=== PATIENT | male | born 1950 | race African-American/Black ===

== ENCOUNTER 2019-10-17 17:59 | Inpatient (IN) | payer OTHER ==
[~2019-10-17] VITALS: Ht 172.7 cm; Wt 56.3 kg
[2019-10-17] MEDS ORDERED: ZOFRAN4 M3 ORAL (18:08)
[2019-10-17] MEDS ORDERED: ACETAMINOPHEN325 M1 ORAL (18:08)
[2019-10-17] MEDS ORDERED: NORCO 10-325 T1 EACH ORAL (18:08)
[2019-10-17] MEDS ORDERED: AMLODIPINE BESY10 MG ORAL (18:08)
[2019-10-17] MEDS ORDERED: OMEPRAZOLE40 M1 ORAL (18:08)
[2019-10-17] MEDS ORDERED: ROBITUSSIN COU118 M1 ORAL (18:08)
[2019-10-17] MEDS ORDERED: B COMPLEX1 EACH ORAL (18:08)
[2019-10-17] MEDS ORDERED: ALBUTEROL2.5 MG/3 M INH (18:08)
[2019-10-17] MEDS ORDERED: ATORVASTATIN CA20 MG ORAL (18:08)
[2019-10-17] MEDS ORDERED: ASPIR 8181 MG ORAL (18:08)
[2019-10-17] MEDS ORDERED: CAPOTEN12.5 MG GT (18:08)
--- NOTE | 2019-10-17 18:09 | NUR ---
ED Nurse Note: Pt from [facility] brought in by [facility] ambulance for coughing and fever. Awake but non verbal, occasionally follows commands. No respiratory distress. 102.5 Rectal temp upon ED arrival. EMS reports tylenol 650mg was given at 1545 rectally in residential.
[2019-10-17 18:12] VITALS: BP 129/80
--- NOTE | 2019-10-17 18:33 | Emergency Room Report ---
History of Present Illness General Chief Complaint: Upper Respiratory Illness Source: Patient, Medical Record, EMS Present Illness HPI Patient sent to the emergency room from nursing facility With reports of cough and fever given the recent circumstances there was concern and consideration from covid-19 Patient himself is not an appropriate historian however there was no reports of vomiting or diarrhea Patient has been reported to be weaker than usual however But no obvious focal deficit were reported History of present illness is significantly limited Allergies: Coded Allergies: No Known Allergies (Unverified , 10/17/19) COVID-19 Screening Contact w/high risk pt: Yes Recent Travel to affected area: No Experienced COVID-19 symptoms?: Yes COVID-19 symptoms experienced: Fever (T>100.4F or >38C), Cough Patient History Limited by: medical condition Past Medical History: see triage record Reviewed Nursing Documentation: PMH: Agreed; PSxH: Agreed Nursing Documentation-PMH Past Medical History: No History, Except For Hx Hypertension: Yes Hx Gastrointestinal Problems: Yes - GERD Review of Systems All Other Systems: limited - Other than the ones mentioned in the history of present illness all others are reviewed however they do stay limited due to the patient's mental status Physical Exam Vital Signs Date Time Temp Pulse Resp B/P (MAP) Pulse Ox O2 Delivery O2 Flow Rate FiO2 10/17/19 17:59 103.5 98 22 172/90 (117) 95 Room Air Sp02 EP Interpretation: reviewed, normal General Appearance: no apparent distress Head: normocephalic, atraumatic Eyes: bilateral eye PERRL, bilateral eye EOMI ENT: EOM grossly intact Neck: supple Respiratory: no respiratory distress, no retraction, no accessory muscle use, crackles - Bilaterally Cardiovascular #1: no edema Gastrointestinal: non tender, soft Genitourinary: no CVA tenderness Musculoskeletal: normal inspection Neurologic: alert, responsive Skin: no rash Lymphatic: no adenopathy Medical Decision Making Diagnostic Impression: Primary Impression: Sepsis Additional Impressions: Suspected COVID-19 virus infection URI (upper respiratory infection) ER Course Patient is a fairly complex patient with multiple differential to consideration including but not limited to cardiac cardiopulmonary and vascular emergencies Patient also evaluated for covid-19 X-ray does not show any obvious acute process Blood work obtained patient further hydrated Given the febrile illness patient will be admitted for further care Labs Test 10/17/19 18:15 10/17/19 18:53 White Blood Count 11.6 K/UL (4.8-10.8) Red Blood Count 5.49 M/UL (4.70-6.10) Hemoglobin 12.7 G/DL (14.2-18.0) Hematocrit 41.7 % (42.0-52.0) Mean Corpuscular Volume 76 FL (80-99) Mean Corpuscular Hemoglobin 23.1 PG (27.0-31.0) Mean Corpuscular Hemoglobin Concent 30.4 G/DL (32.0-36.0) Red Cell Distribution Width 18.9 % (11.6-14.8) Platelet Count 303 K/UL (150-450) Mean Platelet Volume 6.0 FL (6.5-10.1) Neutrophils (%) (Auto) 87.1 % (45.0-75.0) Lymphocytes (%) (Auto) 5.8 % (20.0-45.0) Monocytes (%) (Auto) 6.5 % (1.0-10.0) Eosinophils (%) (Auto) 0.0 % (0.0-3.0) Basophils (%) (Auto) 0.6 % (0.0-2.0) Sodium Level 142 MMOL/L (136-145) Potassium Level 3.6 MMOL/L (3.5-5.1) Chloride Level 104 MMOL/L (98-107) Carbon Dioxide Level 26 MMOL/L (21-32) Anion Gap 12 mmol/L (5-15) Blood Urea Nitrogen 23 mg/dL (7-18) Creatinine 0.9 MG/DL (0.55-1.30) Estimat Glomerular Filtration Rate > 60 mL/min (>60) Glucose Level 117 MG/DL (74-106) Lactic Acid Level 1.10 mmol/L (0.4-2.0) Calcium Level 9.2 MG/DL (8.5-10.1) Total Bilirubin 0.3 MG/DL (0.2-1.0) Aspartate Amino Transf (AST/SGOT) 50 U/L (15-37) Alanine Aminotransferase (ALT/SGPT) 44 U/L (12-78) Alkaline Phosphatase 82 U/L (46-116) Total Creatine Kinase 571 U/L (26-308) Creatine Kinase MB < 0.5 NG/ML (0.0-3.6) Creatine Kinase MB Relative Index 0.0 Troponin I 0.000 ng/mL (0.000-0.056) Pro-B-Type Natriuretic Peptide 121 pg/mL (0-125) Total Protein 8.4 G/DL (6.4-8.2) Albumin 3.3 G/DL (3.4-5.0) Globulin 5.1 g/dL Albumin/Globulin Ratio 0.6 (1.0-2.7) Lipase 155 U/L (73-393) Urine Color Yellow Urine Appearance Clear Urine pH 5 (4.5-8.0) Urine Specific [place] 1.020 (1.005-1.035) Urine Protein 2+ (NEGATIVE) Urine Glucose (UA) Negative (NEGATIVE) Urine Ketones 3+ (NEGATIVE) Urine Blood 1+ (NEGATIVE) Urine Nitrite Negative (NEGATIVE) Urine Bilirubin Negative (NEGATIVE) Urine Urobilinogen 1 MG/DL (0.0-1.0) Urine Leukocyte Esterase Negative (NEGATIVE) Urine RBC 0-2 /HPF (0 - 0) Urine WBC 0-2 /HPF (0 - 0) Urine Squamous Epithelial Cells Occasional /LPF Urine Bacteria Few /HPF (NONE) Rhythm Strip Diag. Results EP Interpretation: yes Rate: 78 Rhythm: NSR, no PVC's, no ectopy Last Vital Signs Date Time Temp Pulse Resp B/P (MAP) Pulse Ox O2 Delivery O2 Flow Rate FiO2 10/17/19 17:59 103.5 98 22 172/90 (117) 95 Room Air Status: improved Disposition: ADMITTED INPATIENT Condition: Serious Referrals: Campbell Robrets MD (PCP) Lucien Gamez DO Oct 17, 2019 18:33
--- NOTE | 2019-10-17 18:40 | NUR ---
ED Nurse Note: Collected blood/urine/MRSA/VRE/CRE/Flu swab and Covid19 swab sent to lab.
[2019-10-17 18:51] LABS: BASOPHILS % (AUTO) 0.6 % (0.0-2.0); HEMATOCRIT 41.7 % (42.0-52.0); HEMOGLOBIN 12.7 G/DL (14.2-18.0); LYMPHOCYTES % (AUTO) 5.8 % (20.0-45.0); MEAN CORPUSCULAR VOLUME 76 FL (80-99); MONOCYTES % (AUTO) 6.5 % (1.0-10.0); NEUTROPHILS % (AUTO) 87.1 % (45.0-75.0); PLATELET COUNT 303 K/UL (150-450); RED BLOOD COUNT 5.49 M/UL (4.70-6.10); RED CELL DISTRIBUTION WIDTH 18.9 % (11.6-14.8); WHITE BLOOD COUNT 11.6 K/UL (4.8-10.8)
--- NOTE | 2019-10-17 19:05 | NUR ---
ED Nurse Note: Collected urine then sent.
[2019-10-17 19:09] LABS: POTASSIUM 3.6 MMOL/L (3.5-5.1); SODIUM 142 MMOL/L (136-145)
[2019-10-17 19:10] LABS: ANION GAP 12 mmol/L (5-15); BLOOD UREA NITROGEN 23 mg/dL (7-18); CALCIUM 9.2 MG/DL (8.5-10.1); CARBON DIOXIDE 26 MMOL/L (21-32); CHLORIDE 104 MMOL/L (98-107); CREATININE 0.9 MG/DL (0.55-1.30)
[2019-10-17 19:30] LABS: APPEARANCE,URINE CLEAR; BILIRUBIN, URINE NEGATIVE (NEGATIVE); GLUCOSE, URINE (UA) NEGATIVE (NEGATIVE); KETONES,URINE 3+ (NEGATIVE); LEUKOCYTE ESTERASE ,URINE NEGATIVE (NEGATIVE); NITRITE,URINE NEGATIVE (NEGATIVE); PH,URINE 5 (4.5-8.0); PROTEIN,URINE 2+ (NEGATIVE); UROBILINOGEN,URINE 1 MG/DL (0.0-1.0)
[2019-10-17 19:33] LABS: COLOR,URINE YELLOW
[2019-10-17 19:41] LABS: ALANINE AMINOTRANSFERASE 44 U/L (12-78); ALBUMIN 3.3 G/DL (3.4-5.0); ALBUMIN/GLOBULIN RATIO 0.6 (1.0-2.7); ALKALINE PHOSPHATASE 82 U/L (46-116); ASPARTATE AMINO TRANSFERASE 50 U/L (15-37); BILIRUBIN,TOTAL 0.3 MG/DL (0.2-1.0); CKMB < 0.5 NG/ML (0.0-3.6); CREATINE KINASE 571 U/L (26-308)
--- NOTE | 2019-10-17 20:14 | NUR ---
HAND-OFF: Report given to Eric Carter RN.
[2019-10-17 20:15] VITALS: BP 107/76
--- NOTE | 2019-10-17 20:15 | NUR ---
ED Nurse Note: RECEIVED PATIENT FROM FLY PEREZ. PATIENT IN BED WITH NO ACUTE SIGNS OF DISTRESS. PATIENT PRESENTS WITH COPIOUS MUCUS ON MASK AND GOWN. CHANGED GOWN AND REMOVED SOILED LINENS. REATTACHED TO MONITOR; VSS. IV INTACT AND PATENT. 2ND IV ESTABLISHED ON LEFT HAND 18G. REASSESSED TEMP 99F RECTAL. ADMINISTERED ANTIPYRERTICS AND IV ABX PRESCRIBED. PATIENT TOLERATED WELL.
[2019-10-17] MEDS ORDERED: Acetaminophen 650 MG SUPP RECTAL ONE ×3 (20:59→21:00)
[2019-10-17 22:00] VITALS: BP 124/70
[2019-10-17] MEDS ORDERED: Albuterol ud Inhalation IN-LINE PRN (22:00)
[2019-10-17] MEDS ORDERED: HYDROcodone/Acetamin 10/325 tab ORAL PRN (22:00)
--- NOTE | 2019-10-17 22:00 | NUR ---
ED Nurse Note: Patient transferred to striker bed; tolerated well; free from injury. reattached to monitor; vss. pt ao4; delayed speech; able to make needs known; follows command and presents with purposeful movement. cedillo noted;intact and patent; draining well to gravity. all safety measures met; bed locked at lowest position; bed alarm on; side rails raised x3 call light within reach. Discussed plan of care; patient aware of pending admission.
[2019-10-17] MEDS: Azithromycin 500 MG in NS 275 ML IV SCH (22:04)
[2019-10-17] MEDS: cefTRIAXone 1 GM in NS 55 ML IVPB SCH (22:05)
[2019-10-17] MEDS ORDERED: Albuterol 90mcg Inhaler 8gm INH PRN (22:45)
[2019-10-18] VITALS (9 sets, daily range): BP systolic 110–157; BP diastolic 60–88
--- NOTE | 2019-10-18 | NUR ---
ED Nurse Note: PATIENT SLEEPING IN BED WITH NO ACUTE DISTRESS. VITALS STABLE TO BASELINE. WILL CONITNUE TO MONITOR. ALL SAFETY MEASURES MET.
[2019-10-18] MEDS ORDERED: HYDROcodone/Acetamin 10/325 tab ORAL PRN (02:00)
--- NOTE | 2019-10-18 02:00 | NUR ---
ED Nurse Note: Patient presents with overproductive secretions. Demonstrated how to self suction with dina; patient able to return demonstration. Placed suction at arms length. patient resting in bed with no acute distress. will continue to monitor.
--- NOTE | 2019-10-18 04:00 | NUR ---
ED Nurse Note: Patient in bed with no acute distress. vitals stable to baseline. Pt noted to self suction secretions. able to make needs known. will continue to monitor.
--- NOTE | 2019-10-18 04:30 | History and Physical Report ---
DATE OF ADMISSION: 10/17/2019 HISTORY OF PRESENT ILLNESS: This is a 68-year-old male who came to the emergency room from [facility] where he has fever, cough, short of breath for last few days. The patient came with the rule out COVID-19. The patient also has been a smoker and he is feeling gikp-bx-lytldhid short of breath and advised getting a chest x-ray showing bilateral pneumonia with interstitial lung disease. PAST MEDICAL HISTORY: Significant for CHF, cardiomyopathy, hypertension, COPD, and smoker. ALLERGIES: NKA. FAMILY HISTORY: Noncontributory. SOCIAL HISTORY: Lives at senior living, mostly wheelchair bound. REVIEW OF SYSTEMS: He is feeling short of breath, cough, and no fever at senior living on and off for last 2 days and productive cough. The chest x-ray was showing pneumonia. PHYSICAL EXAMINATION: VITAL SIGNS: Blood pressure is 130/70, pulse 84, respirations 18, and temperature is 99.6. Currently, his skin is diaphoretic. HEENT: Eyes are open. NECK: Supple. CHEST: Bilateral scattered wheezing and crackles. CARDIOVASCULAR: Irregular rhythm. No gallop. No murmur. ABDOMEN: Soft. Positive bowel sounds, nontender. EXTREMITIES: No edema. GENITOURINARY: Deferred. LABORATORY DATA: White counts are slightly high. ASSESSMENT AND PLAN: 1. Acute COPD exacerbation. 2. Rule out COVID. 3. Pneumonia. 4. CHF. 5. Hypertension. 6. History of smoker. 7. We will put him on mechanical soft diet, IV fluid, IV antibiotics, Zithromax and consider Pulmonary consult and ID consult. Fritz Roberts M.D. DR: Nelli JOB#: [id number] CC:
--- NOTE | 2019-10-18 06:00 | NUR ---
ED Nurse Note: patient incontinent and presents with bm; soft formed stool. removed soiled linen; provided partial bed bath; changed gown. reattached to monitor; vitals remain stable to baseline. suction within reach.
--- NOTE | 2019-10-18 07:13 | NUR ---
HAND-OFF: Report given to JOSÉ ANTONIO PEREZ. PATIENT IN STABLE CONDITION. ENDORSED PENDING ADMISSION.
--- NOTE | 2019-10-18 08:51 | Diagnostic Imaging Report ---
Indication: Chest pain Technique: XRAY Chest 1v Comparison: None Findings: Lungs are mildly hyperinflated. There is no focal airspace consolidation. No pleural effusion, pneumothorax or radiographic evidence of suggest pulmonary edema. Heart size and mediastinal contours within normal limits. Atherosclerotic gastric calcifications are noted. There are degenerative changes in the spine and shoulders. No acute osseous abnormality. Impression: Slight hyperinflation may suggest COPD. Correlation with clinical history recommended. No focal airspace consolidation. Atherosclerotic vascular calcifications.
[2019-10-18] MEDS ORDERED: Captopril 25mg tab ONE (09:00)
[2019-10-18] MEDS: Captopril 12.5mg tab ORAL SCH ×2 (09:03→17:16)
[2019-10-18] MEDS: Aspirin EC 81mg tab ORAL SCH (09:03)
--- NOTE | 2019-10-18 09:17 | NUR ---
ED Nurse Note: Pt suctioned due to excess mucus. Pt given morning meds. Pt VSS and no acute distress.
[2019-10-18] MEDS ORDERED: Captopril 12.5mg tab GT SCH (10:00)
--- NOTE | 2019-10-18 10:30 | NUR ---
*-* INSURANCE *-* ALL AVAILABLE CLINICALS HAVE BEEN FAXED TO: PATIENT IN ER WAITING ON BED [facility] ref# [facility] ph# [phone] fax# [phone] & [facility] ph# [phone] fax# [phone]
--- NOTE | 2019-10-18 12:00 | NUR ---
ED Nurse Note: f/c output 500 cc.
--- NOTE | 2019-10-18 14:15 | NUR ---
ED Nurse Note: Report given to Andi PEREZtelecommunications cable jointer floor.
--- NOTE | 2019-10-18 14:50 | NUR ---
ED Nurse Note: Pt cleared by MD to be transferred to tele floor. Pt is on monitor and received by ANA Escamilla.
--- NOTE | 2019-10-18 18:27 | NUR ---
NURSE NOTES: Patient arrived on floor with nausea. Provided po Zofran. Patient had a fever of 103.6. Provided the po tylenol 325 mg. and temperature is at 102.6. Cooling measures provided, removed sheets and blanket, loosened hospital gown, turned on air conditioner and turned down room thermostat. Left message with Dr. Dioni Gordillo informing him of patients temperature. Left message with Niharika at Dr. Campbell Roberts's answering service. Will continue to monitor patient.
--- NOTE | 2019-10-18 19:04 | NUR ---
NURSE NOTES: Applied more cooling measures, one ice bag under each arm pit, protected with a pillow case, snaps at top of gown opened on both sides to expose more skin, blankets and sheets removed. Patient cooperating fully.
--- NOTE | 2019-10-18 19:22 | NUR ---
HAND-OFF: Report given to Mukund Siddiqi. Patient sitting up in bed, watching television, on room air, bed in lowest position, call light within reach, SCD's on bilateral lower extremities, no c/o pain, ice pack under bilateral armpits, sheets and blankets off. Just entered order for acetaminophen for fever.
--- NOTE | 2019-10-18 19:23 | NUR ---
NURSE NOTES: Got report from Andi RN. Pt in stable condition. Denies any pain. Denies any n/v or SOB. No s/s of distress or discomfort noted. Pt resting in bed comfortably. Bed in low and locked position, call light within reach, bedside table within reach. Continue to monitor.
[2019-10-18] MEDS: cefTRIAXone 1 GM in NS 55 ML IVPB SCH (21:38)
[2019-10-18] MEDS: Azithromycin 500 MG in NS 275 ML IV SCH (22:58)
[2019-10-19] VITALS: BP 141/70
--- NOTE | 2019-10-19 00:15 | Progress Note ---
DATE: 10/18/2019 HISTORY OF PRESENT ILLNESS: The patient was admitted last night for having a fever, sepsis, short of breath, cough, and sputum production. The patient is still not looking good, having a fever of 102 and cough and congestion, and poor p.o. intake. PHYSICAL EXAMINATION: VITAL SIGNS: Blood pressure is 120/70, pulse 84, respirations 18 to 24, temperature is 102. His skin is slightly diaphoretic. HEENT: Eyes are open. NECK: Supple. CHEST: Bilateral decreased breath sounds and scattered crackles. CARDIOVASCULAR: Regular rhythm. No gallop. No murmur. ABDOMEN: Soft. Positive bowel sounds. Nontender. EXTREMITIES: No edema. LABORATORY DATA: BUN and creatinine slightly high. ASSESSMENT AND PLAN: 1. Dehydration. 2. Rule out COVID. 3. Pneumonia. 4. Sepsis. 5. Hypertension. The patient is on tele bed. Continue current treatment. Continue IV antibiotics. Bronchodilator treatment. Pulmonary is on consult and ID is also on consult. Fritz Roberts M.D. DR: Nelli JOB#: [id number] CC:
[2019-10-19] MEDS: Captopril 12.5mg tab ORAL SCH ×3 (02:06→17:19)
[2019-10-19 04:00] VITALS: BP 133/72
--- NOTE | 2019-10-19 07:30 | NUR ---
HAND-OFF: Report given to Angela PEREZ.
[2019-10-19 08:00] VITALS: BP 160/85
--- NOTE | 2019-10-19 08:23 | NUR ---
CASE MANAGEMENT:REVIEW 10/17/19 @ 1754 68 YR OLD MALE BIBA FROM [facility] CC: COUGH AND FEVER SI: SEPSIS. SUSPECTED COVID 19 103.5 98 22 172/90 95% ON RA WBC+11.6 TCK+571 IS: 1L NS BOLUS COVID 19 SWAB CHEST XRAY INFLUENZA A&B BLOOD CX PATIENT REMAINED IN ER UNTIL 10/18/19 @ 1827 AT WHICH TIME HE WAS ADMITTED TO TELEMETRY 10/19/19 SI: SEPSIS. SUSPECTED COVID 19 99.5 108 20 141/70 95% ON RA IS: IV ROCEPHIN Q24 IV AZITHROMYCIN Q24 IVF@75/HR LIPITOR PO QHS CAPTOPRIL PO Q8HRS NORVASC PO QD ASA PO QD TYLENOL PO Q6HRS PRN : TELEMETRY STATUS DCP: FROM [facility] PLAN: ISOLATION F/U ON PENDING BLOOD CX AND COVID 19
[2019-10-19] MEDS: Aspirin EC 81mg tab ORAL SCH (09:53)
[2019-10-19 12:00] VITALS: BP 112/77
--- NOTE | 2019-10-19 12:41 | Infectious Diseases Prog Note ---
Assessment/Plan Assessment/Plan ID consult was dictated Subjective Allergies: Coded Allergies: No Known Allergies (Unverified , 10/17/19) Objective Vital Signs Last 24 Hour Vital Signs Date Time Temp Pulse Resp B/P (MAP) Pulse Ox O2 Delivery O2 Flow Rate FiO2 10/19/19 09:53 160/85 10/19/19 09:53 100 160/85 10/19/19 09:00 Room Air 10/19/19 08:00 97.5 100 22 160/85 (110) 95 10/19/19 07:55 79 10/19/19 07:00 100 18 95 Room Air 21 10/19/19 06:36 99.5 10/19/19 04:00 83 10/19/19 04:00 99.5 95 20 133/72 (92) 96 10/19/19 02:47 Room Air 10/19/19 02:06 141/70 10/19/19 00:00 108 10/19/19 00:00 99.5 98 20 141/70 (93) 95 10/18/19 21:00 Room Air 10/18/19 20:05 92 16 94 Room Air 21 10/18/19 20:00 101 10/18/19 20:00 101.0 88 20 145/70 (95) 95 10/18/19 17:47 102.6 10/18/19 17:16 157/69 10/18/19 16:46 Room Air 10/18/19 16:00 108 10/18/19 16:00 103.6 91 20 157/69 (98) 92 10/18/19 14:50 97.9 88 18 133/76 99 Room Air 10/18/19 14:40 99.1 83 17 129/69 98 Room Air Height (Feet): 5 Height (Inches): 8.00 Weight (Pounds): 135 Microbiology Date/Time Source Procedure Growth Status 10/17/19 18:30 Blood Blood Culture - Preliminary NO GROWTH AFTER 24 HOURS Resulted 10/17/19 18:15 Blood Blood Culture - Preliminary NO GROWTH AFTER 24 HOURS Resulted 10/17/19 18:15 Nasal Nares - Final Complete 10/17/19 18:15 Nasal Nares - Final Complete Current Medications Medications (Trade) Dose Ordered Sig/Leslie Route PRN Reason Start Time Stop Time Status Last Admin Dose Admin Acetaminophen (Tylenol) 325 mg Q6H PRN ORAL For Pain 10/17/19 22:00 11/16/19 21:59 10/18/19 17:17 Acetaminophen (Tylenol) 650 mg Q6H PRN ORAL Temp >100.5 10/18/19 19:30 11/17/19 19:29 10/19/19 06:06 Acetaminophen/ Hydrocodone Bitart ([place] 10/325) 1 tab Q4H PRN ORAL Pain Scale (6-10) 10/18/19 02:00 10/25/19 01:59 10/18/19 03:07 Albuterol Sulfate (Proventil MDI) 1 puff Q4H PRN INH Shortness of Breath 10/17/19 22:45 01/15/20 22:44 Amlodipine Besylate (Norvasc) 10 mg DAILY ORAL 10/18/19 09:00 11/17/19 08:59 10/19/19 09:53 Aspirin (Ecotrin) 81 mg DAILY ORAL 10/18/19 09:00 12/02/19 08:59 10/19/19 09:53 Atorvastatin Calcium (Lipitor) 20 mg BEDTIME ORAL 10/19/19 21:00 01/16/20 20:59 Azithromycin 500 mg/Sodium Chloride 275 ml @ 275 mls/hr Q24HRS IV 10/17/19 23:00 10/22/19 22:59 10/18/19 22:58 Captopril (Capoten) 12.5 mg Q8H ORAL 10/18/19 10:00 11/17/19 09:59 10/19/19 09:53 Ceftriaxone Sodium 1 gm/ Sodium Chloride 55 ml @ 110 mls/hr Q24HRS IVPB 10/17/19 22:00 10/24/19 21:59 10/18/19 21:38 Ondansetron HCl (Zofran) 4 mg Q6H PRN IVP Nausea & Vomiting 10/18/19 19:30 11/17/19 19:29 Sodium Chloride 1,000 ml @ 75 mls/hr [id number] IV 10/17/19 22:00 11/16/19 21:59 10/19/19 10:02 Octavio Portillo MD Oct 19, 2019 12:41
--- NOTE | 2019-10-19 15:00 | NUR ---
NURSE NOTES: Received pt at 0730 from [facility]. pt is awake and orient. pt has intact iv access is running well . no complain of pain. pt is on continues hear monitoring. pt has Azar cath in place is working well. all needs attended, bed is locked and is in the lowest position. call light within easy reach will continue to monitor.
[2019-10-19 16:00] VITALS: BP 105/69
--- NOTE | 2019-10-19 16:03 | NUR ---
*-* INSURANCE *-* UPDATED AVAILABLE CLINICALS HAVE BEEN FAXED TO: [facility] ref# pending ph# [phone] fax# [phone] & [facility] ph# [phone] fax# [phone] Addendum: 10/20/19 at 0841 by MOOKIE CONNELL CM [facility] ref# [id number] CM: Maryanne Mixon Ph# [phone] ext [phone] fax# [phone]
--- NOTE | 2019-10-19 19:59 | Consultation ---
DATE OF CONSULTATION: 10/19/2019 PULMONARY CONSULTATION CONSULTING PHYSICIAN: Claudio Aguilar M.D. REQUESTING PHYSICIAN: Fritz Roberts M.D. REASON FOR CONSULTATION: Pneumonia. HISTORY OF PRESENT ILLNESS: This is a 68-year-old male who is a [facility] resident. He was brought into the hospital with complaints of cough and chest congestion. There was concern about COVID-19. The patient is a very poor historian. He was found to be on room air without any laboratory testing abnormality except for mild leukocytosis. He also underwent a chest x-ray which showed slight hyperinflation with no acute findings. The patient admitted to the medical floor. PAST MEDICAL HISTORY: Notable for GERD, hypertension, [facility] resident. REVIEW OF SYSTEMS: Denies any headaches, hematemesis, melena, hematochezia, night sweats, or weight loss. PHYSICAL EXAMINATION: GENERAL: Reveals a 68-year-old male. HEENT: Unremarkable. LUNGS: Clear breath sounds bilaterally. HEART: Normal heart sounds. ABDOMEN: Soft. EXTREMITIES: There is no edema. NEUROLOGIC: Nonfocal. LABORATORY DATA: Laboratory testing as discussed above is normal except for mild leukocytosis. Chemistries are negative. Urinalysis shows few pus cells. X-ray chest negative. Blood cultures negative so far. IMPRESSION: 1. Rule out pneumonia. 2. Leukocytosis. 3. shelter resident. 4. Hypertension. DISCUSSION: Admitted to the hospital. Continue home medications. Empiric broad-spectrum antibiotics to be given consisting of Rocephin and azithromycin. We will provide oxygen and pulmonary hygiene. We will follow. Claudio Aguilar M.D. DR: Johnny JOB#: [id number] CC:
[2019-10-19 20:00] VITALS: BP 133/99
[2019-10-19] MEDS: Atorvastatin 20mg tab ORAL SCH (20:59)
--- NOTE | 2019-10-19 21:30 | Consultation ---
DATE OF CONSULTATION: 10/19/2019 INFECTIOUS DISEASE CONSULTATION This consult is for coverage of Dr. Foley. CONSULTING PHYSICIAN: Octavio Portillo MD. PRIMARY ATTENDING: Campbell Roberts MD. REASON FOR CONSULT: Sepsis, COPD exacerbation, rule out of COVID. HISTORY OF PRESENT ILLNESS: This is a 68-year-old male who is a long term resident admitted on 10/17/2019 because of fever, shortness of breath, coughing. Had a temperature of 103.5 in the ER. At the time of admission, he was tachypneic with a respiratory rate up to 27. Patient is not a source of history. PAST MEDICAL HISTORY: Hypertension, history of CVA, hyperlipidemia, gastroesophageal reflux disease. ALLERGIES: No known drug allergies. MEDICATIONS: Atorvastatin, Zofran, Tylenol, captopril, amlodipine, Beltrami, azithromycin, albuterol, ceftriaxone, Tylenol. SOCIAL HISTORY: Single. [facility] resident. Former smoker. No other history is obtainable by the patient. PHYSICAL EXAMINATION: VITAL SIGNS: Current temperature 97.5, pulse 100, blood pressure 160/85. GENERAL APPEARANCE: No acute distress. Seems to be thin. HEAD AND NECK: [place] conjunctivae. HEART: Tachycardic. LUNGS: Decreased sounds. ABDOMEN: Soft. EXTREMITIES: No edema. NEUROLOGIC: He is awake, does not communicate. LABORATORY AND DIAGNOSTIC DATA: WBC 11.6, hemoglobin 12.7, hematocrit 41.7, platelets 303. Sodium 142, potassium 3.6, chloride 104, bicarb 26, BUN 23, creatinine 0.9, glucose is 117. Blood culture so far no growth. Influenza A and B are negative. IMPRESSION: Sepsis with tachycardia, tachypnea, fever, COPD exacerbation, suspected COVID-19 disease, hypertension, hyperlipidemia, status post CVA, lymphocytopenia. RECOMMENDATION: Continue Zithromax and Rocephin. We will follow up COVID-19 tests. We will follow up the cultures. At the end of my exam, I thank Dr. Roberts, for involving me in the care of this patient. Octavio Portillo M.D. DR: ANTIONETTE JOB#: [id number] CC:
--- NOTE | 2019-10-19 23:00 | Progress Note ---
DATE: 10/19/2019 HISTORY OF PRESENT ILLNESS: This is a 68-year-old male who came with short of breath, cough with sputum production, fever, to rule out COVID. His results are pending. Physically, he is doing okay. His fever subsided. Shortness of breath is improving. PHYSICAL EXAMINATION: VITAL SIGNS: His T-max today is 101, blood pressure is 112/77, pulse 110, respirations 20, saturation 92% to 95%. HEENT: NAD. CHEST: Bilateral decreased breath sounds. Scattered crackles. CARDIOVASCULAR: Regular rhythm. ABDOMEN: Soft. EXTREMITIES: CCE. NEUROLOGICAL: The patient has generalized weakness. LABORATORY DATA: The patient has no labs today. His COVID test is pending. Blood cultures are negative. ASSESSMENT AND PLAN: 1. Fever, rule out sepsis. 2. Acute COPD. 3. Pneumonia. 4. Hypertension. 5. We will currently continue antibiotics. The patient is currently on aspirin, Norvasc, , Zithromax. Pulmonary and ID is on consult. Fritz Roberts M.D. DR: Nelli JOB#: [id number] CC:
[2019-10-19] MEDS: cefTRIAXone 1 GM in NS 55 ML IVPB SCH (23:03)
[2019-10-19] MEDS: Azithromycin 500 MG in NS 275 ML IV SCH (23:05)
[2019-10-20] VITALS: BP 115/61
[2019-10-20] MEDS: Captopril 12.5mg tab ORAL SCH ×3 (01:36→17:08)
[2019-10-20 04:00] VITALS: BP 107/69
--- NOTE | 2019-10-20 07:22 | NUR ---
HAND-OFF: Report given to ANA Miller. Patient shows no signs of distress. Endorsed plan of care. .
--- NOTE | 2019-10-20 07:30 | NUR ---
NURSE NOTES: Received pt from ANA CARABALLO. pt is awake and orient. pt has intact iv access is running well . no complain of pain. pt is on continues hear monitoring. pt has Azar cath in place is working well. all needs attended, bed is locked and is in the lowest position. call light within easy reach. will continue to monitor.
[2019-10-20 08:00] VITALS: BP 96/59
--- NOTE | 2019-10-20 08:30 | NUR ---
CASE MANAGEMENT:REVIEW 10/20/19 SI: SEPSIS. SUSPECTED COVID 19 100.8 125 20 107/69 95% ON RA IS: IV ROCEPHIN Q24 IV AZITHROMYCIN Q24 IVF@75/HR LIPITOR PO QHS CAPTOPRIL PO Q8HRS NORVASC PO QD ASA PO QD TYLENOL PO Q6HRS PRN : TELEMETRY STATUS DCP: FROM [facility] PLAN: ISOLATION F/U ON PENDING BLOOD CX AND COVID 19
[2019-10-20] MEDS: Aspirin EC 81mg tab ORAL SCH (09:21)
--- NOTE | 2019-10-20 10:25 | Infectious Diseases Prog Note ---
Assessment/Plan Assessment/Plan antibiotics : ceftriaxone, azithromycin A 1. pneumonia r/o COVID 19 pneumonia 2. fever 3. hypertension 4. GERD P 1. continue ceftriaxone, azithromycin 2. will follow up cultures 3. COVID 19 test pending 4. continue isolation Subjective ROS Limited/Unobtainable: Yes Allergies: Coded Allergies: No Known Allergies (Unverified , 10/17/19) Objective Vital Signs Last 24 Hour Vital Signs Date Time Temp Pulse Resp B/P (MAP) Pulse Ox O2 Delivery O2 Flow Rate FiO2 10/20/19 09:00 108 96/59 10/20/19 08:00 100.8 108 20 96/59 (71) 97 10/20/19 07:36 100.5 10/20/19 04:00 125 10/20/19 04:00 100.8 108 20 107/69 (82) 95 10/20/19 01:36 115/61 10/20/19 00:00 104 10/20/19 00:00 99.7 106 20 115/61 (79) 93 10/19/19 21:00 Room Air 10/19/19 20:00 101.7 105 22 133/99 (110) 89 10/19/19 17:59 99 10/19/19 17:19 105/69 10/19/19 16:00 101.8 106 20 105/69 (81) 98 10/19/19 14:14 101.0 10/19/19 12:00 102.1 110 20 112/77 (89) 92 10/19/19 11:56 108 Height (Feet): 5 Height (Inches): 8.00 Weight (Pounds): 135 Microbiology Date/Time Source Procedure Growth Status 10/17/19 18:30 Blood Blood Culture - Preliminary NO GROWTH AFTER 48 HOURS Resulted 10/17/19 18:15 Blood Blood Culture - Preliminary NO GROWTH AFTER 48 HOURS Resulted 10/17/19 18:15 Nasal Nares MRSA Culture - Final NO METHICILLIN RESISTANT STAPH AUREUS... Complete 10/17/19 18:15 Nasal Nares - Final Complete 10/17/19 18:15 Nasal Nares - Final Complete 10/18/19 12:53 Rectum VRE Culture - Final NO VANCOMYCIN RESISTANT ENTEROCOCCUS ... Complete 10/17/19 18:15 Rectum - Final NO CARBAPENEM-RESISTANT ENTEROBACTERI... Complete 10/17/19 18:15 Rectum VRE Culture - Final NO VANCOMYCIN RESISTANT ENTEROCOCCUS ... Complete Current Medications Medications (Trade) Dose Ordered Sig/Leslie Route PRN Reason Start Time Stop Time Status Last Admin Dose Admin Acetaminophen (Tylenol) 325 mg Q6H PRN ORAL For Pain 10/17/19 22:00 11/16/19 21:59 10/19/19 13:44 Acetaminophen (Tylenol) 650 mg Q6H PRN ORAL Temp >100.5 10/18/19 19:30 11/17/19 19:29 10/20/19 07:06 Acetaminophen/ Hydrocodone Bitart ([place] 10/325) 1 tab Q4H PRN ORAL Pain Scale (6-10) 10/18/19 02:00 10/25/19 01:59 10/18/19 03:07 Albuterol Sulfate (Proventil MDI) 1 puff Q4H PRN INH Shortness of Breath 10/17/19 22:45 01/15/20 22:44 Amlodipine Besylate (Norvasc) 10 mg DAILY ORAL 10/18/19 09:00 11/17/19 08:59 10/19/19 09:53 Aspirin (Ecotrin) 81 mg DAILY ORAL 10/18/19 09:00 12/02/19 08:59 10/20/19 09:21 Atorvastatin Calcium (Lipitor) 20 mg BEDTIME ORAL 10/19/19 21:00 01/16/20 20:59 10/19/19 20:59 Azithromycin 500 mg/Sodium Chloride 275 ml @ 275 mls/hr Q24HRS IV 10/17/19 23:00 10/22/19 22:59 10/19/19 23:05 Captopril (Capoten) 12.5 mg Q8H ORAL 10/18/19 10:00 11/17/19 09:59 10/20/19 01:36 Ceftriaxone Sodium 1 gm/ Sodium Chloride 55 ml @ 110 mls/hr Q24HRS IVPB 10/17/19 22:00 10/24/19 21:59 10/19/19 23:03 Ondansetron HCl (Zofran) 4 mg Q6H PRN IVP Nausea & Vomiting 10/18/19 19:30 11/17/19 19:29 Sodium Chloride 1,000 ml @ 75 mls/hr [id number] IV 10/17/19 22:00 11/16/19 21:59 10/20/19 02:59 Jone Foley MD October 20, 2019 10:25
--- NOTE | 2019-10-20 10:51 | NUR ---
NURSE NOTES: Dr GONZALES visited pt and is aware about pt' fever and tachycardia, no new order to RN. Dr dunlap F/U. Will continue to monitor. Addendum: 10/20/19 at 1311 by Angela Greer RN and given fact sheet to pt.
[2019-10-20] MEDS ORDERED: Hydroxychloroquine Fact Sheet MISC ONE (11:00)
--- NOTE | 2019-10-20 11:27 | Pulmonology Progress Note ---
Assessment/Plan Assessment/Plan IMPRESSION: 1. Rule out pneumonia. 2. Leukocytosis. 3. shelter resident. 4. Hypertension. DISCUSSION: Admitted to the hospital. Continue home medications. Empiric broad-spectrum antibiotics to be given consisting of Rocephin and azithromycin. Continue oxygen and pulmonary hygiene. I will follow. Claudio Aguilar M.D. Subjective ROS Limited/Unobtainable: Yes Interval Events: None new Constitutional: Reports: no symptoms HEENT: Repors: no symptoms Respiratory: Reports: no symptoms Cardiovascular: Reports: no symptoms Gastrointestinal/Abdominal: Reports: no symptoms Genitourinary: Reports: no symptoms Allergies: Coded Allergies: No Known Allergies (Unverified , 10/17/19) Objective Last 24 Hour Vital Signs Date Time Temp Pulse Resp B/P (MAP) Pulse Ox O2 Delivery O2 Flow Rate FiO2 10/20/19 10:00 96/59 10/20/19 09:00 108 96/59 10/20/19 09:00 Nasal Cannula 2.0 10/20/19 08:00 100.8 108 20 96/59 (71) 97 10/20/19 07:40 101 10/20/19 07:36 100.5 10/20/19 04:00 125 10/20/19 04:00 100.8 108 20 107/69 (82) 95 10/20/19 01:36 115/61 10/20/19 00:00 104 10/20/19 00:00 99.7 106 20 115/61 (79) 93 10/19/19 21:00 Room Air 10/19/19 20:00 101.7 105 22 133/99 (110) 89 10/19/19 17:59 99 10/19/19 17:19 105/69 10/19/19 16:00 101.8 106 20 105/69 (81) 98 10/19/19 14:14 101.0 10/19/19 12:00 102.1 110 20 112/77 (89) 92 10/19/19 11:56 108 Intake and Output 10/19/19 10/20/19 19:00 07:00 Intake Total 1244 ml Output Total 800 ml 600 ml Balance 444 ml -600 ml Intake Oral 344 ml IV Total 900 ml Output Urine Total 800 ml 600 ml # Voids 1 # Bowel Movements 1 General Appearance: no acute distress HEENT: normocephalic Respiratory/Chest: chest wall non-tender, lungs clear Cardiovascular: normal peripheral pulses, normal rate Abdomen: normal bowel sounds Microbiology Date/Time Source Procedure Growth Status 10/17/19 18:30 Blood Blood Culture - Preliminary NO GROWTH AFTER 48 HOURS Resulted 10/17/19 18:15 Blood Blood Culture - Preliminary NO GROWTH AFTER 48 HOURS Resulted 10/17/19 18:15 Nasal Nares MRSA Culture - Final NO METHICILLIN RESISTANT STAPH AUREUS... Complete 10/17/19 18:15 Nasal Nares - Final Complete 10/17/19 18:15 Nasal Nares - Final Complete 10/18/19 12:53 Rectum VRE Culture - Final NO VANCOMYCIN RESISTANT ENTEROCOCCUS ... Complete 10/17/19 18:15 Rectum - Final NO CARBAPENEM-RESISTANT ENTEROBACTERI... Complete 10/17/19 18:15 Rectum VRE Culture - Final NO VANCOMYCIN RESISTANT ENTEROCOCCUS ... Complete Current Medications Medications (Trade) Dose Ordered Sig/Leslie Route PRN Reason Start Time Stop Time Status Last Admin Dose Admin Acetaminophen (Tylenol) 325 mg Q6H PRN ORAL For Pain 10/17/19 22:00 11/16/19 21:59 10/19/19 13:44 Acetaminophen (Tylenol) 650 mg Q6H PRN ORAL Temp >100.5 10/18/19 19:30 11/17/19 19:29 10/20/19 07:06 Acetaminophen/ Hydrocodone Bitart ([place] 10/325) 1 tab Q4H PRN ORAL Pain Scale (6-10) 10/18/19 02:00 10/25/19 01:59 10/18/19 03:07 Albuterol Sulfate (Proventil MDI) 1 puff Q4H PRN INH Shortness of Breath 10/17/19 22:45 01/15/20 22:44 Amlodipine Besylate (Norvasc) 10 mg DAILY ORAL 10/18/19 09:00 11/17/19 08:59 10/19/19 09:53 Aspirin (Ecotrin) 81 mg DAILY ORAL 10/18/19 09:00 12/02/19 08:59 10/20/19 09:21 Atorvastatin Calcium (Lipitor) 20 mg BEDTIME ORAL 10/19/19 21:00 01/16/20 20:59 10/19/19 20:59 Azithromycin 500 mg/Sodium Chloride 275 ml @ 275 mls/hr Q24HRS IV 10/17/19 23:00 10/22/19 22:59 10/19/19 23:05 Captopril (Capoten) 12.5 mg Q8H ORAL 10/18/19 10:00 11/17/19 09:59 10/20/19 01:36 Ceftriaxone Sodium 1 gm/ Sodium Chloride 55 ml @ 110 mls/hr Q24HRS IVPB 10/17/19 22:00 10/24/19 21:59 10/19/19 23:03 Guaifenesin/ Dextromethorphan (Robitussin DM Syrup) 10 ml Q4H PRN ORAL For Cough 10/20/19 11:00 01/18/20 10:59 Hydroxychloroquine Sulfate (Plaquenil) 200 mg Q12HR ORAL 10/21/19 09:00 10/24/19 21:01 Hydroxychloroquine Sulfate (Plaquenil) 400 mg Q12HR ORAL 10/20/19 12:00 10/20/19 21:01 Ondansetron HCl (Zofran) 4 mg Q6H PRN IVP Nausea & Vomiting 10/18/19 19:30 11/17/19 19:29 Sodium Chloride 1,000 ml @ 75 mls/hr [id number] IV 10/17/19 22:00 11/16/19 21:59 10/20/19 02:59 Claudio Aguilar MD October 20, 2019 11:27
[2019-10-20 11:39] LABS: MEAN CORPUSCULAR VOLUME 72 FL (80-99); PLATELET COUNT 284 K/UL (150-450); RED BLOOD COUNT 5.14 M/UL (4.70-6.10); RED CELL DISTRIBUTION WIDTH 16.3 % (11.6-14.8); WHITE BLOOD COUNT 15.7 K/UL (4.8-10.8)
[2019-10-20 12:00] VITALS: BP 119/69
[2019-10-20 12:03] LABS: ANION GAP 8 mmol/L (5-15); BLOOD UREA NITROGEN 13 mg/dL (7-18); CALCIUM 8.7 MG/DL (8.5-10.1); CARBON DIOXIDE 28 MMOL/L (21-32); CHLORIDE 103 MMOL/L (98-107); CREATININE 0.9 MG/DL (0.55-1.30); POTASSIUM 2.8 MMOL/L (3.5-5.1); SODIUM 139 MMOL/L (136-145)
--- NOTE | 2019-10-20 13:11 | NUR ---
NURSE NOTES: Pt potassium is 2.8 Md Roberts made aware.. waiting on response
--- NOTE | 2019-10-20 13:20 | NUR ---
NURSE NOTES: Dr ALBERT is aware about K 2.8 and other lab results and V/S, ordered KCL PO 40meq now and 40meq at night, noted and carried out. will continue to monitor.
[2019-10-20] MEDS: Guaifenesin/DM 10ml syrup ORAL PRN ×2 (13:29→20:29)
--- NOTE | 2019-10-20 14:27 | NUR ---
*-* INSURANCE *-* UPDATED AVAILABLE CLINICALS HAVE BEEN FAXED TO: [facility] ref# pending ph# [phone] fax# [phone] & [facility] ref# [id number] CM: Maryanne Mixon ext [phone] fax# [phone]
[2019-10-20 16:00] VITALS: BP 137/68
--- NOTE | 2019-10-20 18:03 | NUR ---
NURSE NOTES: Gagandeep Roberts and Alaina were notified about CV-19 positive
--- NOTE | 2019-10-20 19:39 | NUR ---
HAND-OFF: Report given to ANA PALAFOX. Pt is awake and stable.
--- NOTE | 2019-10-20 19:47 | NUR ---
NURSE NOTES: RECEIVED REPORT FROM ANA ROSE. PATIENT AWAKE IN BED, AAOX3, VERBALLY RESPONSIVE AND ABLE TO MAKE NEEDS KNOWN. NO COMPLAINTS OF PAIN OR DISCOMFORT AT THIS TIME. SCDS OFF. BREATHING IS EVEN AND UNLABORED ON ROOM AIR, NO S/SX OF DISTRESS. SANTA CATHETER DRAINING WELL TO GRAVITY. IV SITE ON RIGHT HAND ASYMPTOMATIC, PATENT AND INTACT WITH 1/2 NS RUNNING AT 75 ML/HR. FALL AND ASPIRATION PRECAUTIONS IMPLEMENTED. ON CONTACT AND DROPLET ISOLATION FOR CV-19. BED LOCKED AND IN LOWEST POSITION WITH SIDERAILS UP X 3. CALL LIGHT WITHIN REACH. WILL CONTINUE TO MONITOR FOR ANY CHANGES.
[2019-10-20] MEDS: Atorvastatin 20mg tab ORAL SCH (20:31)
[2019-10-20 21:00] VITALS: BP 120/94
[2019-10-20] MEDS: cefTRIAXone 1 GM in NS 55 ML IVPB SCH (21:00)
--- NOTE | 2019-10-20 21:00 | NUR ---
NURSE NOTES: PATIENT NOTED WITHOUT NASAL CANNULA ON. EDUCATED PATIENT ON THE IMPORTANCE OF KEEPING NC ON FOR OXYGEN SUPPLEMENT, BUT PATIENT REFUSED AND TOOK IT OFF AGAIN. O2 SATURATION ON ROOM AIR 95%. WILL CONTINUE TO MONITOR.
[2019-10-20] MEDS: Azithromycin 500 MG in NS 275 ML IV SCH (23:27)
[2019-10-21] VITALS (7 sets, daily range): BP systolic 102–134; BP diastolic 55–82
--- NOTE | 2019-10-21 01:50 | NUR ---
HAND-OFF: Report given to ANA REYES. PATIENT TRANSFERRED WITHOUT SUPPLEMENTAL OXYGEN PER PATIENT'S REQUEST. PATIENT PLACED ON OXYGEN VIA NASAL CANNULA ONCE ON THE FLOOR. PLAN OF CARE ENDORSED.
--- NOTE | 2019-10-21 01:54 | NUR ---
NURSE NOTES: Receive a patient from juan david Nunez RN. Pt is A&o 3-4 , vitals are stable except temperature is 102.3. Pt O2 saturation is 97% in 2L oxygen NC , and no complain of pain. pt has 16F Azar catheter inserted In ER. pt has 20G iv on his R hand and 1/2 ns 75cc running . Bed in the lower position, locked, and alarm on. Call light within reach. We will keep monitoring him. Addendum: 10/21/19 at 0205 by ERIC BRIAN RN tele nurse
[2019-10-21] MEDS ORDERED: HYDROcodone/Acetamin 10/325 tab ORAL PRN (02:00)
[2019-10-21] MEDS: Captopril 12.5mg tab ORAL SCH ×3 (02:00→17:40)
[2019-10-21] MEDS ORDERED: Guaifenesin/DM 10ml syrup ORAL PRN (02:07)
[2019-10-21] MEDS ORDERED: Albuterol 90mcg Inhaler 8gm INH PRN (02:45)
--- NOTE | 2019-10-21 03:45 | NUR ---
NURSE NOTES: On admission pt temp was 102.3 and i gave him Tylenol 650 mg. The temp went down to 101.3, I applied ice pack . Will contact the doctor in the morning
--- NOTE | 2019-10-21 03:59 | Progress Note ---
DATE: 10/20/2019 HISTORY OF PRESENT ILLNESS: This 68-year-old male came to the hospital for rule out COVID and has acute COPD and possible pneumonia. The patient is currently doing okay and generalized weakness. The patient does have COVID positive. PHYSICAL EXAMINATION: VITAL SIGNS: Stable. CHEST: Bilateral few crackles. CARDIOVASCULAR: Regular rhythm. No gallop. No murmur. ABDOMEN: Soft. Positive bowel sounds and nontender. EXTREMITIES: CCE. NEUROLOGICAL: The patient is in generalized weakness. LABORATORY AND DIAGNOSTIC DATA: The patient's was low at 2.8. ASSESSMENT AND PLAN: 1. COVID pneumonia. 2. COPD. 3. Hypokalemia. Replace the potassium. Continue antibiotic. Continue bronchodilator treatments. Pulmonary is on consult. Fritz Roberts M.D. DR: Nelli JOB#: [id number] CC:
--- NOTE | 2019-10-21 07:20 | NUR ---
HAND-OFF: Report given to Capri fiore LVN. Endorsed to collect Ua and informed the pt he is fall risk
[2019-10-21 07:32] LABS: ANION GAP 8 mmol/L (5-15); BLOOD UREA NITROGEN 8 mg/dL (7-18); CALCIUM 8.7 MG/DL (8.5-10.1); CARBON DIOXIDE 27 MMOL/L (21-32); CHLORIDE 103 MMOL/L (98-107); POTASSIUM 2.9 MMOL/L (3.5-5.1); SODIUM 138 MMOL/L (136-145)
--- NOTE | 2019-10-21 07:40 | NUR ---
NURSE NOTES: RECEIVED REPORT FROM NAA MONTGOMERY. PATIENT AWAKE, ALERT AND ORIENTED X2. VERBALLY RESPONSIVE AND ABLE TO MAKE NEEDS KNOWN. NO COMPLAINTS OF PAIN OR DISCOMFORT AT THIS TIME. ON O2 2L VIA NC. INSTRUCTED NOT TO REMOVE. BREATHING IS EVEN AND UNLABORED ON ROOM AIR, NO S/SX OF DISTRESS. SANTA CATHETER DRAINING WELL TO GRAVITY. IV SITE ON RIGHT HAND ASYMPTOMATIC, PATENT AND INTACT WITH 1/2 NS RUNNING AT 75 ML/HR. FALL AND ASPIRATION PRECAUTIONS IMPLEMENTED. ON CONTACT AND DROPLET ISOLATION FOR CV-19. BED LOCKED AND IN LOWEST POSITION WITH SIDERAILS UP X 3. CALL LIGHT WITHIN REACH. WILL CONTINUE TO MONITOR.
--- NOTE | 2019-10-21 08:59 | Pulmonology Progress Note ---
Assessment/Plan Assessment/Plan IMPRESSION: 1. Rule out pneumonia. 2. Leukocytosis. 3. prison resident. 4. Hypertension. DISCUSSION: Admitted to the hospital. Continue home medications. Empiric broad-spectrum antibiotics to be given consisting of Rocephin and azithromycin. Continue oxygen and pulmonary hygiene. I will follow. Claudio Aguilar M.D. Subjective ROS Limited/Unobtainable: Yes Interval Events: None new Constitutional: Reports: no symptoms HEENT: Repors: no symptoms Respiratory: Reports: no symptoms Cardiovascular: Reports: no symptoms Gastrointestinal/Abdominal: Reports: no symptoms Genitourinary: Reports: no symptoms Allergies: Coded Allergies: No Known Allergies (Unverified , 10/17/19) Objective Last 24 Hour Vital Signs Date Time Temp Pulse Resp B/P (MAP) Pulse Ox O2 Delivery O2 Flow Rate FiO2 10/21/19 04:00 101.3 83 22 103/64 (77) 96 10/21/19 02:45 101.3 10/21/19 02:00 102.3 107 24 102/65 (77) 97 10/21/19 02:00 102/65 10/21/19 00:00 91 10/21/19 00:00 97.7 80 16 130/65 (86) 96 10/20/19 21:00 Nasal Cannula 2.0 10/20/19 21:00 98.5 89 18 120/94 (103) 96 10/20/19 20:00 117 10/20/19 17:08 137/68 10/20/19 16:39 117 10/20/19 16:00 99.3 96 20 137/68 (91) 94 10/20/19 14:00 100.5 10/20/19 12:00 88 10/20/19 12:00 101.3 110 20 119/69 (86) 97 10/20/19 10:00 96/59 10/20/19 09:00 108 96/59 10/20/19 09:00 Nasal Cannula 2.0 Intake and Output 10/20/19 10/21/19 18:59 06:59 Intake Total 1625 ml 1025 ml Output Total 750 ml 250 ml Balance 875 ml 775 ml Intake Oral 800 ml 650 ml IV Total 825 ml 375 ml Output Urine Total 750 ml 250 ml # Voids 2 # Bowel Movements 2 General Appearance: no acute distress HEENT: normocephalic Respiratory/Chest: chest wall non-tender, lungs clear Cardiovascular: normal peripheral pulses, normal rate Abdomen: normal bowel sounds Microbiology Date/Time Source Procedure Growth Status 10/18/19 12:53 Rectum VRE Culture - Final NO VANCOMYCIN RESISTANT ENTEROCOCCUS ... Complete Laboratory Tests 10/20/19 11:20: White Blood Count 15.7H, Red Blood Count 5.14, Hemoglobin 12.0L, Hematocrit 37.0L, Mean Corpuscular Volume 72L, Mean Corpuscular Hemoglobin 23.4L, Mean Corpuscular Hemoglobin Concent 32.5, Red Cell Distribution Width 16.3H, Platelet Count 284, Mean Platelet Volume 4.3L, Neutrophils (%) (Auto) , Lymphocytes (%) (Auto) , Monocytes (%) (Auto) , Eosinophils (%) (Auto) , Basophils (%) (Auto) , Differential Total Cells Counted 100, Neutrophils % ( Manual) 89H, Lymphocytes % (Manual) 7L, Monocytes % (Manual) 4, Eosinophils % ( Manual) 0, Basophils % (Manual) 0, Band Neutrophils 0, Platelet Estimate Adequate, Platelet Morphology Normal, Anisocytosis 1+, Sodium Level 139, Potassium Level 2.8L, Chloride Level 103, Carbon Dioxide Level 28, Anion Gap 8, Blood Urea Nitrogen 13, Creatinine 0.9, Estimat Glomerular Filtration Rate > 60 , Glucose Level 101, Calcium Level 8.7 10/21/19 05:00: Sodium Level 138, Potassium Level 2.9L, Chloride Level 103, Carbon Dioxide Level 27, Anion Gap 8, Blood Urea Nitrogen 8, Creatinine 1.0, Estimat Glomerular Filtration Rate > 60, Glucose Level 140H, Calcium Level 8.7 Current Medications Medications (Trade) Dose Ordered Sig/Leslie Route PRN Reason Start Time Stop Time Status Last Admin Dose Admin Acetaminophen (Tylenol) 325 mg Q6H PRN ORAL For Pain 10/21/19 02:03 11/16/19 02:02 Acetaminophen (Tylenol) 650 mg Q6H PRN ORAL Temp >100.5 10/21/19 02:05 11/17/19 02:04 10/21/19 02:15 Acetaminophen/ Hydrocodone Bitart ([place] 10/325) 1 tab Q4H PRN ORAL Pain Scale (6-10) 10/21/19 02:00 10/25/19 01:59 Albuterol Sulfate (Proventil MDI) 1 puff Q4H PRN INH Shortness of Breath 10/21/19 02:45 01/15/20 22:44 Amlodipine Besylate (Norvasc) 10 mg DAILY ORAL 10/21/19 09:00 11/17/19 08:59 Aspirin (Ecotrin) 81 mg DAILY ORAL 10/21/19 09:00 12/02/19 08:59 Atorvastatin Calcium (Lipitor) 20 mg BEDTIME ORAL 10/21/19 21:00 01/16/20 20:59 Azithromycin 500 mg/Sodium Chloride 275 ml @ 275 mls/hr Q24HRS IV 10/21/19 23:00 10/22/19 22:59 Captopril (Capoten) 12.5 mg Q8H ORAL 10/21/19 02:00 11/17/19 09:59 Ceftriaxone Sodium 1 gm/ Sodium Chloride 55 ml @ 110 mls/hr Q24HRS IVPB 10/21/19 22:00 10/24/19 21:59 Guaifenesin/ Dextromethorphan (Robitussin DM Syrup) 10 ml Q4H PRN ORAL For Cough 10/21/19 02:07 01/18/20 02:06 Hydroxychloroquine Sulfate (Plaquenil) 200 mg Q12HR ORAL 10/21/19 09:00 10/24/19 21:01 Ondansetron HCl (Zofran) 4 mg Q6H PRN IVP Nausea & Vomiting 10/21/19 02:03 11/17/19 02:02 Sodium Chloride 1,000 ml @ 75 mls/hr [id number] IV 10/21/19 02:00 11/16/19 21:59 10/21/19 02:13 Claudio Aguilar MD October 21, 2019 08:59
[2019-10-21] MEDS: Aspirin EC 81mg tab ORAL SCH (09:04)
--- NOTE | 2019-10-21 12:09 | NUR ---
NURSE NOTES: sent urine sample to lab.
[2019-10-21 12:26] LABS: APPEARANCE,URINE SLIGHTLY CLOUDY; BILIRUBIN, URINE NEGATIVE (NEGATIVE); COLOR,URINE PALE YELLOW; GLUCOSE, URINE (UA) NEGATIVE (NEGATIVE); KETONES,URINE NEGATIVE (NEGATIVE); LEUKOCYTE ESTERASE ,URINE 2+ (NEGATIVE); NITRITE,URINE NEGATIVE (NEGATIVE); PH,URINE 6.5 (4.5-8.0); PROTEIN,URINE 2+ (NEGATIVE); UROBILINOGEN,URINE NORMAL MG/DL (0.0-1.0)
--- NOTE | 2019-10-21 17:48 | NUR ---
NURSE NOTES: cooling measure rendered and medicated with acetaminophen. will cont to monitor.
--- NOTE | 2019-10-21 19:21 | NUR ---
HAND-OFF: Report given to Joann.
--- NOTE | 2019-10-21 19:22 | NUR ---
NURSE NOTES: Receive a patient on the bed in a stable condition. Pt is A&o 3-4 , vitals are stable , pt is 2L oxygen NC , and no complain of pain. pt has 16F Azar catheter inserted In ER. pt has 20G iv on his R hand and 1/2 ns 75cc running . Bed in the lower position, locked, and alarm on. Call light within reach. We will keep monitoring him.
[2019-10-21] MEDS: Atorvastatin 20mg tab ORAL SCH (21:12)
[2019-10-21] MEDS: cefTRIAXone 1 GM in NS 55 ML IVPB SCH (21:13)
[2019-10-21] MEDS ORDERED: Azithromycin 500 MG in NS 275 ML IV SCH (23:00)
--- NOTE | 2019-10-21 23:15 | Progress Note ---
DATE: 10/21/2019 SUBJECTIVE: This is a 68-year-old male currently in bed, comfortable and has low-grade fever and ID consult was obtained. OBJECTIVE: VITAL SIGNS: Blood pressure 110/66, pulse 86, respiration is 20, and temperature 99.9. HEENT: Eyes are open. NECK: Supple. CHEST: Bilaterally decreased breath sounds. CARDIOVASCULAR: Regular rhythm. No gallop. No murmur. ABDOMEN: Soft. EXTREMITIES: CCE. NEUROLOGICAL: No focal deficit. ASSESSMENT AND PLAN: 1. COVID pneumonia. 2. Recurrent fever. Possible UTI, waiting for urine result. 3. Hypokalemia, replace the potassium. 4. We will currently continue current treatment. We will currently continue Zithromax, , continue Norvasc, continue hydroxychloroquine, bronchodilator, and captopril. ID and Pulmonary is on case. Fritz Roberts M.D. DR: Nelli JOB#: [id number] CC:
[2019-10-22] VITALS: BP 113/78
[2019-10-22] MEDS: Captopril 12.5mg tab ORAL SCH ×3 (02:00→17:53)
--- NOTE | 2019-10-22 02:04 | NUR ---
Pt O2 was 92% with 4L oxygen and he was hyperventilating RR 36. Called RT and they changed the NC to non-rebreather 15L. Current O2 sat is 98% and HR 106. We will keep monitoring him.
[2019-10-22 04:00] VITALS: BP 116/67
--- NOTE | 2019-10-22 04:00 | NUR ---
NURSE NOTES: pt is back to NC 2l and his O2 sat is 93-94% . Fever went down to 98.6 .
--- NOTE | 2019-10-22 07:13 | NUR ---
NURSE NOTES: Called pharmacy to obtain Albuterol inhaler for the patient, pharmacy notified the pt was issued inhaler on the 10/17 but no inhaler was transferred from tele with the pt. RN went to tele for the inhaler but no inhaler found.
--- NOTE | 2019-10-22 07:55 | NUR ---
HAND-OFF: Report given to Gaby charge nurse. Endorsed that patient is fall risk.
[2019-10-22 08:00] VITALS: BP 112/70
[2019-10-22] MEDS: Aspirin EC 81mg tab ORAL SCH (09:44)
[2019-10-22 12:00] VITALS: BP 96/57
--- NOTE | 2019-10-22 13:00 | NUR ---
HAND-OFF: Report given to ANA Soto.
--- NOTE | 2019-10-22 14:00 | NUR ---
NURSE NOTES: notified ID dr Shirley Portillo in person regarding T 102.9F axillar, HR 116, no new order received.
--- NOTE | 2019-10-22 14:26 | Infectious Diseases Prog Note ---
Assessment/Plan Assessment/Plan A 1. COVID 19 pneumonia 2. fever 3. hypertension 4. GERD P 1. continue ceftriaxone, azithromycin 2. Continue Hydroxychloroquine 3.continue isolation Subjective ROS Limited/Unobtainable: Yes Constitutional: Reports: fever Allergies: Coded Allergies: No Known Allergies (Unverified , 10/17/19) Objective Vital Signs Last 24 Hour Vital Signs Date Time Temp Pulse Resp B/P (MAP) Pulse Ox O2 Delivery O2 Flow Rate FiO2 10/22/19 09:45 112/70 10/22/19 09:00 Nasal Cannula 2.0 10/22/19 09:00 109 112/70 10/22/19 08:00 98.2 109 32 112/70 (84) 100 10/22/19 04:00 98.4 101 32 116/67 (83) 100 10/22/19 02:00 113/78 10/22/19 00:00 99.1 116 36 113/78 (90) 90 10/21/19 21:00 Nasal Cannula 2.0 10/21/19 20:00 97.9 96 24 106/66 (79) 94 10/21/19 18:50 106 18 92 Nasal Cannula 4.0 36 10/21/19 18:30 98.2 10/21/19 18:13 98.4 10/21/19 17:40 108/55 10/21/19 16:00 100.9 101 20 108/55 (72) 95 Height (Feet): 5 Height (Inches): 8.00 Weight (Pounds): 135 General Appearance: no acute distress HEENT: mucous membranes moist Respiratory/Chest: other - oxygen by nasal cannula Cardiovascular: tachycardia Abdomen: soft, non tender Extremities: no edema Neurologic/Psychiatric: other - sleeping Current Medications Medications (Trade) Dose Ordered Sig/Leslie Route PRN Reason Start Time Stop Time Status Last Admin Dose Admin Acetaminophen (Tylenol) 325 mg Q6H PRN ORAL For Pain 10/21/19 02:03 11/16/19 02:02 10/21/19 17:43 Acetaminophen (Tylenol) 650 mg Q6H PRN ORAL Temp >100.5 10/21/19 02:05 11/17/19 02:04 10/21/19 02:15 Acetaminophen/ Hydrocodone Bitart ([place] 10/325) 1 tab Q4H PRN ORAL Pain Scale (6-10) 10/21/19 02:00 10/25/19 01:59 Albuterol Sulfate (Proventil MDI) 1 puff Q4H PRN INH Shortness of Breath 10/21/19 02:45 01/15/20 22:44 Amlodipine Besylate (Norvasc) 10 mg DAILY ORAL 10/21/19 09:00 11/17/19 08:59 Aspirin (Ecotrin) 81 mg DAILY ORAL 10/21/19 09:00 12/02/19 08:59 10/22/19 09:44 Atorvastatin Calcium (Lipitor) 20 mg BEDTIME ORAL 10/21/19 21:00 01/16/20 20:59 10/21/19 21:12 Azithromycin 500 mg/Sodium Chloride 275 ml @ 275 mls/hr Q24HRS IV 10/21/19 23:00 10/22/19 22:59 10/21/19 23:00 Captopril (Capoten) 12.5 mg Q8H ORAL 10/21/19 02:00 11/17/19 09:59 10/22/19 09:45 Ceftriaxone Sodium 1 gm/ Sodium Chloride 55 ml @ 110 mls/hr Q24HRS IVPB 10/21/19 22:00 10/24/19 21:59 10/21/19 21:13 Guaifenesin/ Dextromethorphan (Robitussin DM Syrup) 10 ml Q4H PRN ORAL For Cough 10/21/19 02:07 01/18/20 02:06 Hydroxychloroquine Sulfate (Plaquenil) 200 mg Q12HR ORAL 10/21/19 09:00 10/24/19 21:01 10/22/19 09:55 Ondansetron HCl (Zofran) 4 mg Q6H PRN IVP Nausea & Vomiting 10/21/19 02:03 11/17/19 02:02 Potassium Chloride (K-Dur) 40 meq TWICE A DAY ORAL 10/21/19 11:45 01/19/20 11:44 10/22/19 09:45 Sodium Chloride 1,000 ml @ 75 mls/hr [id number] IV 10/21/19 02:00 11/16/19 21:59 10/22/19 09:46 Octavio Portillo MD October 22, 2019 14:26
[2019-10-22 16:00] VITALS: BP 96/59
--- NOTE | 2019-10-22 17:19 | Pulmonology Progress Note ---
Assessment/Plan Assessment/Plan IMPRESSION: 1. Rule out pneumonia. 2. Leukocytosis. 3. [facility] resident. 4. Hypertension. 5. Hypoxemia; currently on 2-4L/Min O2 DISCUSSION: Continue home medications. Continue broad-spectrum antibiotics Continue oxygen and pulmonary hygiene. I will follow. Claudio Aguilar M.D. Subjective ROS Limited/Unobtainable: Yes Interval Events: None new Constitutional: Reports: fever HEENT: Repors: no symptoms Respiratory: Reports: no symptoms Cardiovascular: Reports: no symptoms Gastrointestinal/Abdominal: Reports: no symptoms Genitourinary: Reports: no symptoms Allergies: Coded Allergies: No Known Allergies (Unverified , 10/17/19) Objective Last 24 Hour Vital Signs Date Time Temp Pulse Resp B/P (MAP) Pulse Ox O2 Delivery O2 Flow Rate FiO2 10/22/19 12:00 102.9 116 28 96/57 (70) 97 10/22/19 09:45 112/70 10/22/19 09:00 Nasal Cannula 2.0 10/22/19 09:00 109 112/70 10/22/19 08:00 98.2 109 32 112/70 (84) 100 10/22/19 04:00 98.4 101 32 116/67 (83) 100 10/22/19 02:00 113/78 10/22/19 00:00 99.1 116 36 113/78 (90) 90 10/21/19 21:00 Nasal Cannula 2.0 10/21/19 20:00 97.9 96 24 106/66 (79) 94 10/21/19 18:50 106 18 92 Nasal Cannula 4.0 36 10/21/19 18:30 98.2 10/21/19 18:13 98.4 10/21/19 17:40 108/55 Intake and Output 10/21/19 10/22/19 19:00 07:00 Intake Total 1700 ml 1440 ml Output Total 2400 ml Balance 1700 ml -960 ml Intake Oral 800 ml IV Total 900 ml 1080 ml Other 360 ml Output Urine Total 2400 ml # Bowel Movements 1 General Appearance: no acute distress HEENT: mucous membranes moist Respiratory/Chest: chest wall non-tender, lungs clear Cardiovascular: normal peripheral pulses, normal rate Abdomen: soft, non tender Extremities: no edema Neurologic/Psychiatric: other - sleeping Current Medications Medications (Trade) Dose Ordered Sig/Leslie Route PRN Reason Start Time Stop Time Status Last Admin Dose Admin Acetaminophen (Tylenol) 325 mg Q6H PRN ORAL For Pain 10/21/19 02:03 11/16/19 02:02 10/21/19 17:43 Acetaminophen (Tylenol) 650 mg Q6H PRN ORAL Temp >100.5 10/21/19 02:05 11/17/19 02:04 10/21/19 02:15 Acetaminophen/ Hydrocodone Bitart ([place] 10/325) 1 tab Q4H PRN ORAL Pain Scale (6-10) 10/21/19 02:00 10/25/19 01:59 Albuterol Sulfate (Proventil MDI) 1 puff Q4H PRN INH Shortness of Breath 10/21/19 02:45 01/15/20 22:44 Amlodipine Besylate (Norvasc) 10 mg DAILY ORAL 10/21/19 09:00 11/17/19 08:59 Aspirin (Ecotrin) 81 mg DAILY ORAL 10/21/19 09:00 12/02/19 08:59 10/22/19 09:44 Atorvastatin Calcium (Lipitor) 20 mg BEDTIME ORAL 10/21/19 21:00 01/16/20 20:59 10/21/19 21:12 Azithromycin 500 mg/Sodium Chloride 275 ml @ 275 mls/hr Q24HRS IV 10/21/19 23:00 10/22/19 22:59 10/21/19 23:00 Captopril (Capoten) 12.5 mg Q8H ORAL 10/21/19 02:00 11/17/19 09:59 10/22/19 09:45 Ceftriaxone Sodium 1 gm/ Sodium Chloride 55 ml @ 110 mls/hr Q24HRS IVPB 10/21/19 22:00 10/24/19 21:59 10/21/19 21:13 Guaifenesin/ Dextromethorphan (Robitussin DM Syrup) 10 ml Q4H PRN ORAL For Cough 10/21/19 02:07 01/18/20 02:06 Hydroxychloroquine Sulfate (Plaquenil) 200 mg Q12HR ORAL 10/21/19 09:00 10/24/19 21:01 10/22/19 09:55 Ondansetron HCl (Zofran) 4 mg Q6H PRN IVP Nausea & Vomiting 10/21/19 02:03 11/17/19 02:02 Potassium Chloride (K-Dur) 40 meq TWICE A DAY ORAL 10/21/19 11:45 01/19/20 11:44 10/22/19 17:07 Sodium Chloride 1,000 ml @ 75 mls/hr [id number] IV 10/21/19 02:00 11/16/19 21:59 10/22/19 09:46 Claudio Aguilar MD October 22, 2019 17:19
--- NOTE | 2019-10-22 19:34 | NUR ---
HAND-OFF: Report given to ANA Potter.
[2019-10-22 20:00] VITALS: BP 106/55
--- NOTE | 2019-10-22 20:15 | NUR ---
NURSE NOTES: Received patient awake in bed, tachypneic with shallow breaths, 02 sat 99% on nasal cannula 4L. IV access patent, running IVF maintenance at 75ml/hr. Bed low and locked, needs attended to at this time.
[2019-10-22] MEDS: Atorvastatin 20mg tab ORAL SCH (21:13)
[2019-10-22] MEDS: cefTRIAXone 1 GM in NS 55 ML IVPB SCH (21:14)
[2019-10-23] VITALS: BP 106/60
--- NOTE | 2019-10-23 01:45 | Progress Note ---
DATE: 10/22/2019 SUBJECTIVE: This is an elderly male, came to the emergency room for COVID positive as well as fever and acute bronchitis and pneumonia. The patient is currently in the bed, in no distress. He is looking fine. His blood cultures and urine cultures are positive. PHYSICAL EXAMINATION: VITAL SIGNS: Stable. CHEST: Bilateral decreased breath sounds. CARDIOVASCULAR: Regular rhythm. No gallop. No murmur. ABDOMEN: Bowel soft. EXTREMITIES: CCE. ASSESSMENT: 1. COVID positive. 2. UTI. 3. Dehydration. 4. Acute bronchitis. 5. Dementia. 6. Failure to thrive. 7. Currently no nausea, vomiting due to Zofran. 8. Continue IV antibiotics. 9. Continue bronchodilator treatments. 10. Continue isolation. ID is on consult. Fritz Roberts M.D. DR: MARY LOU JOB#: [id number] CC:
[2019-10-23] MEDS: Captopril 12.5mg tab ORAL SCH ×3 (01:52→18:00)
[2019-10-23 04:00] VITALS: BP 110/66
--- NOTE | 2019-10-23 07:03 | NUR ---
HAND-OFF: Report given to ANA Cage.
--- NOTE | 2019-10-23 07:50 | NUR ---
NURSE NOTES: Received patient awake in bed, accepting breakfast. Patient is tachypneic with shallow breathing, on nasal cannula 4L/min. Nasal cannula was off patient so nurse put it in place but patient removed it again saying: "I can't eat with that on". Nurse told patient he needs the oxygen for his breathing, patient still was adamant he didn't want to wear nasal cannula at breakfast. RFA IV access patent, receives IVF. Bed at the lowest position possible, call light within easy reach, siderails up x3. Will continue to monitor patient and follow up with the plan of care.
[2019-10-23 08:00] VITALS: BP 108/62
[2019-10-23] MEDS: Aspirin EC 81mg tab ORAL SCH (09:25)
--- NOTE | 2019-10-23 11:23 | Infectious Diseases Prog Note ---
Assessment/Plan Assessment/Plan antibiotics : ceftriaxone, hydroxychloroquine A 1. COVID 19 pneumonia 2. fever 3. hypertension 4. GERD P 1. continue ceftriaxone 2. continue hydroxychloroquine 1 more day 3. will follow up cultures 3. continue isolation Subjective ROS Limited/Unobtainable: Yes Allergies: Coded Allergies: No Known Allergies (Unverified , 10/17/19) Objective Vital Signs Last 24 Hour Vital Signs Date Time Temp Pulse Resp B/P (MAP) Pulse Ox O2 Delivery O2 Flow Rate FiO2 10/23/19 09:03 108/62 10/23/19 09:00 72 108/62 10/23/19 08:00 97.7 72 26 108/62 (77) 96 10/23/19 04:00 98.2 99 25 110/66 (81) 94 10/23/19 01:52 106/60 10/23/19 00:00 97.9 93 25 106/60 (75) 94 10/22/19 23:13 Nasal Cannula 4.0 10/22/19 20:04 96 18 95 Nasal Cannula 4.0 36 10/22/19 20:00 97.8 95 30 106/55 (72) 94 10/22/19 18:01 100.2 10/22/19 17:53 96/59 10/22/19 16:00 102.7 109 30 96/59 (71) 94 10/22/19 12:00 102.9 116 28 96/57 (70) 97 Height (Feet): 5 Height (Inches): 8.00 Weight (Pounds): 135 Microbiology Date/Time Source Procedure Growth Status 10/21/19 12:00 Indwelling Cath Urine Culture - Preliminary NO GROWTH Resulted Current Medications Medications (Trade) Dose Ordered Sig/Leslie Route PRN Reason Start Time Stop Time Status Last Admin Dose Admin Acetaminophen (Tylenol) 325 mg Q6H PRN ORAL For Pain 10/21/19 02:03 11/16/19 02:02 10/21/19 17:43 Acetaminophen (Tylenol) 650 mg Q6H PRN ORAL Temp >100.5 10/21/19 02:05 11/17/19 02:04 10/22/19 17:31 Acetaminophen/ Hydrocodone Bitart ([place] 10/325) 1 tab Q4H PRN ORAL Pain Scale (6-10) 10/21/19 02:00 5/6/20 01:59 Albuterol Sulfate (Proventil MDI) 1 puff Q4H PRN INH Shortness of Breath 10/21/19 02:45 01/15/20 22:44 Amlodipine Besylate (Norvasc) 10 mg DAILY ORAL 10/21/19 09:00 11/17/19 08:59 Aspirin (Ecotrin) 81 mg DAILY ORAL 10/21/19 09:00 12/02/19 08:59 10/23/19 09:25 Atorvastatin Calcium (Lipitor) 20 mg BEDTIME ORAL 10/21/19 21:00 01/16/20 20:59 10/22/19 21:13 Captopril (Capoten) 12.5 mg Q8H ORAL 10/21/19 02:00 11/17/19 09:59 10/23/19 01:52 Ceftriaxone Sodium 1 gm/ Sodium Chloride 55 ml @ 110 mls/hr Q24HRS IVPB 10/21/19 22:00 10/24/19 21:59 10/22/19 21:14 Guaifenesin/ Dextromethorphan (Robitussin DM Syrup) 10 ml Q4H PRN ORAL For Cough 10/21/19 02:07 01/18/20 02:06 10/23/19 09:29 Hydroxychloroquine Sulfate (Plaquenil) 200 mg Q12HR ORAL 10/21/19 09:00 10/24/19 21:01 10/23/19 09:25 Ondansetron HCl (Zofran) 4 mg Q6H PRN IVP Nausea & Vomiting 10/21/19 02:03 11/17/19 02:02 Potassium Chloride (K-Dur) 40 meq TWICE A DAY ORAL 10/21/19 11:45 01/19/20 11:44 10/23/19 09:25 Sodium Chloride 1,000 ml @ 75 mls/hr [id number] IV 10/21/19 02:00 11/16/19 21:59 10/23/19 01:00 Jone Foley MD October 23, 2019 11:23
--- NOTE | 2019-10-23 11:23 | NUR ---
*-* INSURANCE *-* UPDATED AVAILABLE CLINICALS HAVE BEEN FAXED TO: BRUCE Oliva ref# pending ph# [phone] fax# [phone] & [facility] ref# [id number] CM: Maryanne Mixon ext [phone] fax# [phone]
[2019-10-23 12:00] VITALS: BP 116/82
--- NOTE | 2019-10-23 12:03 | Pulmonology Progress Note ---
Assessment/Plan Assessment/Plan IMPRESSION: 1. Rule out pneumonia. 2. Leukocytosis. 3. intermediate resident. 4. Hypertension. 5. Hypoxemia; currently on 2-4L/Min O2 DISCUSSION: Continue home medications. Continue broad-spectrum antibiotics Continue oxygen and pulmonary hygiene. I will follow. Claudio Aguilar M.D. Subjective ROS Limited/Unobtainable: Yes Interval Events: None new Constitutional: Reports: fever HEENT: Repors: no symptoms Respiratory: Reports: no symptoms Cardiovascular: Reports: no symptoms Gastrointestinal/Abdominal: Reports: no symptoms Genitourinary: Reports: no symptoms Allergies: Coded Allergies: No Known Allergies (Unverified , 10/17/19) Objective Last 24 Hour Vital Signs Date Time Temp Pulse Resp B/P (MAP) Pulse Ox O2 Delivery O2 Flow Rate FiO2 10/23/19 09:03 108/62 10/23/19 09:00 72 108/62 10/23/19 09:00 Nasal Cannula 4.0 10/23/19 08:00 97.7 72 26 108/62 (77) 96 10/23/19 04:00 98.2 99 25 110/66 (81) 94 10/23/19 01:52 106/60 10/23/19 00:00 97.9 93 25 106/60 (75) 94 10/22/19 23:13 Nasal Cannula 4.0 10/22/19 20:04 96 18 95 Nasal Cannula 4.0 36 10/22/19 20:00 97.8 95 30 106/55 (72) 94 10/22/19 18:01 100.2 10/22/19 17:53 96/59 10/22/19 16:00 102.7 109 30 96/59 (71) 94 Intake and Output 10/22/19 10/23/19 19:00 07:00 Intake Total 480 ml Output Total 500 ml 800 ml Balance -20 ml -800 ml Intake Oral 240 ml Other 240 ml Output Urine Total 500 ml 800 ml General Appearance: no acute distress HEENT: mucous membranes moist Respiratory/Chest: chest wall non-tender, lungs clear Cardiovascular: normal peripheral pulses, normal rate Abdomen: soft, non tender Extremities: no edema Neurologic/Psychiatric: other - sleeping Microbiology Date/Time Source Procedure Growth Status 10/21/19 12:00 Indwelling Cath Urine Culture - Preliminary NO GROWTH Resulted Current Medications Medications (Trade) Dose Ordered Sig/Leslie Route PRN Reason Start Time Stop Time Status Last Admin Dose Admin Acetaminophen (Tylenol) 325 mg Q6H PRN ORAL For Pain 10/21/19 02:03 11/16/19 02:02 10/21/19 17:43 Acetaminophen (Tylenol) 650 mg Q6H PRN ORAL Temp >100.5 10/21/19 02:05 11/17/19 02:04 10/22/19 17:31 Acetaminophen/ Hydrocodone Bitart ([place] 10/325) 1 tab Q4H PRN ORAL Pain Scale (6-10) 10/21/19 02:00 10/25/19 01:59 Albuterol Sulfate (Proventil MDI) 1 puff Q4H PRN INH Shortness of Breath 10/21/19 02:45 01/15/20 22:44 Amlodipine Besylate (Norvasc) 10 mg DAILY ORAL 10/21/19 09:00 11/17/19 08:59 Aspirin (Ecotrin) 81 mg DAILY ORAL 10/21/19 09:00 12/02/19 08:59 10/23/19 09:25 Atorvastatin Calcium (Lipitor) 20 mg BEDTIME ORAL 10/21/19 21:00 01/16/20 20:59 10/22/19 21:13 Captopril (Capoten) 12.5 mg Q8H ORAL 10/21/19 02:00 11/17/19 09:59 10/23/19 01:52 Ceftriaxone Sodium 1 gm/ Sodium Chloride 55 ml @ 110 mls/hr Q24HRS IVPB 10/21/19 22:00 10/24/19 21:59 10/22/19 21:14 Guaifenesin/ Dextromethorphan (Robitussin DM Syrup) 10 ml Q4H PRN ORAL For Cough 10/21/19 02:07 01/18/20 02:06 10/23/19 09:29 Hydroxychloroquine Sulfate (Plaquenil) 200 mg Q12HR ORAL 10/21/19 09:00 10/24/19 21:01 10/23/19 09:25 Ondansetron HCl (Zofran) 4 mg Q6H PRN IVP Nausea & Vomiting 10/21/19 02:03 11/17/19 02:02 Potassium Chloride (K-Dur) 40 meq TWICE A DAY ORAL 10/21/19 11:45 01/19/20 11:44 10/23/19 09:25 Sodium Chloride 1,000 ml @ 75 mls/hr [id number] IV 10/21/19 02:00 11/16/19 21:59 10/23/19 01:00 Claudio Aguilar MD October 23, 2019 12:03
--- NOTE | 2019-10-23 12:54 | NUR ---
RD ASSESSMENT & RECOMMENDATIONS SEE CARE ACTIVITY FOR COMPLETE ASSESSMENT DAILY ESTIMATED NEEDS: Needs based on cardiac, suspected underweight 61.4kg 25-35 kcals/kg 0821-7815 total kcals 1-1.2 g protein/kg 61-74 g total protein 25-30 mL/kg 8948-5773 total fluid mLs NUTRITION DIAGNOSIS: Swallowing difficulty r/t h/o CVA, as evidenced by pt on ms ground diet. CURRENT DIET:Regular ms ground PO DIET RECOMMENDATIONS: Low Na diet/ texture per [employer]CHNICIAN ADDITIONAL RECOMMENDATIONS: 1) Maintain weekly calibrated bed scale wts 2) With continued variable intake, rec Ensure Enlive BID (350 kcal/ each) 3) Replete lytes as needed-> K 2.9, monitor daily
[2019-10-23 16:00] VITALS: BP 112/80
--- NOTE | 2019-10-23 17:18 | NUR ---
CASE MANAGEMENT:REVIEW SI;COVID-19 PNEUMONIA UTI. FTT. AC BRONCHITIS. DEHYDRATION 102.9 116 30 94% 4L NC IS;ROCEPHIN IV Q24 HRS K-DUR PO BID PLAQUENIL PO BID PROVENTIL ING Q4 HRS ROBITUSSIN DM PO Q4 HRS PRN IVF NS @ 75 ML/HR MED SURG STATUS DCP;FROM [facility]
--- NOTE | 2019-10-23 18:15 | Progress Note ---
DATE: 10/23/2019 SUBJECTIVE: This is a 68-year-old male. Currently comfortable in the bed, no distress. PHYSICAL EXAMINATION: VITAL SIGNS: Blood pressure is 108/62, pulse 72, no fever. HEENT: NAD. CHEST: Bilaterally clear. CARDIOVASCULAR: Regular rhythm. ABDOMEN: Soft. EXTREMITIES: CCE. NEUROLOGICAL: No focal deficit. ASSESSMENT: 1. Encephalopathy. 2. COVID positive. 3. Pneumonia. PLAN: 1. Continue Zithromax . 2. Continue KCl. 3. Bronchodilator treatments. 4. Discussed with Dr. Foley for discharge plan. Fritz Roberts M.D. DR: KYA JOB#: [id number] CC:
--- NOTE | 2019-10-23 19:34 | NUR ---
HAND-OFF: Report given to ANA Potter.
[2019-10-23 20:00] VITALS: BP 123/79
[2019-10-23] MEDS: Atorvastatin 20mg tab ORAL SCH (20:32)
[2019-10-24] VITALS: BP 123/77
--- NOTE | 2019-10-24 00:20 | NUR ---
NURSE NOTES: Patient observed taking nasal cannula off stating "I DONT NEED IT!" when asked to put it back on. Patient continuously taking it off after numerous attempts at RN putting nasal cannula back on patient. 02 sat 92-95% on room air.
[2019-10-24] MEDS: Captopril 12.5mg tab ORAL SCH ×3 (01:45→18:14)
--- NOTE | 2019-10-24 03:33 | NUR ---
NURSE NOTES: Stool sample sent to lab at 0230 for OB stool.
[2019-10-24 04:00] VITALS: BP 127/75
[2019-10-24 05:08] LABS: HEMATOCRIT 34.3 % (42.0-52.0); HEMOGLOBIN 11.4 G/DL (14.2-18.0); MEAN CORPUSCULAR VOLUME 72 FL (80-99); PLATELET COUNT 303 K/UL (150-450); RED CELL DISTRIBUTION WIDTH 16.5 % (11.6-14.8); WHITE BLOOD COUNT 15.7 K/UL (4.8-10.8)
[2019-10-24 05:20] LABS: ANION GAP 11 mmol/L (5-15); BLOOD UREA NITROGEN 8 mg/dL (7-18); CALCIUM 8.8 MG/DL (8.5-10.1); CARBON DIOXIDE 25 MMOL/L (21-32); CHLORIDE 100 MMOL/L (98-107); CREATININE 0.8 MG/DL (0.55-1.30); POTASSIUM 4.5 MMOL/L (3.5-5.1); SODIUM 136 MMOL/L (136-145)
--- NOTE | 2019-10-24 07:15 | NUR ---
HAND-OFF: Report given to ANA Carter.
--- NOTE | 2019-10-24 07:54 | NUR ---
NURSE NOTES: pt is in the bed awake. respiration is even and non-labored with O2 via NC. HOB elevated. no facial grimacing for pain and discomfort noted. no acute distress noted at this time. place call light within reach, will continue to monitor pt.
[2019-10-24 08:00] VITALS: BP 105/51
--- NOTE | 2019-10-24 11:02 | Infectious Diseases Prog Note ---
Assessment/Plan Assessment/Plan antibiotics : ceftriaxone, hydroxychloroquine A 1. COVID 19 pneumonia s/p hydroxychloroquine 2. fever resolved 3. hypertension 4. GERD 5. prolonged QT P 1. d/c ceftriaxone, hydroxychloroquine 2. will follow up cultures 3. continue isolation Subjective ROS Limited/Unobtainable: Yes Allergies: Coded Allergies: No Known Allergies (Unverified , 10/17/19) Objective Vital Signs Last 24 Hour Vital Signs Date Time Temp Pulse Resp B/P (MAP) Pulse Ox O2 Delivery O2 Flow Rate FiO2 10/24/19 09:55 109 105/51 10/24/19 09:54 105/51 10/24/19 09:00 Nasal Cannula 4.0 10/24/19 08:00 98.2 109 20 105/51 (69) 93 10/24/19 04:06 96 22 79 Nasal Cannula 4.0 36 10/24/19 04:00 98.2 93 25 127/75 (92) 96 10/24/19 01:45 123/77 10/24/19 00:00 98.6 101 30 123/77 (92) 95 10/23/19 22:31 Nasal Cannula 4.0 10/23/19 20:00 98.4 114 30 123/79 (94) 97 10/23/19 18:00 112/80 10/23/19 16:00 97.9 76 30 112/80 (91) 97 10/23/19 12:00 97.8 73 24 116/82 (93) 100 Height (Feet): 5 Height (Inches): 8.00 Weight (Pounds): 135 Microbiology Date/Time Source Procedure Growth Status 10/21/19 12:00 Indwelling Cath Urine Culture - Preliminary NO GROWTH AFTER 24 HOURS Resulted Laboratory Tests Test 10/24/19 04:00 White Blood Count 15.7 K/UL (4.8-10.8) H Red Blood Count 4.80 M/UL (4.70-6.10) Hemoglobin 11.4 G/DL (14.2-18.0) L Hematocrit 34.3 % (42.0-52.0) L Mean Corpuscular Volume 72 FL (80-99) L Mean Corpuscular Hemoglobin 23.7 PG (27.0-31.0) L Mean Corpuscular Hemoglobin Concent 33.1 G/DL (32.0-36.0) Red Cell Distribution Width 16.5 % (11.6-14.8) H Platelet Count 303 K/UL (150-450) Mean Platelet Volume 4.3 FL (6.5-10.1) L Neutrophils (%) (Auto) % (45.0-75.0) Lymphocytes (%) (Auto) % (20.0-45.0) Monocytes (%) (Auto) % (1.0-10.0) Eosinophils (%) (Auto) % (0.0-3.0) Basophils (%) (Auto) % (0.0-2.0) Sodium Level 136 MMOL/L (136-145) Potassium Level 4.5 MMOL/L (3.5-5.1) Chloride Level 100 MMOL/L (98-107) Carbon Dioxide Level 25 MMOL/L (21-32) Anion Gap 11 mmol/L (5-15) Blood Urea Nitrogen 8 mg/dL (7-18) Creatinine 0.8 MG/DL (0.55-1.30) Estimat Glomerular Filtration Rate > 60 mL/min (>60) Glucose Level 75 MG/DL (74-106) Calcium Level 8.8 MG/DL (8.5-10.1) Current Medications Medications (Trade) Dose Ordered Sig/Leslie Route PRN Reason Start Time Stop Time Status Last Admin Dose Admin Acetaminophen (Tylenol) 325 mg Q6H PRN ORAL For Pain 10/21/19 02:03 11/16/19 02:02 10/21/19 17:43 Acetaminophen (Tylenol) 650 mg Q6H PRN ORAL Temp >100.5 10/21/19 02:05 11/17/19 02:04 10/22/19 17:31 Acetaminophen/ Hydrocodone Bitart ([place] 10/325) 1 tab Q4H PRN ORAL Pain Scale (6-10) 10/21/19 02:00 10/25/19 01:59 Albuterol Sulfate (Proventil MDI) 1 puff Q4H PRN INH Shortness of Breath 10/21/19 02:45 01/15/20 22:44 Amlodipine Besylate (Norvasc) 10 mg DAILY ORAL 10/21/19 09:00 11/17/19 08:59 10/24/19 09:55 Atorvastatin Calcium (Lipitor) 20 mg BEDTIME ORAL 10/21/19 21:00 01/16/20 20:59 10/23/19 20:32 Captopril (Capoten) 12.5 mg Q8H ORAL 10/21/19 02:00 11/17/19 09:59 10/24/19 09:54 Guaifenesin/ Dextromethorphan (Robitussin DM Syrup) 10 ml Q4H PRN ORAL For Cough 10/21/19 02:07 01/18/20 02:06 10/23/19 09:29 Ondansetron HCl (Zofran) 4 mg Q6H PRN IVP Nausea & Vomiting 10/21/19 02:03 11/17/19 02:02 Potassium Chloride (K-Dur) 40 meq TWICE A DAY ORAL 10/21/19 11:45 01/19/20 11:44 10/24/19 09:56 Sodium Chloride 1,000 ml @ 75 mls/hr [id number] IV 10/21/19 02:00 11/16/19 21:59 10/23/19 16:19 Jone Foley MD October 24, 2019 11:02
--- NOTE | 2019-10-24 11:34 | NUR ---
*-* INSURANCE *-* UPDATED AVAILABLE CLINICALS HAVE BEEN FAXED TO: BRUCE Oliva ref# pending ph# [phone] fax# [phone] & [facility] ref# [id number] CM: Maryanne Mixon ext [phone] fax# [phone]
[2019-10-24 12:00] VITALS: BP 106/67
--- NOTE | 2019-10-24 14:38 | NUR ---
CASE MANAGEMENT:REVIEW SI;COVID-19 PNEUMONIA UTI. FTT. AC BRONCHITIS. 98.6 109 22 105/51 92% 4L NC WBC 15.7 IS;K-DUR PO BID NORVASC PO QD IVF NS @ 75 ML/HR CAPOTEN PO Q8 HRS PROVENTIL INH Q4 HRS PRN ROBITUSSIN DM PO Q4 HRS PRN MED SURG STATUS DCP;PATIENT IS FROM [facility]
[2019-10-24 16:00] VITALS: BP 136/91
--- NOTE | 2019-10-24 17:00 | Pulmonology Progress Note ---
Assessment/Plan Assessment/Plan IMPRESSION: 1. COVID 19 pneumonia. 2. Leukocytosis. 3. alf resident. 4. Hypertension. 5. Hypoxemia; currently on 2-4L/Min O2 DISCUSSION: Continue home medications. Continue broad-spectrum antibiotics Continue oxygen and pulmonary hygiene. I will follow. Claudio Aguilar M.D. Subjective ROS Limited/Unobtainable: Yes Interval Events: None new Constitutional: Reports: fever HEENT: Repors: no symptoms Respiratory: Reports: no symptoms Cardiovascular: Reports: no symptoms Gastrointestinal/Abdominal: Reports: no symptoms Genitourinary: Reports: no symptoms Allergies: Coded Allergies: No Known Allergies (Unverified , 10/17/19) Objective Last 24 Hour Vital Signs Date Time Temp Pulse Resp B/P (MAP) Pulse Ox O2 Delivery O2 Flow Rate FiO2 10/24/19 12:00 98.4 105 20 106/67 (80) 92 10/24/19 09:55 109 105/51 10/24/19 09:54 105/51 10/24/19 09:00 Nasal Cannula 4.0 10/24/19 08:00 98.2 109 20 105/51 (69) 93 10/24/19 04:06 96 22 79 Nasal Cannula 4.0 36 10/24/19 04:00 98.2 93 25 127/75 (92) 96 10/24/19 01:45 123/77 10/24/19 00:00 98.6 101 30 123/77 (92) 95 10/23/19 22:31 Nasal Cannula 4.0 10/23/19 20:00 98.4 114 30 123/79 (94) 97 10/23/19 18:00 112/80 Intake and Output 10/23/19 10/24/19 19:00 07:00 Intake Total 750 ml Output Total 2550 ml Balance 750 ml -2550 ml IV Total 750 ml Output Urine Total 2550 ml # Voids 2 General Appearance: no acute distress HEENT: mucous membranes moist Respiratory/Chest: chest wall non-tender, lungs clear Cardiovascular: normal peripheral pulses, normal rate Abdomen: soft, non tender Extremities: no edema Neurologic/Psychiatric: other - sleeping Laboratory Tests 10/24/19 04:00: White Blood Count 15.7H, Red Blood Count 4.80, Hemoglobin 11.4L, Hematocrit 34.3L, Mean Corpuscular Volume 72L, Mean Corpuscular Hemoglobin 23.7L, Mean Corpuscular Hemoglobin Concent 33.1, Red Cell Distribution Width 16.5H, Platelet Count 303, Mean Platelet Volume 4.3L, Neutrophils (%) (Auto) , Lymphocytes (%) (Auto) , Monocytes (%) (Auto) , Eosinophils (%) (Auto) , Basophils (%) (Auto) , Sodium Level 136, Potassium Level 4.5, Chloride Level 100 , Carbon Dioxide Level 25, Anion Gap 11, Blood Urea Nitrogen 8, Creatinine 0.8, Estimat Glomerular Filtration Rate > 60, Glucose Level 75, Calcium Level 8.8 Current Medications Medications (Trade) Dose Ordered Sig/Leslie Route PRN Reason Start Time Stop Time Status Last Admin Dose Admin Acetaminophen (Tylenol) 325 mg Q6H PRN ORAL For Pain 10/21/19 02:03 11/16/19 02:02 10/21/19 17:43 Acetaminophen (Tylenol) 650 mg Q6H PRN ORAL Temp >100.5 10/21/19 02:05 11/17/19 02:04 10/22/19 17:31 Acetaminophen/ Hydrocodone Bitart ([place] 10/325) 1 tab Q4H PRN ORAL Pain Scale (6-10) 10/21/19 02:00 10/25/19 01:59 Albuterol Sulfate (Proventil MDI) 1 puff Q4H PRN INH Shortness of Breath 10/21/19 02:45 01/15/20 22:44 Amlodipine Besylate (Norvasc) 10 mg DAILY ORAL 10/21/19 09:00 11/17/19 08:59 10/24/19 09:55 Atorvastatin Calcium (Lipitor) 20 mg BEDTIME ORAL 10/21/19 21:00 01/16/20 20:59 10/23/19 20:32 Captopril (Capoten) 12.5 mg Q8H ORAL 10/21/19 02:00 11/17/19 09:59 10/24/19 09:54 Guaifenesin/ Dextromethorphan (Robitussin DM Syrup) 10 ml Q4H PRN ORAL For Cough 10/21/19 02:07 01/18/20 02:06 10/23/19 09:29 Ondansetron HCl (Zofran) 4 mg Q6H PRN IVP Nausea & Vomiting 10/21/19 02:03 11/17/19 02:02 Potassium Chloride (K-Dur) 40 meq TWICE A DAY ORAL 10/21/19 11:45 01/19/20 11:44 10/24/19 09:56 Sodium Chloride 1,000 ml @ 75 mls/hr [id number] IV 10/21/19 02:00 11/16/19 21:59 10/23/19 16:19 Claudio Aguilar MD October 24, 2019 17:00
--- NOTE | 2019-10-24 19:09 | NUR ---
HAND-OFF: Report given to Abbey.
[2019-10-24 20:00] VITALS: BP 90/58
[2019-10-24] MEDS: Atorvastatin 20mg tab ORAL SCH (20:12)
--- NOTE | 2019-10-24 22:29 | Progress Note ---
DATE: 10/24/2019 SUBJECTIVE: This is a 68-year-old white male came to the emergency room for fever and sepsis. The patient was found to have COVID. He was admitted on isolation medical floor. The patient currently also has acute bronchitis and COPD, treated with IV steroids and bronchodilator treatments. The patient developing stage IV decubitus. Wound care and surgery consult was obtained. The patient is physically doing better. He is still weak and tired. We will monitor for nutrition. Breathing blackman, he has been improving. PHYSICAL EXAMINATION: VITAL SIGNS: Blood pressure is 130/70, pulse 74, respirations 18. HEENT: NAD. CHEST: Bilateral few crackles. CARDIOVASCULAR: Regular rhythm. No gallop. No murmur. ABDOMEN: Soft. Positive bowel sounds and nontender. EXTREMITIES: CCE. NEUROLOGICAL: Generalized weakness. GENITOURINARY: Deferred. Sacral decubitus stage IV. ASSESSMENT AND PLAN: 1. Sacral decubitus stage IV. 2. COVID positive. 3. Acute bronchitis. 4. COPD. 5. Severe malnutrition. The patient currently will continue in medical floor, wound care, air mattress. Continue dietary consult. Pulmonary consult. Continue bronchodilator treatment. Decrease steroids and monitor his progress. Fritz Roberts M.D. DR: Nelli JOB#: [id number] CC:
[2019-10-25] VITALS: BP 89/55
[2019-10-25] MEDS: Captopril 12.5mg tab ORAL SCH ×3 (01:05→17:51)
[2019-10-25 04:00] VITALS: BP 119/78
--- NOTE | 2019-10-25 07:18 | NUR ---
HAND-OFF: Report given to ANA [place].
--- NOTE | 2019-10-25 07:41 | NUR ---
NURSE NOTES: AM rounds made, pt in the bed awake, alert and verbally responsive . no SOB noted at this time with O2 via NC. HOB elevated. No coughing and fever noted. skin is warm and dry to to touch. Call light is within reach.
[2019-10-25 08:00] VITALS: BP 102/65
--- NOTE | 2019-10-25 11:03 | Infectious Diseases Prog Note ---
Assessment/Plan Assessment/Plan antibiotics : none A 1. COVID 19 pneumonia s/p hydroxychloroquine 2. fever resolved 3. hypertension 4. GERD 5. prolonged QT P 1. continue off antibiotics 2. will follow up cultures 3. continue isolation Subjective ROS Limited/Unobtainable: Yes Allergies: Coded Allergies: No Known Allergies (Unverified , 10/17/19) Objective Vital Signs Last 24 Hour Vital Signs Date Time Temp Pulse Resp B/P (MAP) Pulse Ox O2 Delivery O2 Flow Rate FiO2 10/25/19 09:33 102/65 10/25/19 09:00 Nasal Cannula 4.0 10/25/19 09:00 94 102/65 10/25/19 08:00 98.7 94 17 102/65 (77) 98 10/25/19 04:00 99.0 104 25 119/78 (92) 92 10/25/19 01:05 89/55 10/25/19 00:00 98.9 116 25 89/55 (66) 92 10/24/19 21:54 Nasal Cannula 4.0 10/24/19 20:00 98.9 109 25 90/58 (69) 92 10/24/19 18:14 136/91 10/24/19 16:00 97.5 115 20 136/91 (106) 92 10/24/19 12:00 98.4 105 20 106/67 (80) 92 Height (Feet): 5 Height (Inches): 8.00 Weight (Pounds): 131 Current Medications Medications (Trade) Dose Ordered Sig/Leslie Route PRN Reason Start Time Stop Time Status Last Admin Dose Admin Acetaminophen (Tylenol) 325 mg Q6H PRN ORAL For Pain 10/21/19 02:03 11/16/19 02:02 10/21/19 17:43 Acetaminophen (Tylenol) 650 mg Q6H PRN ORAL Temp >100.5 10/21/19 02:05 11/17/19 02:04 10/22/19 17:31 Albuterol Sulfate (Proventil MDI) 1 puff Q4H PRN INH Shortness of Breath 10/21/19 02:45 01/15/20 22:44 Amlodipine Besylate (Norvasc) 10 mg DAILY ORAL 10/21/19 09:00 11/17/19 08:59 10/24/19 09:55 Atorvastatin Calcium (Lipitor) 20 mg BEDTIME ORAL 10/21/19 21:00 01/16/20 20:59 10/24/19 20:12 Captopril (Capoten) 12.5 mg Q8H ORAL 10/21/19 02:00 11/17/19 09:59 10/24/19 18:14 Guaifenesin/ Dextromethorphan (Robitussin DM Syrup) 10 ml Q4H PRN ORAL For Cough 10/21/19 02:07 01/18/20 02:06 10/23/19 09:29 Ondansetron HCl (Zofran) 4 mg Q6H PRN IVP Nausea & Vomiting 10/21/19 02:03 11/17/19 02:02 Potassium Chloride (K-Dur) 40 meq TWICE A DAY ORAL 10/21/19 11:45 01/19/20 11:44 10/25/19 09:35 Sodium Chloride 1,000 ml @ 75 mls/hr [id number] IV 10/21/19 02:00 11/16/19 21:59 10/23/19 16:19 Jone Foley MD October 25, 2019 11:03
--- NOTE | 2019-10-25 11:19 | Pulmonology Progress Note ---
Assessment/Plan Assessment/Plan IMPRESSION: 1. COVID 19 pneumonia. 2. Leukocytosis. 3. long-term resident. 4. Hypertension. 5. Hypoxemia; currently on 2-4L/Min O2 DISCUSSION: Continue home medications. Continue broad-spectrum antibiotics Continue oxygen and pulmonary hygiene. I will follow. Claudio Aguilar M.D. Subjective ROS Limited/Unobtainable: Yes Interval Events: None new Constitutional: Reports: fever HEENT: Repors: no symptoms Respiratory: Reports: no symptoms Cardiovascular: Reports: no symptoms Gastrointestinal/Abdominal: Reports: no symptoms Genitourinary: Reports: no symptoms Allergies: Coded Allergies: No Known Allergies (Unverified , 10/17/19) Objective Last 24 Hour Vital Signs Date Time Temp Pulse Resp B/P (MAP) Pulse Ox O2 Delivery O2 Flow Rate FiO2 10/25/19 09:33 102/65 10/25/19 09:00 Nasal Cannula 4.0 10/25/19 09:00 94 102/65 10/25/19 08:00 98.7 94 17 102/65 (77) 98 10/25/19 04:00 99.0 104 25 119/78 (92) 92 10/25/19 01:05 89/55 10/25/19 00:00 98.9 116 25 89/55 (66) 92 10/24/19 21:54 Nasal Cannula 4.0 10/24/19 20:00 98.9 109 25 90/58 (69) 92 10/24/19 18:14 136/91 10/24/19 16:00 97.5 115 20 136/91 (106) 92 10/24/19 12:00 98.4 105 20 106/67 (80) 92 Intake and Output 10/24/19 10/25/19 19:00 07:00 Intake Total 518 ml 360 ml Output Total 375 ml 500 ml Balance 143 ml -140 ml Intake Oral 318 ml 360 ml Other 200 ml Output Urine Total 375 ml 500 ml # Voids 1 General Appearance: no acute distress HEENT: mucous membranes moist Respiratory/Chest: chest wall non-tender, lungs clear Cardiovascular: normal peripheral pulses, normal rate Abdomen: soft, non tender Extremities: no edema Neurologic/Psychiatric: other - sleeping Current Medications Medications (Trade) Dose Ordered Sig/Leslie Route PRN Reason Start Time Stop Time Status Last Admin Dose Admin Acetaminophen (Tylenol) 325 mg Q6H PRN ORAL For Pain 10/21/19 02:03 11/16/19 02:02 10/21/19 17:43 Acetaminophen (Tylenol) 650 mg Q6H PRN ORAL Temp >100.5 10/21/19 02:05 11/17/19 02:04 10/22/19 17:31 Albuterol Sulfate (Proventil MDI) 1 puff Q4H PRN INH Shortness of Breath 10/21/19 02:45 01/15/20 22:44 Amlodipine Besylate (Norvasc) 10 mg DAILY ORAL 10/21/19 09:00 11/17/19 08:59 10/24/19 09:55 Atorvastatin Calcium (Lipitor) 20 mg BEDTIME ORAL 10/21/19 21:00 01/16/20 20:59 10/24/19 20:12 Captopril (Capoten) 12.5 mg Q8H ORAL 10/21/19 02:00 11/17/19 09:59 10/24/19 18:14 Guaifenesin/ Dextromethorphan (Robitussin DM Syrup) 10 ml Q4H PRN ORAL For Cough 10/21/19 02:07 01/18/20 02:06 10/23/19 09:29 Ondansetron HCl (Zofran) 4 mg Q6H PRN IVP Nausea & Vomiting 10/21/19 02:03 11/17/19 02:02 Potassium Chloride (K-Dur) 40 meq TWICE A DAY ORAL 10/21/19 11:45 01/19/20 11:44 10/25/19 09:35 Sodium Chloride 1,000 ml @ 75 mls/hr [id number] IV 10/21/19 02:00 11/16/19 21:59 10/23/19 16:19 Claudio Aguilar MD October 25, 2019 11:19
[2019-10-25 12:00] VITALS: BP 100/62
--- NOTE | 2019-10-25 13:50 | NUR ---
*-* INSURANCE *-* UPDATED AVAILABLE CLINICALS HAVE BEEN FAXED TO: [facility] ref# pending ph# [phone] fax# [phone] & [facility] ref# [id number] CM: Maryanne Mixon ext [phone] fax# [phone]
[2019-10-25 16:00] VITALS: BP 102/87
--- NOTE | 2019-10-25 16:03 | NUR ---
CASE MANAGEMENT:REVIEW SI;COVID-19 PNEUMONIA UTI. FTT. AC BRONCHITIS. 99.0 116 25 89/55 92% 4L NC IS;K-DUR PO BID NORVASC PO QD PROVENTIL ING Q4 HRS PRN ROBITUSSIN DM PO Q4 HRS PRN IVF NS @ 75 ML/HR CAPTOPRIL PO Q8 HRS MED SURG STATUS DCP;FROM [facility]
--- NOTE | 2019-10-25 19:26 | NUR ---
HAND-OFF: Report given to Cathy.
[2019-10-25 20:00] VITALS: BP 105/66
--- NOTE | 2019-10-25 20:00 | NUR ---
NURSE NOTES: Received patient awake, confused, follows simple command, no SOB noted.
[2019-10-25] MEDS: Atorvastatin 20mg tab ORAL SCH (21:05)
--- NOTE | 2019-10-25 23:44 | Progress Note ---
DATE: 10/25/2019 SUBJECTIVE: This is a 69-year-old male who came with COVID positive, fever, sepsis, dehydration, poor appetite. He has recently developed sacral decubitus stage IV and Dr. general surgery also consulted. This patient also has poor p.o. intake. PHYSICAL EXAMINATION: VITAL SIGNS: Blood pressure is 102/65, pulse 94, temperature is 98.7. HEENT: Eyes are open. NECK: Supple. CHEST: Bilateral decreased breath sounds. CARDIOVASCULAR: Regular rhythm. ABDOMEN: Soft. EXTREMITIES: CCE. NEUROLOGICAL: Generalized weakness. LABORATORY DATA: White count from yesterday 15,000. His cultures are so far no growth. Coronavirus is positive. ASSESSMENT: 1. Sacral decubitus stage IV. Wound care, consider also surgery consult. 2. COVID positive. 3. Pneumonia. 4. COPD. PLAN: Continue the air mattress, dietary consult, and supportive treatment. Fritz Roberts M.D. DR: Prashanth JOB#: [id number] CC:
[2019-10-26] MEDS: Captopril 12.5mg tab ORAL SCH ×3 (01:49→17:42)
[2019-10-26 04:02] VITALS: BP 102/68
--- NOTE | 2019-10-26 07:03 | NUR ---
HAND-OFF: Report given to Raul Austin RN.
--- NOTE | 2019-10-26 07:26 | NUR ---
NURSE NOTES: AM report received, RN made rounds, pt is awake and alert in bed, no SOB noted with O2 via NC. HOB elevated. no acute distress noted at this time. place call light within reach.
[2019-10-26 08:00] VITALS: BP 103/68
--- NOTE | 2019-10-26 11:25 | Pulmonology Progress Note ---
Subjective ROS Limited/Unobtainable: Yes Interval Events: None new Constitutional: Reports: fever HEENT: Repors: no symptoms Respiratory: Reports: no symptoms Cardiovascular: Reports: no symptoms Gastrointestinal/Abdominal: Reports: no symptoms Genitourinary: Reports: no symptoms Allergies: Coded Allergies: No Known Allergies (Unverified , 10/17/19) Objective Last 24 Hour Vital Signs Date Time Temp Pulse Resp B/P (MAP) Pulse Ox O2 Delivery O2 Flow Rate FiO2 10/26/19 09:45 103/68 10/26/19 09:00 103 103/68 10/26/19 09:00 Nasal Cannula 4.0 10/26/19 08:00 97.9 103 20 103/68 (80) 90 10/26/19 04:02 97.8 88 102/68 (79) 10/26/19 01:49 105/66 10/25/19 20:12 Nasal Cannula 4.0 10/25/19 20:00 98.6 92 22 105/66 (79) 93 10/25/19 17:51 102/87 10/25/19 16:00 98.4 84 17 102/87 (92) 99 10/25/19 12:00 98.4 90 19 100/62 (75) 97 Intake and Output 10/25/19 10/26/19 19:00 07:00 Intake Total 1475 ml 1115 ml Output Total 1100 ml 500 ml Balance 375 ml 615 ml Intake Oral 300 ml 340 ml IV Total 975 ml 775 ml Other 200 ml Output Urine Total 1100 ml 500 ml # Bowel Movements 1 General Appearance: no acute distress HEENT: mucous membranes moist Respiratory/Chest: chest wall non-tender, lungs clear Cardiovascular: normal peripheral pulses, normal rate Abdomen: soft, non tender Extremities: no edema Neurologic/Psychiatric: other - sleeping Current Medications Medications (Trade) Dose Ordered Sig/Leslie Route PRN Reason Start Time Stop Time Status Last Admin Dose Admin Acetaminophen (Tylenol) 325 mg Q6H PRN ORAL For Pain 10/21/19 02:03 11/16/19 02:02 10/21/19 17:43 Acetaminophen (Tylenol) 650 mg Q6H PRN ORAL Temp >100.5 10/21/19 02:05 11/17/19 02:04 10/22/19 17:31 Albuterol Sulfate (Proventil MDI) 1 puff Q4H PRN INH Shortness of Breath 10/21/19 02:45 01/15/20 22:44 Amlodipine Besylate (Norvasc) 10 mg DAILY ORAL 10/21/19 09:00 11/17/19 08:59 10/24/19 09:55 Atorvastatin Calcium (Lipitor) 20 mg BEDTIME ORAL 10/21/19 21:00 01/16/20 20:59 10/25/19 21:05 Captopril (Capoten) 12.5 mg Q8H ORAL 10/21/19 02:00 11/17/19 09:59 10/24/19 18:14 Guaifenesin/ Dextromethorphan (Robitussin DM Syrup) 10 ml Q4H PRN ORAL For Cough 10/21/19 02:07 01/18/20 02:06 10/23/19 09:29 Ondansetron HCl (Zofran) 4 mg Q6H PRN IVP Nausea & Vomiting 10/21/19 02:03 11/17/19 02:02 Potassium Chloride (K-Dur) 40 meq TWICE A DAY ORAL 10/21/19 11:45 01/19/20 11:44 10/26/19 09:00 Sodium Chloride 1,000 ml @ 75 mls/hr [id number] IV 10/21/19 02:00 11/16/19 21:59 10/26/19 01:20 Assessment/Plan Assessment/Plan IMPRESSION: 1. COVID 19 pneumonia. 2. Leukocytosis. 3. retirement resident. 4. Hypertension. 5. Hypoxemia; currently on 2-4L/Min O2 DISCUSSION: Continue home medications. Continue broad-spectrum antibiotics Continue oxygen and pulmonary hygiene. I will follow. Claudio Aguilar M.D. Claudio Aguilar MD October 26, 2019 11:25
[2019-10-26 12:00] VITALS: BP 102/61
--- NOTE | 2019-10-26 12:50 | Infectious Diseases Prog Note ---
Assessment/Plan Assessment/Plan A 1. COVID 19 pneumonia 2. fever resolved 3. hypertension 4. GERD P 1. Observe off antibiotic 2. Repeat COVID test 3. Continue isolation Subjective ROS Limited/Unobtainable: Yes Constitutional: Denies: fever Allergies: Coded Allergies: No Known Allergies (Unverified , 10/17/19) Objective Vital Signs Last 24 Hour Vital Signs Date Time Temp Pulse Resp B/P (MAP) Pulse Ox O2 Delivery O2 Flow Rate FiO2 10/26/19 09:45 103/68 10/26/19 09:00 103 103/68 10/26/19 09:00 Nasal Cannula 4.0 10/26/19 08:00 97.9 103 20 103/68 (80) 90 10/26/19 04:02 97.8 88 102/68 (79) 10/26/19 01:49 105/66 10/25/19 20:12 Nasal Cannula 4.0 10/25/19 20:00 98.6 92 22 105/66 (79) 93 10/25/19 17:51 102/87 10/25/19 16:00 98.4 84 17 102/87 (92) 99 Height (Feet): 5 Height (Inches): 8.00 Weight (Pounds): 131 General Appearance: no acute distress HEENT: mucous membranes moist Cardiovascular: normal rate, tachycardia Abdomen: soft, non tender Extremities: no edema Neurologic/Psychiatric: alert, responsive Current Medications Medications (Trade) Dose Ordered Sig/Leslie Route PRN Reason Start Time Stop Time Status Last Admin Dose Admin Acetaminophen (Tylenol) 325 mg Q6H PRN ORAL For Pain 10/21/19 02:03 11/16/19 02:02 10/21/19 17:43 Acetaminophen (Tylenol) 650 mg Q6H PRN ORAL Temp >100.5 10/21/19 02:05 11/17/19 02:04 10/22/19 17:31 Albuterol Sulfate (Proventil MDI) 1 puff Q4H PRN INH Shortness of Breath 10/21/19 02:45 01/15/20 22:44 Amlodipine Besylate (Norvasc) 10 mg DAILY ORAL 10/21/19 09:00 11/17/19 08:59 10/24/19 09:55 Atorvastatin Calcium (Lipitor) 20 mg BEDTIME ORAL 10/21/19 21:00 01/16/20 20:59 10/25/19 21:05 Captopril (Capoten) 12.5 mg Q8H ORAL 10/21/19 02:00 11/17/19 09:59 10/24/19 18:14 Guaifenesin/ Dextromethorphan (Robitussin DM Syrup) 10 ml Q4H PRN ORAL For Cough 10/21/19 02:07 01/18/20 02:06 10/23/19 09:29 Ondansetron HCl (Zofran) 4 mg Q6H PRN IVP Nausea & Vomiting 10/21/19 02:03 11/17/19 02:02 Potassium Chloride (K-Dur) 40 meq TWICE A DAY ORAL 10/21/19 11:45 01/19/20 11:44 10/26/19 09:00 Sodium Chloride 1,000 ml @ 75 mls/hr [id number] IV 10/21/19 02:00 11/16/19 21:59 10/26/19 01:20 Octavio Portillo MD October 26, 2019 12:50
[2019-10-26 16:00] VITALS: BP 107/70
--- NOTE | 2019-10-26 16:02 | NUR ---
*-* INSURANCE *-* UPDATED AVAILABLE CLINICALS HAVE BEEN FAXED TO: [facility] Ol[facility] ref# pending ph# [phone] fax# [phone] & [facility] ref# [id number] CM: Maryanne Mixon ext [phone] fax# [phone]
--- NOTE | 2019-10-26 17:14 | NUR ---
CASE MANAGEMENT:REVIEW SI;COVID-19 PNEUMONIA STAGE IV DECUB. COPD. 98.6 111 20 103/68 90% 4L NC IS;K-DUR PO BID NORVASC PO QD PROVENTIL ING Q4 HRS PRN IVF NS @ 75 ML/HR MED SURG STATUS DCP;FROM [facility]
--- NOTE | 2019-10-26 19:04 | NUR ---
HAND-OFF: Report given to Cathy.
--- NOTE | 2019-10-26 19:22 | NUR ---
NURSE NOTES: Received patient awake, confused, no SOB, watching television. Bed lowered, alarm on, call light within reach.
[2019-10-26] MEDS: Atorvastatin 20mg tab ORAL SCH (20:23)
[2019-10-26 20:37] VITALS: BP 113/81
[2019-10-27] VITALS (8 sets, daily range): BP systolic 98–135; BP diastolic 49–71
[2019-10-27] MEDS: Captopril 12.5mg tab ORAL SCH ×3 (02:00→18:11)
--- NOTE | 2019-10-27 06:42 | NUR ---
NURSE NOTES: At 0440 AM, patient had episode of tachypnea, tachycardia and O2 sat of 62%. Rapid response called, patient placed on non-rebreather mask which increased O2 sat to 90%. Heart rate is still on the 120's. ABG done. Dr Roberts informed. Patient transferred to SDU at 0540 AM.
--- NOTE | 2019-10-27 06:43 | NUR ---
NURSE NOTES: Received patient from Sabra Crow RN. Patient is aaox2, verbal, lethargic, sob, vss, on director chemistry, with no acute distress. Patient is on a non rebreather at 15L saturating at 100%. Patient had no wounds and is in bed watching TV. IV site is right forearm 24g. Bed at its lowest position, call light in reach, bed locked, and x3 bed rails are up. Will continue to monitor.
--- NOTE | 2019-10-27 07:15 | NUR ---
HAND-OFF: Report given to Emma Lee RN.
--- NOTE | 2019-10-27 07:20 | NUR ---
NURSE NOTES: Report received from Howard Mcarthur RN.Pt asleep noted no resp distress on 100% NRB mask,no signs of pain or discomfort,S-Tach on the monitor,Azar cath draining yellow urine,skin warm and dry IV site to RFA intact ,SR up x2 ,call bel at bedside,HOB elevated,bed lock in lowest position,will continue with plans of care
--- NOTE | 2019-10-27 08:25 | NUR ---
CASE MANAGEMENT: REVIEW 10/27/2019 SI:SEPSIS. T 98.2 HR 109 RR 25 B/P 99/71 SATS 100% ON 15L/NRB LABS: WBC 15.7 ABGs PH 7.214 PCO2 32.7 HCO3 12.9 O2 SAT 90.1 BE -13.7 IS:NS @ 75 ML/HR KDUR PO BID LIPITOR PO QHS NORVASC PO QD CAPOTEN PO Q8H SDU PLAN OF CARE: RUBI RE-TEST 10/25
--- NOTE | 2019-10-27 09:00 | NUR ---
NURSE NOTES: Pt non compliant ,takes out NRB mask on and off,but put it back when prompted to put i on.
[2019-10-27] MEDS ORDERED: Albuterol 90mcg Inhaler 8gm INH PRN (09:15)
[2019-10-27] MEDS ORDERED: Guaifenesin/DM 10ml syrup ORAL PRN (09:15)
--- NOTE | 2019-10-27 09:22 | NUR ---
RD ASSESSMENT & RECOMMENDATIONS SEE CARE ACTIVITY FOR COMPLETE ASSESSMENT DAILY ESTIMATED NEEDS: Needs based on cardiac, suspected underweight 61.4kg 25-35 kcals/kg 0135-3273 total kcals 1-1.2 g protein/kg 61-74 g total protein 25-30 mL/kg 8154-5692 total fluid mLs NUTRITION DIAGNOSIS: Swallowing difficulty r/t h/o CVA, as evidenced by pt on ms ground diet. CURRENT DIET: Regular ms ground PO DIET RECOMMENDATIONS--->>> Low Na diet/ texture per [employer] ADDITIONAL RECOMMENDATIONS: 1) Maintain weekly calibrated bed scale wts 2) W/ continued variable intake, rec Ensure Enlive BID (350 kcal/ each) 3) Replete lytes as needed-> monitor daily 4) Now on NRB, monitor PO intake, need for possible non oral feeds 5) S/p floor txr-> rec to RECALIBRATE bed scale for accurate CBW
--- NOTE | 2019-10-27 10:42 | Infectious Diseases Prog Note ---
Assessment/Plan Assessment/Plan antibiotics : none A 1. COVID 19 pneumonia s/p hydroxychloroquine on 15 liters O2, saturation 100 percent 2. fever resolved 3. hypertension 4. GERD 5. prolonged QT P 1. continue off antibiotics 2. will follow up cultures 3. continue isolation Subjective ROS Limited/Unobtainable: Yes Allergies: Coded Allergies: No Known Allergies (Unverified , 10/17/19) Objective Vital Signs Last 24 Hour Vital Signs Date Time Temp Pulse Resp B/P (MAP) Pulse Ox O2 Delivery O2 Flow Rate FiO2 10/27/19 09:34 109 99/71 10/27/19 08:00 98.2 109 25 99/71 (80) 100 10/27/19 07:46 106 10/27/19 05:32 Non-Rebreather 15.0 10/27/19 05:00 98.1 83 32 135/49 (77) 100 10/27/19 04:40 118 56 62 10/27/19 04:00 97.0 113 48 110/68 (82) 68 10/27/19 02:00 106/65 10/27/19 00:05 98.8 96 28 106/65 (79) 92 10/26/19 20:37 100.5 84 26 113/81 (92) 95 10/26/19 20:07 Nasal Cannula 4.0 10/26/19 17:42 107/70 10/26/19 16:00 98.4 93 20 107/70 (82) 94 10/26/19 12:00 97.9 111 20 102/61 (75) 93 Height (Feet): 5 Height (Inches): 8.00 Weight (Pounds): 131 Laboratory Tests Test 10/27/19 04:47 Arterial Blood pH 7.214 (7.350-7.450) Arterial Blood Partial Pressure CO2 32.7 mmHg (35.0-45.0) L Arterial Blood Partial Pressure O2 75.0 mmHg (75.0-100.0) Arterial Blood HCO3 12.9 mmol/L (22.0-26.0) *L Arterial Blood Oxygen Saturation 90.1 % (95-100) L Arterial Blood Base Excess -13.7 (-2-2) *L Eulalio Test Positive Current Medications Medications (Trade) Dose Ordered Sig/Leslie Route PRN Reason Start Time Stop Time Status Last Admin Dose Admin Acetaminophen (Tylenol) 325 mg Q6H PRN ORAL For Pain 10/27/19 09:15 11/16/19 09:14 Acetaminophen (Tylenol) 650 mg Q6H PRN ORAL Temp >100.5 10/27/19 09:15 11/17/19 09:14 Albuterol Sulfate (Proventil MDI) 1 puff Q4H PRN INH Shortness of Breath 10/27/19 09:15 01/15/20 09:14 Amlodipine Besylate (Norvasc) 10 mg DAILY ORAL 10/27/19 09:00 11/17/19 08:59 10/27/19 09:34 Atorvastatin Calcium (Lipitor) 20 mg BEDTIME ORAL 10/27/19 21:00 01/16/20 20:59 Captopril (Capoten) 12.5 mg Q8H ORAL 10/27/19 10:00 11/17/19 09:59 Guaifenesin/ Dextromethorphan (Robitussin DM Syrup) 10 ml Q4H PRN ORAL For Cough 10/27/19 09:15 01/18/20 09:14 Ondansetron HCl (Zofran) 4 mg Q6H PRN IVP Nausea & Vomiting 10/27/19 09:15 11/17/19 09:14 Potassium Chloride (K-Dur) 40 meq TWICE A DAY ORAL 10/27/19 09:00 01/19/20 11:44 Sodium Chloride 1,000 ml @ 75 mls/hr [id number] IV 10/27/19 09:00 11/16/19 21:59 10/27/19 09:39 Jone Foley MD October 27, 2019 10:42
--- NOTE | 2019-10-27 11:08 | NUR ---
INSURANCE PROGRESS NOTE AND PLAN OF CARE FAXED TO [facility] ref# pending ph# [phone] fax# [phone] & [facility] ref# [id number] CM: Maryanne Mixon Ph# [phone] ext [phone] fax# [phone]
--- NOTE | 2019-10-27 11:14 | Pulmonology Progress Note ---
Subjective ROS Limited/Unobtainable: Yes Interval Events: None new Constitutional: Denies: fever HEENT: Repors: no symptoms Respiratory: Reports: no symptoms Cardiovascular: Reports: no symptoms Gastrointestinal/Abdominal: Reports: no symptoms Genitourinary: Reports: no symptoms Allergies: Coded Allergies: No Known Allergies (Unverified , 10/17/19) Objective Last 24 Hour Vital Signs Date Time Temp Pulse Resp B/P (MAP) Pulse Ox O2 Delivery O2 Flow Rate FiO2 10/27/19 09:34 109 99/71 10/27/19 09:00 Nasal Cannula 4.0 10/27/19 08:00 10.0 100 10/27/19 08:00 Non-Rebreather 10.0 10/27/19 08:00 98.2 109 25 99/71 (80) 100 10/27/19 07:46 106 10/27/19 05:32 Non-Rebreather 15.0 10/27/19 05:00 98.1 83 32 135/49 (77) 100 10/27/19 04:40 118 56 62 10/27/19 04:00 97.0 113 48 110/68 (82) 68 10/27/19 02:00 106/65 10/27/19 00:05 98.8 96 28 106/65 (79) 92 10/26/19 20:37 100.5 84 26 113/81 (92) 95 10/26/19 20:07 Nasal Cannula 4.0 10/26/19 17:42 107/70 10/26/19 16:00 98.4 93 20 107/70 (82) 94 10/26/19 12:00 97.9 111 20 102/61 (75) 93 Intake and Output 10/26/19 10/27/19 19:00 07:00 Intake Total 1275 ml 225 ml Output Total 900 ml 400 ml Balance 375 ml -175 ml Intake Oral 600 ml IV Total 675 ml 225 ml Output Urine Total 900 ml 400 ml # Voids 2 1 General Appearance: no acute distress HEENT: mucous membranes moist Respiratory/Chest: chest wall non-tender, lungs clear Cardiovascular: normal peripheral pulses, normal rate Abdomen: soft, non tender Extremities: no edema Neurologic/Psychiatric: alert, responsive Laboratory Tests 10/27/19 04:47: Arterial Blood pH 7.214*L, Arterial Blood Partial Pressure CO2 32.7L, Arterial Blood Partial Pressure O2 75.0, Arterial Blood HCO3 12.9*L, Arterial Blood Oxygen Saturation 90.1L, Arterial Blood Base Excess -13.7*L, Eulalio Test Positive Current Medications Medications (Trade) Dose Ordered Sig/Leslie Route PRN Reason Start Time Stop Time Status Last Admin Dose Admin Acetaminophen (Tylenol) 325 mg Q6H PRN ORAL For Pain 10/27/19 09:15 11/16/19 09:14 Acetaminophen (Tylenol) 650 mg Q6H PRN ORAL Temp >100.5 10/27/19 09:15 11/17/19 09:14 Albuterol Sulfate (Proventil MDI) 1 puff Q4H PRN INH Shortness of Breath 10/27/19 09:15 01/15/20 09:14 Amlodipine Besylate (Norvasc) 10 mg DAILY ORAL 10/27/19 09:00 11/17/19 08:59 10/27/19 09:34 Atorvastatin Calcium (Lipitor) 20 mg BEDTIME ORAL 10/27/19 21:00 01/16/20 20:59 Captopril (Capoten) 12.5 mg Q8H ORAL 10/27/19 10:00 11/17/19 09:59 Guaifenesin/ Dextromethorphan (Robitussin DM Syrup) 10 ml Q4H PRN ORAL For Cough 10/27/19 09:15 01/18/20 09:14 Ondansetron HCl (Zofran) 4 mg Q6H PRN IVP Nausea & Vomiting 10/27/19 09:15 11/17/19 09:14 Potassium Chloride (K-Dur) 40 meq TWICE A DAY ORAL 10/27/19 09:00 01/19/20 11:44 Sodium Chloride 1,000 ml @ 75 mls/hr [id number] IV 10/27/19 09:00 11/16/19 21:59 10/27/19 09:39 Assessment/Plan Assessment/Plan IMPRESSION: 1. COVID 19 pneumonia. 2. Leukocytosis. 3. care home resident. 4. Hypertension. 5. Hypoxemia; now on 15L/NRBM DISCUSSION: Continue home medications. Continue broad-spectrum antibiotics Continue oxygen and pulmonary hygiene. I will follow. Lior Shultz Omar Syed MD October 27, 2019 11:14
--- NOTE | 2019-10-27 12:00 | NUR ---
NURSE NOTES: Pt awake,alert at this time able to eat per self with minimal assistance.
--- NOTE | 2019-10-27 18:00 | NUR ---
NURSE NOTES: pt stable,NRB mask change to 6L NC o2 sat 97%,no resp distress presented.
--- NOTE | 2019-10-27 19:21 | NUR ---
HAND-OFF: Report given to Shanika Lee RN.
--- NOTE | 2019-10-27 19:25 | NUR ---
NURSE NOTES: Report received from ANA Carter. Observed pt lying in the bed, awake, mildly agitated. ST on environmental monitoring specialist, HR of 118 noted. On 6L NC. R FA 24G, asymptomatic, 1/2 NS at 75cc/hr. Bed in the lowest position. Side rails up x3. Will continue to monitor.
[2019-10-27] MEDS: Atorvastatin 20mg tab ORAL SCH (20:51)
[2019-10-28] VITALS: BP 125/71
--- NOTE | 2019-10-28 01:20 | NUR ---
NURSE NOTES: Pt lying in the bed, mildly agitated but able to follow simple command. No acute distress noted at this time. Bed bath given. Oral care given. Will continue to monitor.
--- NOTE | 2019-10-28 02:14 | Progress Note ---
DATE: 10/27/2019 SUBJECTIVE: This is a 69-year-old male who has acute hypoxia step-down unit. Patient is currently awake, alert, more awake. Still has mild metabolic acidosis, but is improving. OBJECTIVE: VITAL SIGNS: Blood pressure is 130/70, pulse 74, no fever. HEENT: Eyes are open. NECK: Supple. CHEST: Bilateral few crackles. CARDIOVASCULAR: Regular rhythm. No gallop. No murmur. ABDOMEN: Soft. Positive bowel sounds. Nontender. EXTREMITIES: CCE. NEUROLOGICAL: Patient has generalized weakness. GENITOURINARY: Deferred. LABORATORY AND DIAGNOSTIC DATA: Patient has no labs today. ASSESSMENT: 1. Metabolic acidosis. 2. Hypoxia. 3. COVID positive. 4. Dementia. PLAN: 1. We will currently continue on high-flow oxygen. 2. Continue bronchodilator treatment. 3. We will discuss with the charge nurse. Fritz Roberts M.D. DR: KYA JOB#: [id number] CC:
[2019-10-28] MEDS: Captopril 12.5mg tab ORAL SCH ×3 (02:36→18:24)
[2019-10-28 04:00] VITALS: BP 123/69
[2019-10-28 06:36] LABS: ANION GAP 10 mmol/L (5-15); BLOOD UREA NITROGEN 14 mg/dL (7-18); CALCIUM 8.8 MG/DL (8.5-10.1); CARBON DIOXIDE 25 MMOL/L (21-32); CHLORIDE 101 MMOL/L (98-107); CREATININE 0.7 MG/DL (0.55-1.30); POTASSIUM 4.4 MMOL/L (3.5-5.1); SODIUM 136 MMOL/L (136-145)
--- NOTE | 2019-10-28 07:21 | NUR ---
HAND-OFF: Report given to ANA Mathew. No acute distress noted at this time.
--- NOTE | 2019-10-28 07:37 | NUR ---
NURSE NOTES: Received report from Shanika PEREZ.
[2019-10-28 08:00] VITALS: BP 108/65
--- NOTE | 2019-10-28 09:45 | NUR ---
NURSE NOTES: Pt. in bed, awake. Confused and forgetful. No sign of distress. On O2 at 6LPM via NC. Denies pain at present. IV at right FA #24g. in placed patent/intact running 1/2 NS at 75cc/hr. Bed in low position, locked. Bed alarm on. Call light within reach. Will cont. to monitor.
--- NOTE | 2019-10-28 11:09 | Infectious Diseases Prog Note ---
Assessment/Plan Assessment/Plan antibiotics : none A 1. COVID 19 pneumonia improving s/p hydroxychloroquine on 6 liters O2, saturation 96 percent 2. fever resolved 3. hypertension 4. GERD 5. prolonged QT P 1. continue off antibiotics 2. will follow up cultures 3. continue isolation Subjective ROS Limited/Unobtainable: Yes Allergies: Coded Allergies: No Known Allergies (Unverified , 10/17/19) Objective Vital Signs Last 24 Hour Vital Signs Date Time Temp Pulse Resp B/P (MAP) Pulse Ox O2 Delivery O2 Flow Rate FiO2 10/28/19 09:46 108/65 10/28/19 09:45 99 108/65 10/28/19 08:00 98.1 99 16 108/65 (79) 98 10/28/19 08:00 90 10/28/19 08:00 Nasal Cannula 6.0 10/28/19 08:00 6.0 10/28/19 04:00 Nasal Cannula 6.0 10/28/19 04:00 6.0 10/28/19 04:00 116 10/28/19 04:00 99.0 98 30 123/69 (87) 95 10/28/19 02:36 121/70 10/28/19 00:00 Nasal Cannula 6.0 10/28/19 00:00 80 10/28/19 00:00 97.8 98 30 125/71 (89) 99 10/28/19 00:00 6.0 10/27/19 21:00 Nasal Cannula 4.0 10/27/19 20:00 6.0 10/27/19 20:00 Nasal Cannula 6.0 10/27/19 20:00 108 10/27/19 20:00 98.2 100 24 106/63 (77) 100 10/27/19 18:11 100/60 10/27/19 16:00 98.2 100 20 100/60 (73) 100 10/27/19 16:00 Non-Rebreather 10.0 10/27/19 16:00 105 10/27/19 16:00 10.0 100 10/27/19 12:10 101 10/27/19 12:00 10.0 100 10/27/19 12:00 Non-Rebreather 10.0 10/27/19 11:37 97.8 104 25 98/66 (77) 98 10/27/19 11:37 98/66 Height (Feet): 5 Height (Inches): 8.00 Weight (Pounds): 131 Microbiology Date/Time Source Procedure Growth Status 10/26/19 15:30 Nasopharynx Coronavirus COVID-19 PCR ([facility]ARESH) - Final Complete Laboratory Tests Test 10/28/19 05:30 Sodium Level 136 MMOL/L (136-145) Potassium Level 4.4 MMOL/L (3.5-5.1) Chloride Level 101 MMOL/L (98-107) Carbon Dioxide Level 25 MMOL/L (21-32) Anion Gap 10 mmol/L (5-15) Blood Urea Nitrogen 14 mg/dL (7-18) Creatinine 0.7 MG/DL (0.55-1.30) Estimat Glomerular Filtration Rate > 60 mL/min (>60) Glucose Level 122 MG/DL (74-106) H Calcium Level 8.8 MG/DL (8.5-10.1) Current Medications Medications (Trade) Dose Ordered Sig/Leslie Route PRN Reason Start Time Stop Time Status Last Admin Dose Admin Acetaminophen (Tylenol) 325 mg Q6H PRN ORAL For Pain 10/27/19 09:15 11/16/19 09:14 Acetaminophen (Tylenol) 650 mg Q6H PRN ORAL Temp >100.5 10/27/19 09:15 11/17/19 09:14 Albuterol Sulfate (Proventil MDI) 1 puff Q4H PRN INH Shortness of Breath 10/27/19 09:15 01/15/20 09:14 Amlodipine Besylate (Norvasc) 10 mg DAILY ORAL 10/27/19 09:00 11/17/19 08:59 10/28/19 09:45 Atorvastatin Calcium (Lipitor) 20 mg BEDTIME ORAL 10/27/19 21:00 01/16/20 20:59 10/27/19 20:51 Captopril (Capoten) 12.5 mg Q8H ORAL 10/27/19 10:00 11/17/19 09:59 10/28/19 09:46 Guaifenesin/ Dextromethorphan (Robitussin DM Syrup) 10 ml Q4H PRN ORAL For Cough 10/27/19 09:15 01/18/20 09:14 Ondansetron HCl (Zofran) 4 mg Q6H PRN IVP Nausea & Vomiting 10/27/19 09:15 11/17/19 09:14 Potassium Chloride (K-Dur) 40 meq TWICE A DAY ORAL 10/27/19 09:00 01/19/20 11:44 10/28/19 09:45 Sodium Chloride 1,000 ml @ 75 mls/hr [id number] IV 10/27/19 09:00 11/16/19 21:59 10/27/19 20:51 Jone Foley MD October 28, 2019 11:09
[2019-10-28 12:00] VITALS: BP 96/51
--- NOTE | 2019-10-28 12:04 | Pulmonology Progress Note ---
Subjective ROS Limited/Unobtainable: Yes Interval Events: None new Constitutional: Denies: fever HEENT: Repors: no symptoms Respiratory: Reports: no symptoms Cardiovascular: Reports: no symptoms Gastrointestinal/Abdominal: Reports: no symptoms Genitourinary: Reports: no symptoms Allergies: Coded Allergies: No Known Allergies (Unverified , 10/17/19) Objective Last 24 Hour Vital Signs Date Time Temp Pulse Resp B/P (MAP) Pulse Ox O2 Delivery O2 Flow Rate FiO2 10/28/19 09:46 108/65 10/28/19 09:45 99 108/65 10/28/19 08:00 98.1 99 16 108/65 (79) 98 10/28/19 08:00 90 10/28/19 08:00 Nasal Cannula 6.0 10/28/19 08:00 6.0 10/28/19 04:00 Nasal Cannula 6.0 10/28/19 04:00 6.0 10/28/19 04:00 116 10/28/19 04:00 99.0 98 30 123/69 (87) 95 10/28/19 02:36 121/70 10/28/19 00:00 Nasal Cannula 6.0 10/28/19 00:00 80 10/28/19 00:00 97.8 98 30 125/71 (89) 99 10/28/19 00:00 6.0 10/27/19 21:00 Nasal Cannula 4.0 10/27/19 20:00 6.0 10/27/19 20:00 Nasal Cannula 6.0 10/27/19 20:00 108 10/27/19 20:00 98.2 100 24 106/63 (77) 100 10/27/19 18:11 100/60 10/27/19 16:00 98.2 100 20 100/60 (73) 100 10/27/19 16:00 Non-Rebreather 10.0 10/27/19 16:00 105 10/27/19 16:00 10.0 100 10/27/19 12:10 101 Intake and Output 10/27/19 10/28/19 19:00 07:00 Intake Total 1965 ml 925 ml Output Total 925 ml 1000 ml Balance 1040 ml -75 ml Intake Oral 1440 ml 100 ml IV Total 525 ml 825 ml Output Urine Total 925 ml 1000 ml General Appearance: no acute distress HEENT: mucous membranes moist Respiratory/Chest: chest wall non-tender, lungs clear Cardiovascular: normal peripheral pulses, normal rate Abdomen: soft, non tender Extremities: no edema Neurologic/Psychiatric: alert, responsive Microbiology Date/Time Source Procedure Growth Status 10/26/19 15:30 Nasopharynx Coronavirus COVID-19 PCR ([facility]ESH) - Final Complete Laboratory Tests 10/28/19 05:30: Sodium Level 136, Potassium Level 4.4, Chloride Level 101, Carbon Dioxide Level 25, Anion Gap 10, Blood Urea Nitrogen 14, Creatinine 0.7, Estimat Glomerular Filtration Rate > 60, Glucose Level 122H, Calcium Level 8.8 Current Medications Medications (Trade) Dose Ordered Sig/Leslie Route PRN Reason Start Time Stop Time Status Last Admin Dose Admin Acetaminophen (Tylenol) 325 mg Q6H PRN ORAL For Pain 10/27/19 09:15 11/16/19 09:14 Acetaminophen (Tylenol) 650 mg Q6H PRN ORAL Temp >100.5 10/27/19 09:15 11/17/19 09:14 Albuterol Sulfate (Proventil MDI) 1 puff Q4H PRN INH Shortness of Breath 10/27/19 09:15 01/15/20 09:14 Amlodipine Besylate (Norvasc) 10 mg DAILY ORAL 10/27/19 09:00 11/17/19 08:59 10/28/19 09:45 Atorvastatin Calcium (Lipitor) 20 mg BEDTIME ORAL 10/27/19 21:00 01/16/20 20:59 10/27/19 20:51 Captopril (Capoten) 12.5 mg Q8H ORAL 10/27/19 10:00 11/17/19 09:59 10/28/19 09:46 Guaifenesin/ Dextromethorphan (Robitussin DM Syrup) 10 ml Q4H PRN ORAL For Cough 10/27/19 09:15 01/18/20 09:14 Ondansetron HCl (Zofran) 4 mg Q6H PRN IVP Nausea & Vomiting 10/27/19 09:15 11/17/19 09:14 Potassium Chloride (K-Dur) 40 meq TWICE A DAY ORAL 10/27/19 09:00 01/19/20 11:44 5/9/20 09:45 Sodium Chloride 1,000 ml @ 75 mls/hr [id number] IV 10/27/19 09:00 11/16/19 21:59 10/27/19 20:51 Assessment/Plan Assessment/Plan IMPRESSION: 1. COVID 19 pneumonia. 2. Leukocytosis. 3. long term resident. 4. Hypertension. 5. Hypoxemia; now on 6L/min O2 DISCUSSION: Continue home medications. Continue broad-spectrum antibiotics Continue oxygen and pulmonary hygiene. I will follow. Lior Shultz Omar Syed MD October 28, 2019 12:04
[2019-10-28 16:00] VITALS: BP 120/77
--- NOTE | 2019-10-28 19:41 | NUR ---
HAND-OFF: Report given to Candido PEREZ. Pt. remain stable.
[2019-10-28 20:00] VITALS: BP 107/59
--- NOTE | 2019-10-28 20:00 | NUR ---
NURSE NOTES: Received report from ANA Mathew. Pt is resting on the bed and awake confused. On o2 6L via nasal cannula and SaO2 100% noted. Pt removed nasal cannula by himself. Remind Pt do not remove nasal cannula and explained benefit and risks. On Tele monitor with ST and HR: 108's. IV site leaking. Inserted new IV on Lt. Forearm. on running with 1/2NS@ 75cc/hr. changed position. Placed fall precaution. Will continue to monitor any change of condition.
[2019-10-28] MEDS: Atorvastatin 20mg tab ORAL SCH (21:27)
[2019-10-29] VITALS: BP 134/61
--- NOTE | 2019-10-29 01:30 | Progress Note ---
DATE: 10/28/2019 SUBJECTIVE: This is an elderly man, currently more awake, alert, slightly time to time, tolerating pureed diet. OBJECTIVE: VITAL SIGNS: Stable. CHEST: Bilateral few crackles. CARDIOVASCULAR: Regular rhythm. No gallop. No murmur. ABDOMEN: Soft. Positive bowel sounds. Nontender. EXTREMITIES: CCE. ASSESSMENT: 1. COVID . 2. Weakness. 3. Generalized weakness. 4. Dementia. 5. Failure to thrive. PLAN: 1. We will continue antibiotic. 2. Continue bronchodilator treatments. 3. Continue isolation. 4. Pulmonary and ID on consult. Fritz Roberts M.D. DR: JORDON JOB#: [id number] CC:
[2019-10-29] MEDS: Captopril 12.5mg tab ORAL SCH ×3 (02:32→17:12)
[2019-10-29 04:00] VITALS: BP 122/66
--- NOTE | 2019-10-29 07:24 | NUR ---
HAND-OFF: Report given to ANA Grant. Pt is resting on the bed and no sign of acute distress noted.
[2019-10-29 07:30] VITALS: BP 133/75
--- NOTE | 2019-10-29 07:30 | NUR ---
NURSE NOTES: Received report from ANA Rey. The patient is resting on the bed without acute distress or shortness of breath. The patient's bed in the lowest position, call light in reach, and fall and aspiration precaution reinforced. The patient is on 6L NC, and oxygen saturation within normal range. The patient has L FA 2G IV that is intact and patent and running IVF per order. The patient has Azar that is intact and draining by gravity. Will follow up the lab. Will continue plan of care.
--- NOTE | 2019-10-29 09:33 | Pulmonology Progress Note ---
Subjective ROS Limited/Unobtainable: Yes Interval Events: None new Constitutional: Denies: fever HEENT: Repors: no symptoms Respiratory: Reports: no symptoms Cardiovascular: Reports: no symptoms Gastrointestinal/Abdominal: Reports: no symptoms Genitourinary: Reports: no symptoms Allergies: Coded Allergies: No Known Allergies (Unverified , 10/17/19) Objective Last 24 Hour Vital Signs Date Time Temp Pulse Resp B/P (MAP) Pulse Ox O2 Delivery O2 Flow Rate FiO2 10/29/19 07:30 98.1 79 18 133/75 (94) 99 10/29/19 04:00 98.4 96 18 122/66 (84) 99 10/29/19 04:00 94 10/29/19 04:00 Nasal Cannula 6.0 10/29/19 04:00 6.0 10/29/19 02:32 130/60 10/29/19 00:00 109 10/29/19 00:00 6.0 10/29/19 00:00 97.7 107 18 134/61 (85) 100 10/29/19 00:00 Nasal Cannula 6.0 10/28/19 20:00 Nasal Cannula 6.0 10/28/19 20:00 97.7 108 18 107/59 (75) 100 10/28/19 20:00 6.0 10/28/19 19:26 120 10/28/19 18:24 120/77 10/28/19 16:11 96 10/28/19 16:00 99.1 101 18 120/77 (91) 98 10/28/19 16:00 Nasal Cannula 6.0 10/28/19 16:00 6.0 10/28/19 12:00 Nasal Cannula 6.0 10/28/19 12:00 98.4 99 18 96/51 (66) 99 10/28/19 12:00 101 10/28/19 12:00 6.0 10/28/19 09:46 108/65 10/28/19 09:45 99 108/65 Intake and Output 10/28/19 10/29/19 19:00 07:00 Intake Total 525 ml 1135 ml Output Total 1000 ml 900 ml Balance -475 ml 235 ml Intake Oral 450 ml 240 ml IV Total 75 ml 895 ml Output Urine Total 1000 ml 900 ml # Bowel Movements 2 2 General Appearance: no acute distress HEENT: mucous membranes moist Respiratory/Chest: chest wall non-tender, lungs clear Cardiovascular: normal peripheral pulses, normal rate Abdomen: soft, non tender Extremities: no edema Neurologic/Psychiatric: alert, responsive Microbiology Date/Time Source Procedure Growth Status 10/26/19 15:30 Nasopharynx Coronavirus COVID-19 PCR ([facility]) - Final Complete Current Medications Medications (Trade) Dose Ordered Sig/Leslie Route PRN Reason Start Time Stop Time Status Last Admin Dose Admin Acetaminophen (Tylenol) 325 mg Q6H PRN ORAL For Pain 10/27/19 09:15 11/16/19 09:14 Acetaminophen (Tylenol) 650 mg Q6H PRN ORAL Temp >100.5 10/27/19 09:15 11/17/19 09:14 Albuterol Sulfate (Proventil MDI) 1 puff Q4H PRN INH Shortness of Breath 10/27/19 09:15 01/15/20 09:14 Amlodipine Besylate (Norvasc) 10 mg DAILY ORAL 10/27/19 09:00 11/17/19 08:59 10/28/19 09:45 Atorvastatin Calcium (Lipitor) 20 mg BEDTIME ORAL 10/27/19 21:00 01/16/20 20:59 10/28/19 21:27 Captopril (Capoten) 12.5 mg Q8H ORAL 10/27/19 10:00 11/17/19 09:59 10/29/19 02:32 Guaifenesin/ Dextromethorphan (Robitussin DM Syrup) 10 ml Q4H PRN ORAL For Cough 10/27/19 09:15 01/18/20 09:14 Ondansetron HCl (Zofran) 4 mg Q6H PRN IVP Nausea & Vomiting 10/27/19 09:15 11/17/19 09:14 Potassium Chloride (K-Dur) 40 meq TWICE A DAY ORAL 10/27/19 09:00 01/19/20 11:44 10/28/19 18:24 Sodium Chloride 1,000 ml @ 75 mls/hr [id number] IV 10/27/19 09:00 11/16/19 21:59 10/29/19 00:36 Assessment/Plan Assessment/Plan IMPRESSION: 1. COVID 19 pneumonia. 2. Leukocytosis. 3. [facility] resident. 4. Hypertension. 5. Hypoxemia; now on 6L/min O2 DISCUSSION: Continue home medications. Continue broad-spectrum antibiotics Continue oxygen and pulmonary hygiene. I will follow. Transfer to tele Lior Shultz Omar Syed MD October 29, 2019 09:33
[2019-10-29 10:03] LABS: BASOPHILS % (AUTO) 2.5 % (0.0-2.0); EOSINOPHILS % (AUTO) 0.3 % (0.0-3.0); HEMATOCRIT 30.9 % (42.0-52.0); HEMOGLOBIN 10.2 G/DL (14.2-18.0); LYMPHOCYTES % (AUTO) 13.2 % (20.0-45.0); MEAN CORPUSCULAR VOLUME 72 FL (80-99); MONOCYTES % (AUTO) 6.5 % (1.0-10.0); NEUTROPHILS % (AUTO) 77.5 % (45.0-75.0); PLATELET COUNT 726 K/UL (150-450); RED BLOOD COUNT 4.33 M/UL (4.70-6.10); RED CELL DISTRIBUTION WIDTH 16.5 % (11.6-14.8); WHITE BLOOD COUNT 13.4 K/UL (4.8-10.8)
--- NOTE | 2019-10-29 10:30 | NUR ---
NURSE NOTES: Dr. Aguilar at the bedside assessed the patient. Dr. Aguilar ordered to try weaning off oxygen from 6L to 2-3L. Weaned off the patient's oxygen to 3L and oxygen saturation within normal range. Will continue plan of care.
[2019-10-29 10:38] LABS: ALANINE AMINOTRANSFERASE 209 U/L (12-78); ALBUMIN 2.2 G/DL (3.4-5.0); ALBUMIN/GLOBULIN RATIO 0.4 (1.0-2.7); ALKALINE PHOSPHATASE 94 U/L (46-116); ANION GAP 9 mmol/L (5-15); ASPARTATE AMINO TRANSFERASE 127 U/L (15-37); BILIRUBIN,TOTAL 0.4 MG/DL (0.2-1.0); BLOOD UREA NITROGEN 12 mg/dL (7-18); CALCIUM 8.9 MG/DL (8.5-10.1); CARBON DIOXIDE 24 MMOL/L (21-32); CHLORIDE 99 MMOL/L (98-107); CREATININE 0.7 MG/DL (0.55-1.30); POTASSIUM 4.3 MMOL/L (3.5-5.1); SODIUM 132 MMOL/L (136-145)
--- NOTE | 2019-10-29 11:00 | NUR ---
NURSE NOTES: Notified Dr. Roberts regarding abnormal lab including WBC, Hgb, Na, AST, and ALT. Per Dr. Roberts, discontinue IVF. Will carry out the order as soon as possible. Will continue plan of care.
[2019-10-29 11:40] VITALS: BP 139/76
--- NOTE | 2019-10-29 12:00 | NUR ---
NURSE NOTES: The patient is stable without acute distress or shortness of breath. Gave lunch and assisted in feeding. No fever noted. Tolerating 3L NC well. Will continue plan of care.
--- NOTE | 2019-10-29 12:46 | Infectious Diseases Prog Note ---
Assessment/Plan Assessment/Plan A 1. COVID19 pneumonia Positive: 10/16 Negative: 10/25 2. fever resolved 3. hypertension 4. GERD P 1. Observe off antibiotic 2. Will f/u COVID test 3. Continue isolation Subjective ROS Limited/Unobtainable: Yes Constitutional: Denies: fever Allergies: Coded Allergies: No Known Allergies (Unverified , 10/17/19) Objective Vital Signs Last 24 Hour Vital Signs Date Time Temp Pulse Resp B/P (MAP) Pulse Ox O2 Delivery O2 Flow Rate FiO2 10/29/19 11:40 97.7 95 18 139/76 (97) 99 10/29/19 09:45 133/75 10/29/19 09:45 79 133/75 10/29/19 08:00 92 10/29/19 07:30 98.1 79 18 133/75 (94) 99 10/29/19 04:00 98.4 96 18 122/66 (84) 99 10/29/19 04:00 94 10/29/19 04:00 Nasal Cannula 6.0 10/29/19 04:00 6.0 10/29/19 02:32 130/60 10/29/19 00:00 109 10/29/19 00:00 6.0 10/29/19 00:00 97.7 107 18 134/61 (85) 100 10/29/19 00:00 Nasal Cannula 6.0 10/28/19 20:00 Nasal Cannula 6.0 10/28/19 20:00 97.7 108 18 107/59 (75) 100 10/28/19 20:00 6.0 10/28/19 19:26 120 10/28/19 18:24 120/77 10/28/19 16:11 96 10/28/19 16:00 99.1 101 18 120/77 (91) 98 10/28/19 16:00 Nasal Cannula 6.0 10/28/19 16:00 6.0 Height (Feet): 5 Height (Inches): 8.00 Weight (Pounds): 131 General Appearance: no acute distress HEENT: mucous membranes moist Respiratory/Chest: other - oxygen by nasal cannula Cardiovascular: normal rate Abdomen: soft, non tender Extremities: no edema Neurologic/Psychiatric: alert, responsive Musculoskeletal: atrophy Microbiology Date/Time Source Procedure Growth Status 10/26/19 15:30 Nasopharynx Coronavirus COVID-19 PCR ([facility]ESH) - Final Complete Laboratory Tests Test 10/29/19 09:45 White Blood Count 13.4 K/UL (4.8-10.8) H Red Blood Count 4.33 M/UL (4.70-6.10) L Hemoglobin 10.2 G/DL (14.2-18.0) L Hematocrit 30.9 % (42.0-52.0) L Mean Corpuscular Volume 72 FL (80-99) L Mean Corpuscular Hemoglobin 23.5 PG (27.0-31.0) L Mean Corpuscular Hemoglobin Concent 32.9 G/DL (32.0-36.0) Red Cell Distribution Width 16.5 % (11.6-14.8) H Platelet Count 726 K/UL (150-450) H Mean Platelet Volume 4.1 FL (6.5-10.1) L Neutrophils (%) (Auto) 77.5 % (45.0-75.0) H Lymphocytes (%) (Auto) 13.2 % (20.0-45.0) L Monocytes (%) (Auto) 6.5 % (1.0-10.0) Eosinophils (%) (Auto) 0.3 % (0.0-3.0) Basophils (%) (Auto) 2.5 % (0.0-2.0) H Sodium Level 132 MMOL/L (136-145) L Potassium Level 4.3 MMOL/L (3.5-5.1) Chloride Level 99 MMOL/L (98-107) Carbon Dioxide Level 24 MMOL/L (21-32) Anion Gap 9 mmol/L (5-15) Blood Urea Nitrogen 12 mg/dL (7-18) Creatinine 0.7 MG/DL (0.55-1.30) Estimat Glomerular Filtration Rate > 60 mL/min (>60) Glucose Level 112 MG/DL (74-106) H Calcium Level 8.9 MG/DL (8.5-10.1) Total Bilirubin 0.4 MG/DL (0.2-1.0) Aspartate Amino Transf (AST/SGOT) 127 U/L (15-37) H Alanine Aminotransferase (ALT/SGPT) 209 U/L (12-78) H Alkaline Phosphatase 94 U/L (46-116) Total Protein 7.3 G/DL (6.4-8.2) Albumin 2.2 G/DL (3.4-5.0) L Globulin 5.1 g/dL Albumin/Globulin Ratio 0.4 (1.0-2.7) L Current Medications Medications (Trade) Dose Ordered Sig/Leslie Route PRN Reason Start Time Stop Time Status Last Admin Dose Admin Acetaminophen (Tylenol) 325 mg Q6H PRN ORAL For Pain 10/27/19 09:15 11/16/19 09:14 Acetaminophen (Tylenol) 650 mg Q6H PRN ORAL Temp >100.5 10/27/19 09:15 11/17/19 09:14 Albuterol Sulfate (Proventil MDI) 1 puff Q4H PRN INH Shortness of Breath 10/27/19 09:15 01/15/20 09:14 Amlodipine Besylate (Norvasc) 10 mg DAILY ORAL 10/27/19 09:00 11/17/19 08:59 10/29/19 09:45 Atorvastatin Calcium (Lipitor) 20 mg BEDTIME ORAL 10/27/19 21:00 01/16/20 20:59 10/28/19 21:27 Captopril (Capoten) 12.5 mg Q8H ORAL 10/27/19 10:00 11/17/19 09:59 10/29/19 09:45 Guaifenesin/ Dextromethorphan (Robitussin DM Syrup) 10 ml Q4H PRN ORAL For Cough 10/27/19 09:15 01/18/20 09:14 Ondansetron HCl (Zofran) 4 mg Q6H PRN IVP Nausea & Vomiting 10/27/19 09:15 11/17/19 09:14 Potassium Chloride (K-Dur) 40 meq TWICE A DAY ORAL 10/27/19 09:00 01/19/20 11:44 10/29/19 09:44 Octavio Portillo MD October 29, 2019 12:46
--- NOTE | 2019-10-29 14:00 | NUR ---
NURSE NOTES: Notified Dr. Roberts regarding 7 beats of V-tach. No new order at this time. Will continue plan of care.
[2019-10-29 16:00] VITALS: BP 140/77
[2019-10-29] MEDS ORDERED: 1/2 NS 1000ml IV ONE (16:00)
--- NOTE | 2019-10-29 16:00 | NUR ---
NURSE NOTES: The patient is stable without acute distress or shortness of breath. Bed bath given. Will continue plan of care.
--- NOTE | 2019-10-29 19:15 | NUR ---
NURSE NOTES: Received report from ANA Myrick and Rick Lewis RN. Patient awaken bed, afebrile and has no respiratory distress. On NC at 3lpm saturating 96-97% flowing well. On 5 leads vehicle monitor technician SR. With Left forearm 20g IV line intact, flushed with NS and asymptomatic. With Azar catheter to urine bag draining well. Head of bed elevated. bed rails are up. Bed is locked and alarm is on. Continue current treatment plan. Addendum: 10/29/19 at 1950 by DIXON Magallanes RN Received report from ANA Grant.
--- NOTE | 2019-10-29 19:30 | NUR ---
HAND-OFF: Report given to ANA METCALF. The patient is stable at this time. Endorsed plan of care.
[2019-10-29 20:00] VITALS: BP_SYST 127; BP_SYST 136; BP_DIAS 57; BP_DIAS 73
[2019-10-29] MEDS: Atorvastatin 20mg tab ORAL SCH (20:15)
[2019-10-30] VITALS: BP 140/71
--- NOTE | 2019-10-30 01:04 | NUR ---
NURSE NOTES: Patient asleep in bed. On NC at 3lpm and saturating at 100%. No SOB. Continue to monitor the patient.
[2019-10-30] MEDS: Captopril 12.5mg tab ORAL SCH ×3 (01:39→17:36)
[2019-10-30 03:54] VITALS: BP 138/79
--- NOTE | 2019-10-30 04:00 | NUR ---
NURSE NOTES: Patient was awake and alert, able to follow commands. Tolerating 3lpm of O2 via NC saturating at 100%. Needs were attended. Changed gown, sheets and linen. Pt cooperated without any complaints. Patient went back to sleep after personal hygiene.
--- NOTE | 2019-10-30 07:30 | NUR ---
HAND-OFF: Report given to ANA Carter. Pt stable in bed and has no respiratory distress noted.
--- NOTE | 2019-10-30 07:35 | NUR ---
NURSE NOTES: Report received from DXION Magallanes RN.Pt awake,alert disoriented noted no resp distress on 3LNC no signs of pain or discomfort,SR on the monitor ,condom cath in placed draining yellow urine,,skin wqrm and dry,IV site to LFA intact ,SR up x2 call goetz within reach at bedside,bed lock in lowest position will continue with plans of care.
[2019-10-30 08:00] VITALS: BP 103/63
--- NOTE | 2019-10-30 09:54 | NUR ---
RD ASSESSMENT & RECOMMENDATIONS SEE CARE ACTIVITY FOR COMPLETE ASSESSMENT DAILY ESTIMATED NEEDS: Needs based on cardiac, suspected underweight 61.4kg 25-35 kcals/kg 2773-8332 total kcals 1-1.2 g protein/kg 61-74 g total protein 25-30 mL/kg 6534-3928 total fluid mLs NUTRITION DIAGNOSIS: Swallowing difficulty r/t h/o CVA, as evidenced by pt on ms ground diet. CURRENT DIET:Regular ms ground PO DIET RECOMMENDATIONS: Low Na diet/ texture per TAFE LECTURER ADDITIONAL RECOMMENDATIONS: 1) Maintain weekly calibrated bed scale wts 2) Continue Ensure BID w/ variable intake (350 kcal each) 3) Replete lytes as needed-> monitor daily 4) Monitor PO intake-> now on NC, po intake 50-75% 5) S/p floor txr-> rec to RECALIBRATE bed scale for accurate CBW
--- NOTE | 2019-10-30 11:18 | Infectious Diseases Prog Note ---
Assessment/Plan Assessment/Plan antibiotics : none A 1. COVID 19 pneumonia improving s/p hydroxychloroquine test 5.7.20 negative on 3 liters O2, saturation 99 percent 2. fever resolved 3. hypertension 4. GERD 5. prolonged QT P 1. continue off antibiotics 2. will follow up cultures 3. continue isolation Subjective ROS Limited/Unobtainable: Yes Allergies: Coded Allergies: No Known Allergies (Unverified , 10/17/19) Objective Vital Signs Last 24 Hour Vital Signs Date Time Temp Pulse Resp B/P (MAP) Pulse Ox O2 Delivery O2 Flow Rate FiO2 10/30/19 09:08 103/63 10/30/19 09:07 105 103/63 10/30/19 08:05 104 10/30/19 08:00 104 10/30/19 08:00 97.5 105 18 103/63 (76) 100 10/30/19 08:00 Nasal Cannula 3.0 10/30/19 04:00 Nasal Cannula 3.0 10/30/19 04:00 3.0 10/30/19 03:54 99.9 99 18 138/79 (98) 99 10/30/19 03:28 88 10/30/19 01:39 131/70 10/30/19 00:00 Nasal Cannula 3.0 10/30/19 00:00 98.4 96 18 140/71 (94) 99 10/30/19 00:00 82 10/29/19 20:00 98.4 106 18 136/73 (94) 99 10/29/19 20:00 Nasal Cannula 3.0 10/29/19 20:00 3.0 10/29/19 19:29 106 10/29/19 17:12 140/77 10/29/19 16:49 92 10/29/19 16:00 3.0 10/29/19 16:00 Nasal Cannula 3.0 10/29/19 16:00 97.9 104 18 140/77 (98) 99 10/29/19 12:00 Nasal Cannula 3.0 10/29/19 12:00 85 10/29/19 12:00 3.0 10/29/19 11:40 97.7 95 18 139/76 (97) 99 Height (Feet): 5 Height (Inches): 8.00 Weight (Pounds): 131 Current Medications Medications (Trade) Dose Ordered Sig/Leslie Route PRN Reason Start Time Stop Time Status Last Admin Dose Admin Acetaminophen (Tylenol) 325 mg Q6H PRN ORAL For Pain 10/27/19 09:15 11/16/19 09:14 Acetaminophen (Tylenol) 650 mg Q6H PRN ORAL Temp >100.5 10/27/19 09:15 11/17/19 09:14 Albuterol Sulfate (Proventil MDI) 1 puff Q4H PRN INH Shortness of Breath 10/27/19 09:15 01/15/20 09:14 Amlodipine Besylate (Norvasc) 10 mg DAILY ORAL 10/27/19 09:00 11/17/19 08:59 10/30/19 09:07 Atorvastatin Calcium (Lipitor) 20 mg BEDTIME ORAL 10/27/19 21:00 01/16/20 20:59 10/29/19 20:15 Captopril (Capoten) 12.5 mg Q8H ORAL 10/27/19 10:00 11/17/19 09:59 10/30/19 09:08 Guaifenesin/ Dextromethorphan (Robitussin DM Syrup) 10 ml Q4H PRN ORAL For Cough 10/27/19 09:15 01/18/20 09:14 Ondansetron HCl (Zofran) 4 mg Q6H PRN IVP Nausea & Vomiting 10/27/19 09:15 11/17/19 09:14 Potassium Chloride (K-Dur) 40 meq TWICE A DAY ORAL 10/27/19 09:00 01/19/20 11:44 10/30/19 09:06 Jone Foley MD October 30, 2019 11:18
[2019-10-30 12:00] VITALS: BP 142/69
--- NOTE | 2019-10-30 12:00 | NUR ---
NURSE NOTES: Pt resting quietly in bed no resp distress presented,stable,turned and repositioned.
--- NOTE | 2019-10-30 14:08 | NUR ---
CASE MANAGEMENT: REVIEW SI: COVID-19 . PNA T 99.9 HR 105 RR 18 BP 142/69 SAT 98% NC/3L REPEATED COVID TEST PENDING IS: K-DUR 40MEQ PO TWICE A DAY NORVASC 10MG PO DAILY ROBITUSSIN DM Q4HR NEEDED TYLENOL 325MG PO NEEDED CONTINUE ISOLATION PRECAUTIONS MED/SURG STATUS DCP: PATIENT IS FROM [facility]
--- NOTE | 2019-10-30 15:11 | Pulmonology Progress Note ---
Subjective ROS Limited/Unobtainable: Yes Interval Events: None new Constitutional: Denies: fever HEENT: Repors: no symptoms Respiratory: Reports: no symptoms Cardiovascular: Reports: no symptoms Gastrointestinal/Abdominal: Reports: no symptoms Genitourinary: Reports: no symptoms Allergies: Coded Allergies: No Known Allergies (Unverified , 10/17/19) Objective Last 24 Hour Vital Signs Date Time Temp Pulse Resp B/P (MAP) Pulse Ox O2 Delivery O2 Flow Rate FiO2 10/30/19 12:04 Nasal Cannula 3.0 10/30/19 12:00 97.3 98 18 142/69 (93) 98 10/30/19 09:08 103/63 10/30/19 09:07 105 103/63 10/30/19 08:05 104 10/30/19 08:00 104 10/30/19 08:00 97.5 105 18 103/63 (76) 100 10/30/19 08:00 Nasal Cannula 3.0 10/30/19 04:00 Nasal Cannula 3.0 10/30/19 04:00 3.0 10/30/19 03:54 99.9 99 18 138/79 (98) 99 10/30/19 03:28 88 10/30/19 01:39 131/70 10/30/19 00:00 Nasal Cannula 3.0 10/30/19 00:00 98.4 96 18 140/71 (94) 99 10/30/19 00:00 82 10/29/19 20:00 98.4 106 18 136/73 (94) 99 10/29/19 20:00 Nasal Cannula 3.0 10/29/19 20:00 3.0 10/29/19 19:29 106 10/29/19 17:12 140/77 10/29/19 16:49 92 10/29/19 16:00 3.0 10/29/19 16:00 Nasal Cannula 3.0 10/29/19 16:00 97.9 104 18 140/77 (98) 99 Intake and Output 10/29/19 10/30/19 19:00 07:00 Intake Total 400 ml 100 ml Output Total 900 ml 1000 ml Balance -500 ml -900 ml Intake Oral 400 ml 100 ml Output Urine Total 900 ml 1000 ml General Appearance: no acute distress HEENT: mucous membranes moist Respiratory/Chest: chest wall non-tender, lungs clear Cardiovascular: normal peripheral pulses, normal rate Abdomen: soft, non tender Extremities: no edema Neurologic/Psychiatric: alert, responsive Musculoskeletal: atrophy Current Medications Medications (Trade) Dose Ordered Sig/Leslie Route PRN Reason Start Time Stop Time Status Last Admin Dose Admin Acetaminophen (Tylenol) 325 mg Q6H PRN ORAL For Pain 10/27/19 09:15 11/16/19 09:14 Acetaminophen (Tylenol) 650 mg Q6H PRN ORAL Temp >100.5 10/27/19 09:15 11/17/19 09:14 Albuterol Sulfate (Proventil MDI) 1 puff Q4H PRN INH Shortness of Breath 10/27/19 09:15 01/15/20 09:14 Amlodipine Besylate (Norvasc) 10 mg DAILY ORAL 10/27/19 09:00 11/17/19 08:59 10/30/19 09:07 Atorvastatin Calcium (Lipitor) 20 mg BEDTIME ORAL 10/27/19 21:00 01/16/20 20:59 10/29/19 20:15 Captopril (Capoten) 12.5 mg Q8H ORAL 10/27/19 10:00 11/17/19 09:59 10/30/19 09:08 Guaifenesin/ Dextromethorphan (Robitussin DM Syrup) 10 ml Q4H PRN ORAL For Cough 10/27/19 09:15 01/18/20 09:14 Ondansetron HCl (Zofran) 4 mg Q6H PRN IVP Nausea & Vomiting 10/27/19 09:15 11/17/19 09:14 Potassium Chloride (K-Dur) 40 meq TWICE A DAY ORAL 10/27/19 09:00 01/19/20 11:44 10/30/19 09:06 Assessment/Plan Assessment/Plan IMPRESSION: 1. COVID 19 pneumonia. 2. Leukocytosis. 3. assisted resident. 4. Hypertension. 5. Hypoxemia; now on 3L/min O2 DISCUSSION: Continue home medications. Continue broad-spectrum antibiotics Continue oxygen and pulmonary hygiene. I will follow. Now on SDU Claudio Tirmizi, M.D. Tirmizi,Claudio Erick MD October 30, 2019 15:11
[2019-10-30 16:00] VITALS: BP 135/77
--- NOTE | 2019-10-30 17:34 | NUR ---
INSURANCE UPDATED CLINICALS AND REVIEWS HAVE BEEN FAXED TO: [facility] ref# pending ph# [phone] fax# [phone] & [facility] ref# [id number] CM: Maryanne Mixon ext [phone] fax# [phone]
--- NOTE | 2019-10-30 19:00 | NUR ---
HAND-OFF: Report given to DIXON Magallanes RN..
--- NOTE | 2019-10-30 19:30 | NUR ---
NURSE NOTES: Received report from ANA Carter. Patient asleep in bed, afebrile and has no respiratory distress. On NC at 3lpm saturating 96-97% flowing well. On 5 leads project technician SR. With Left forearm 20g IV line intact, flushed with NS and asymptomatic. With Azar catheter to urine bag draining well. Head of bed elevated. bed rails are up. Bed is locked and alarm is on. Continue current treatment plan
[2019-10-30 20:00] VITALS: BP 147/77
[2019-10-30] MEDS: Atorvastatin 20mg tab ORAL SCH (20:14)
[2019-10-31] VITALS: BP 145/84
--- NOTE | 2019-10-31 00:29 | Progress Note ---
DATE: 10/30/2019 SUBJECTIVE: A 69-year-old male came with fever, sepsis, hypoxia, and shortness of breath. The patient was found with COVID pneumonia. The patient was currently doing better, more awake and alert, in the bed. The patient is also tolerating diet. PHYSICAL EXAMINATION: VITAL SIGNS: Stable. CHEST: Bilateral few crackles. CARDIAC: Regular rhythm. ABDOMEN: Soft. EXTREMITIES: CCE. ASSESSMENT: 1. COVID pneumonia. 2. Metabolic encephalopathy. 3. Dementia. 4. Renal insufficiency is improved. PLAN: Continue current treatment. DC plan. Fritz Roberts M.D. DR: Nelli JOB#: [id number] CC:
[2019-10-31] MEDS: Captopril 12.5mg tab ORAL SCH ×3 (02:51→17:02)
[2019-10-31 04:00] VITALS: BP 148/81
--- NOTE | 2019-10-31 06:23 | NUR ---
NURSE NOTES: left a voicemail to Dr Foley regarding patient's COVID 3rd swab (10/27) negative result. Awaiting for response.
--- NOTE | 2019-10-31 07:00 | NUR ---
NURSE NOTES: received patient report from marilee rn. patient is on bed asleep. not in acute distress. IV line noted. skin intact.covid 19 swab reported (-). NOC nurse left a message to dr pedroza to dc isolation, awaiting callback. will follow plan of care.
--- NOTE | 2019-10-31 07:05 | NUR ---
HAND-OFF: Report given to Megan Bruner RN. Pt stable and asleep in bed.
[2019-10-31 08:00] VITALS: BP 155/86
--- NOTE | 2019-10-31 10:19 | NUR ---
CASE MANAGEMENT: REVIEW SI: COVID-19 . PNA T 96.4 HR 118 RR 26 BP 155/86 SAT 98% NC/3L WBC 13.4 H/H 10.2/30.9 NA 132 AST 127 ALT 209 IS: K-DUR 40MEQ PO TWICE A DAY NORVASC 10MG PO DAILY ROBITUSSIN DM Q4HR NEEDED TYLENOL 325MG PO NEEDED CONTINUE ISOLATION PRECAUTIONS STEP DOWN UNIT STATUS DCP: PATIENT IS FROM [facility]
--- NOTE | 2019-10-31 10:42 | Infectious Diseases Prog Note ---
Assessment/Plan Assessment/Plan antibiotics : none A 1. COVID 19 pneumonia improving s/p hydroxychloroquine test 5.7.20, 5.9.20 negative on 2 liters O2, saturation 98 percent 2. fever resolved 3. hypertension 4. GERD 5. prolonged QT P 1. continue off antibiotics 2. will follow up cultures 3. continue isolation Subjective ROS Limited/Unobtainable: Yes Allergies: Coded Allergies: No Known Allergies (Unverified , 10/17/19) Objective Vital Signs Last 24 Hour Vital Signs Date Time Temp Pulse Resp B/P (MAP) Pulse Ox O2 Delivery O2 Flow Rate FiO2 10/31/19 09:00 Nasal Cannula 2.0 10/31/19 08:14 118 155/86 10/31/19 08:00 103 10/31/19 08:00 96.4 118 26 155/86 (109) 98 10/31/19 04:00 85 10/31/19 04:00 Nasal Cannula 3.0 10/31/19 04:00 97.7 104 22 148/81 (103) 99 10/31/19 02:51 149/83 10/31/19 00:00 Nasal Cannula 3.0 10/31/19 00:00 98.5 99 22 145/84 (104) 99 10/30/19 23:30 92 10/30/19 20:00 Nasal Cannula 3.0 10/30/19 20:00 97.5 104 22 147/77 (100) 99 10/30/19 19:01 100 10/30/19 17:36 135/77 10/30/19 16:00 85 10/30/19 16:00 Nasal Cannula 3.0 10/30/19 16:00 97.2 91 22 135/77 (96) 99 10/30/19 12:04 Nasal Cannula 3.0 10/30/19 12:00 97.3 98 18 142/69 (93) 98 Height (Feet): 5 Height (Inches): 8.00 Weight (Pounds): 131 Microbiology Date/Time Source Procedure Growth Status 10/28/19 12:50 Nasopharynx Coronavirus COVID-19 PCR ([facility]) - Final Complete Current Medications Medications (Trade) Dose Ordered Sig/Leslie Route PRN Reason Start Time Stop Time Status Last Admin Dose Admin Acetaminophen (Tylenol) 325 mg Q6H PRN ORAL For Pain 10/27/19 09:15 11/16/19 09:14 Acetaminophen (Tylenol) 650 mg Q6H PRN ORAL Temp >100.5 10/27/19 09:15 11/17/19 09:14 Albuterol Sulfate (Proventil MDI) 1 puff Q4H PRN INH Shortness of Breath 10/27/19 09:15 01/15/20 09:14 Amlodipine Besylate (Norvasc) 10 mg DAILY ORAL 10/27/19 09:00 11/17/19 08:59 10/31/19 08:14 Atorvastatin Calcium (Lipitor) 20 mg BEDTIME ORAL 10/27/19 21:00 01/16/20 20:59 10/30/19 20:14 Captopril (Capoten) 12.5 mg Q8H ORAL 10/27/19 10:00 11/17/19 09:59 10/31/19 02:51 Guaifenesin/ Dextromethorphan (Robitussin DM Syrup) 10 ml Q4H PRN ORAL For Cough 10/27/19 09:15 01/18/20 09:14 Ondansetron HCl (Zofran) 4 mg Q6H PRN IVP Nausea & Vomiting 10/27/19 09:15 11/17/19 09:14 Potassium Chloride (K-Dur) 40 meq TWICE A DAY ORAL 10/27/19 09:00 01/19/20 11:44 10/30/19 17:37 Jone Foley MD October 31, 2019 10:42
[2019-10-31 12:00] VITALS: BP 166/115
--- NOTE | 2019-10-31 12:06 | Pulmonology Progress Note ---
Subjective ROS Limited/Unobtainable: Yes Interval Events: None new Constitutional: Denies: fever HEENT: Repors: no symptoms Respiratory: Reports: no symptoms Cardiovascular: Reports: no symptoms Gastrointestinal/Abdominal: Reports: no symptoms Genitourinary: Reports: no symptoms Allergies: Coded Allergies: No Known Allergies (Unverified , 10/17/19) Objective Last 24 Hour Vital Signs Date Time Temp Pulse Resp B/P (MAP) Pulse Ox O2 Delivery O2 Flow Rate FiO2 10/31/19 11:04 155/86 10/31/19 09:00 Nasal Cannula 2.0 10/31/19 08:14 118 155/86 10/31/19 08:00 103 10/31/19 08:00 96.4 118 26 155/86 (109) 98 10/31/19 04:00 85 10/31/19 04:00 Nasal Cannula 3.0 10/31/19 04:00 97.7 104 22 148/81 (103) 99 10/31/19 02:51 149/83 10/31/19 00:00 Nasal Cannula 3.0 10/31/19 00:00 98.5 99 22 145/84 (104) 99 10/30/19 23:30 92 10/30/19 20:00 Nasal Cannula 3.0 10/30/19 20:00 97.5 104 22 147/77 (100) 99 10/30/19 19:01 100 10/30/19 17:36 135/77 10/30/19 16:00 85 10/30/19 16:00 Nasal Cannula 3.0 10/30/19 16:00 97.2 91 22 135/77 (96) 99 Intake and Output 10/30/19 10/31/19 19:00 07:00 Intake Total 1100 ml 503 ml Output Total 750 ml 500 ml Balance 350 ml 3 ml Intake Oral 1100 ml 503 ml Output Urine Total 750 ml 500 ml General Appearance: no acute distress HEENT: mucous membranes moist Respiratory/Chest: chest wall non-tender, lungs clear Cardiovascular: normal peripheral pulses, normal rate Abdomen: soft, non tender Extremities: no edema Neurologic/Psychiatric: alert, responsive Musculoskeletal: atrophy Microbiology Date/Time Source Procedure Growth Status 10/28/19 12:50 Nasopharynx Coronavirus COVID-19 PCR ([facility]) - Final Complete Current Medications Medications (Trade) Dose Ordered Sig/Leslie Route PRN Reason Start Time Stop Time Status Last Admin Dose Admin Acetaminophen (Tylenol) 325 mg Q6H PRN ORAL For Pain 10/27/19 09:15 11/16/19 09:14 Acetaminophen (Tylenol) 650 mg Q6H PRN ORAL Temp >100.5 10/27/19 09:15 11/17/19 09:14 Albuterol Sulfate (Proventil MDI) 1 puff Q4H PRN INH Shortness of Breath 10/27/19 09:15 01/15/20 09:14 Amlodipine Besylate (Norvasc) 10 mg DAILY ORAL 10/27/19 09:00 11/17/19 08:59 10/31/19 08:14 Atorvastatin Calcium (Lipitor) 20 mg BEDTIME ORAL 10/27/19 21:00 01/16/20 20:59 10/30/19 20:14 Captopril (Capoten) 12.5 mg Q8H ORAL 10/27/19 10:00 11/17/19 09:59 10/31/19 11:04 Guaifenesin/ Dextromethorphan (Robitussin DM Syrup) 10 ml Q4H PRN ORAL For Cough 10/27/19 09:15 01/18/20 09:14 Ondansetron HCl (Zofran) 4 mg Q6H PRN IVP Nausea & Vomiting 10/27/19 09:15 11/17/19 09:14 Potassium Chloride (K-Dur) 40 meq TWICE A DAY ORAL 10/27/19 09:00 01/19/20 11:44 10/30/19 17:37 Assessment/Plan Assessment/Plan IMPRESSION: 1. COVID 19 pneumonia. 2. Leukocytosis. 3. long term resident. 4. Hypertension. 5. Hypoxemia; now on 3L/min O2 DISCUSSION: Continue home medications. Continue broad-spectrum antibiotics Continue oxygen and pulmonary hygiene. I will follow. Now on SDU Lior Shultz Omar Syed MD October 31, 2019 12:06
[2019-10-31 16:00] VITALS: BP 145/77
--- NOTE | 2019-10-31 16:25 | NUR ---
INSURANCE UPDATED CLINICALS AND REVIEWS HAVE BEEN FAXED TO: [facility] ref# pending ph# [phone] fax# [phone] & [facility] ref# [id number] CM: Maryanne Mixon ext [phone] fax# [phone]
--- NOTE | 2019-10-31 19:20 | NUR ---
HAND-OFF: Report given to marilee smith.
--- NOTE | 2019-10-31 19:20 | NUR ---
NURSE NOTES: Received report from ANA Carter. Patient awake in bed, afebrile and has no respiratory distress. On NC at 2lpm saturating 96-97% flowing well. On 5 leads ekg monitor tech SR. With Left forearm 20g IV line intact, flushed with NS and asymptomatic. With Azar catheter to urine bag draining well. Head of bed elevated. Call light within reach. bed rails are up. Bed is locked and alarm is on. Continue current treatment plan Addendum: 10/31/19 at 2011 by DIXON Magallanes RN NURSE NOTES: Correction: 10/31/19: Received report from Megan Bruner RN. Patient awake in bed, afebrile and has no respiratory distress. On NC at 2lpm saturating 96-97% flowing well. On 5 leads ekg monitor tech SR. With Left forearm 20g IV line intact, flushed with NS and asymptomatic. With Azar catheter to urine bag draining well. Head of bed elevated. Call light within reach. bed rails are up. Bed is locked and alarm is on. Continue current treatment plan
--- NOTE | 2019-10-31 19:53 | NUR ---
HAND-OFF: Report given to ANA Weeks. Pt Stable and awake in bed. On NC at 2lpm. Pt toelrated the transfer to 4e med surg unit.
[2019-10-31 20:00] VITALS: BP 133/85
--- NOTE | 2019-10-31 20:00 | NUR ---
NURSE NOTES: Patient received from telemetry, nonverbal. On o2 via NC. FC draining via gravity. No belongings. Will continue plan of care.
[2019-10-31] MEDS ORDERED: Albuterol 90mcg Inhaler 8gm INH PRN (20:30)
[2019-10-31] MEDS ORDERED: Guaifenesin/DM 10ml syrup ORAL PRN (20:30)
[2019-10-31] MEDS ORDERED: Atorvastatin 20mg tab ORAL SCH (21:00)
[2019-11-01] VITALS: BP 144/80
--- NOTE | 2019-11-01 01:00 | Progress Note ---
DATE: 10/31/2019 SUBJECTIVE: This is a 69-year-old male came with COVID positive pneumonia and acute bronchitis. The patient is improving. The patient has no contact isolation. PHYSICAL EXAMINATION: VITAL SIGNS: Blood pressure is 130/70, pulse 74 and respirations 18. HEENT: NAD. CHEST: Bilateral decreased breath sounds. CARDIOVASCULAR: Regular rhythm. No gallop. No murmur. ABDOMEN: Bowel soft. Positive bowel sounds. EXTREMITIES: CCE. ASSESSMENT: 1. COVID pneumonia is resolving. 2. Dementia. 3. Depression. 4. Hypertension. 5. Sepsis is improving. PLAN: Continue antibiotic. Continue bronchodilator treatments. Continue psychotropics as needed. Psych is consult. Pulmonary and ID is also on case. Fritz Roberts M.D. DR: Nelli JOB#: [id number] CC:
[2019-11-01] MEDS: Captopril 12.5mg tab ORAL SCH ×2 (02:04→10:00)
[2019-11-01 04:00] VITALS: BP 146/67
--- NOTE | 2019-11-01 07:19 | NUR ---
HAND-OFF: Report given to Tequila PEREZ.
[2019-11-01 08:25] VITALS: BP 142/70
--- NOTE | 2019-11-01 10:29 | Infectious Diseases Prog Note ---
Assessment/Plan Assessment/Plan antibiotics : none A 1. COVID 19 pneumonia improving s/p hydroxychloroquine test 5.7.20, 5.9.20 negative on 2 liters O2, saturation 98 percent 2. fever resolved 3. hypertension 4. GERD 5. prolonged QT P 1. continue off antibiotics 2. will follow up cultures 3. continue isolation Subjective ROS Limited/Unobtainable: Yes Allergies: Coded Allergies: No Known Allergies (Unverified , 10/17/19) Objective Vital Signs Last 24 Hour Vital Signs Date Time Temp Pulse Resp B/P (MAP) Pulse Ox O2 Delivery O2 Flow Rate FiO2 11/01/19 10:00 104/70 11/01/19 09:30 Nasal Cannula 2.0 11/01/19 08:29 113 142/70 11/01/19 08:25 98.2 113 18 142/70 (94) 98 11/01/19 04:00 97.2 100 28 146/67 (93) 96 11/01/19 02:04 146/82 11/01/19 00:00 96.3 97 28 144/80 (101) 95 10/31/19 21:00 Nasal Cannula 2.0 10/31/19 20:00 96.9 97 24 133/85 (101) 98 10/31/19 17:02 145/77 10/31/19 16:00 98 10/31/19 16:00 96.6 92 24 145/77 (99) 89 10/31/19 12:00 98.1 117 25 166/115 (132) 98 10/31/19 11:40 101 10/31/19 11:04 155/86 Height (Feet): 5 Height (Inches): 8.00 Weight (Pounds): 124 Current Medications Medications (Trade) Dose Ordered Sig/Leslie Route PRN Reason Start Time Stop Time Status Last Admin Dose Admin Acetaminophen (Tylenol) 325 mg Q6H PRN ORAL For Pain 10/31/19 20:30 11/16/19 20:29 Acetaminophen (Tylenol) 650 mg Q6H PRN ORAL Temp >100.5 10/31/19 20:30 11/17/19 20:29 Albuterol Sulfate (Proventil MDI) 1 puff Q4H PRN INH Shortness of Breath 10/31/19 20:30 01/15/20 20:29 Amlodipine Besylate (Norvasc) 10 mg DAILY ORAL 11/01/19 09:00 11/17/19 08:59 11/01/19 08:29 Atorvastatin Calcium (Lipitor) 20 mg BEDTIME ORAL 10/31/19 21:00 01/16/20 20:59 10/31/19 20:35 Captopril (Capoten) 12.5 mg Q8H ORAL 11/01/19 02:00 11/17/19 09:59 11/01/19 02:04 Guaifenesin/ Dextromethorphan (Robitussin DM Syrup) 10 ml Q4H PRN ORAL For Cough 10/31/19 20:30 01/18/20 20:29 Ondansetron HCl (Zofran) 4 mg Q6H PRN IVP Nausea & Vomiting 10/31/19 20:30 11/17/19 20:29 Potassium Chloride (K-Dur) 40 meq TWICE A DAY ORAL 11/01/19 09:00 01/19/20 11:44 11/01/19 08:28 Jone Foley MD November 01, 2019 10:29
--- NOTE | 2019-11-01 10:49 | Pulmonology Progress Note ---
Subjective ROS Limited/Unobtainable: Yes Interval Events: None new Constitutional: Denies: fever HEENT: Repors: no symptoms Respiratory: Reports: no symptoms Cardiovascular: Reports: no symptoms Gastrointestinal/Abdominal: Reports: no symptoms Genitourinary: Reports: no symptoms Allergies: Coded Allergies: No Known Allergies (Unverified , 10/17/19) Objective Last 24 Hour Vital Signs Date Time Temp Pulse Resp B/P (MAP) Pulse Ox O2 Delivery O2 Flow Rate FiO2 11/01/19 10:00 104/70 11/01/19 09:30 Nasal Cannula 2.0 11/01/19 08:29 113 142/70 11/01/19 08:25 98.2 113 18 142/70 (94) 98 11/01/19 04:00 97.2 100 28 146/67 (93) 96 11/01/19 02:04 146/82 11/01/19 00:00 96.3 97 28 144/80 (101) 95 10/31/19 21:00 Nasal Cannula 2.0 10/31/19 20:00 96.9 97 24 133/85 (101) 98 10/31/19 17:02 145/77 10/31/19 16:00 98 10/31/19 16:00 96.6 92 24 145/77 (99) 89 10/31/19 12:00 98.1 117 25 166/115 (132) 98 10/31/19 11:40 101 10/31/19 11:04 155/86 Intake and Output 10/31/19 11/01/19 19:00 07:00 Intake Total 750 ml Output Total 800 ml 500 ml Balance -50 ml -500 ml Intake Oral 750 ml Output Urine Total 800 ml 500 ml General Appearance: no acute distress HEENT: mucous membranes moist Respiratory/Chest: chest wall non-tender, lungs clear Cardiovascular: normal peripheral pulses, normal rate Abdomen: soft, non tender Extremities: no edema Neurologic/Psychiatric: alert, responsive Musculoskeletal: atrophy Current Medications Medications (Trade) Dose Ordered Sig/Leslie Route PRN Reason Start Time Stop Time Status Last Admin Dose Admin Acetaminophen (Tylenol) 325 mg Q6H PRN ORAL For Pain 10/31/19 20:30 11/16/19 20:29 Acetaminophen (Tylenol) 650 mg Q6H PRN ORAL Temp >100.5 10/31/19 20:30 11/17/19 20:29 Albuterol Sulfate (Proventil MDI) 1 puff Q4H PRN INH Shortness of Breath 10/31/19 20:30 01/15/20 20:29 Amlodipine Besylate (Norvasc) 10 mg DAILY ORAL 11/01/19 09:00 11/17/19 08:59 11/01/19 08:29 Atorvastatin Calcium (Lipitor) 20 mg BEDTIME ORAL 10/31/19 21:00 01/16/20 20:59 10/31/19 20:35 Captopril (Capoten) 12.5 mg Q8H ORAL 11/01/19 02:00 11/17/19 09:59 11/01/19 02:04 Guaifenesin/ Dextromethorphan (Robitussin DM Syrup) 10 ml Q4H PRN ORAL For Cough 10/31/19 20:30 01/18/20 20:29 Ondansetron HCl (Zofran) 4 mg Q6H PRN IVP Nausea & Vomiting 10/31/19 20:30 11/17/19 20:29 Potassium Chloride (K-Dur) 40 meq TWICE A DAY ORAL 11/01/19 09:00 01/19/20 11:44 11/01/19 08:28 Assessment/Plan Assessment/Plan IMPRESSION: 1. COVID 19 pneumonia. 2. Leukocytosis. 3. group home resident. 4. Hypertension. 5. Hypoxemia; now on 2L/min O2 DISCUSSION: Continue home medications. Continue broad-spectrum antibiotics Continue oxygen and pulmonary hygiene. I will follow. Now on SDU Claudio Aguilar M.D. Claudio Aguilar MD November 01, 2019 10:49
[2019-11-01 12:00] VITALS: BP 140/74
--- NOTE | 2019-11-01 13:22 | NUR ---
CASE MANAGEMENT: DCP UPON DISCHARGE PATIENT WILL TRANSFER BACK TO [facility] RM[facility][id number] [phone] CHARGE NURSE FLORINA HAS INFORMED THE PATIENT HE WILL BE RETURNING TO HIS PREVIOUS FACILITY TRANSPORTATION VIA [facility] [id number] Addendum: 11/01/19 at 1330 by NICOL ROSARIO CM ADDICTION THERAPIST TIME 15:30 Addendum: 11/01/19 at 1359 by NICOL ROSARIO CM PER [facility] ; CALL THE CAR [phone] OPT 4 WILL PICK THE PATIENT UP AT 15:30 Addendum: 11/01/19 at 1407 by MOOKIE CONNELL CM [facility]
--- NOTE | 2019-11-01 14:07 | NUR ---
INSURANCE UPDATED CLINICALS AND REVIEWS HAVE BEEN FAXED TO: [facility] ref# pending ph# [phone] fax# [phone] & [facility] ref# [id number] CM: Maryanne Mixon ext [phone] fax# [phone]
--- NOTE | 2019-11-01 16:07 | NUR ---
NURSE NOTES: Patient discharge to [facility], service ambulance personnel will transport patient. IV removed,ID hospital band removed,Patient has no personal belongings.No family contact was noted on face sheet.Patient cedillo catheter remains in place.report was given to Cheryl PEREZ at [facility].
--- NOTE | 2019-11-01 22:14 | Progress Note ---
DATE: 11/01/2019 SUBJECTIVE: This is an elderly male, currently in bed, comfortable. Doing fine. No distress. PHYSICAL EXAMINATION: VITAL SIGNS: Blood pressure is 140/74, pulse 69, respirations 19, and temperature 97.7. HEENT: NAD. CHEST: Bilateral decreased breath sounds. CARDIOVASCULAR: Regular rhythm. ABDOMEN: Soft. EXTREMITIES: CCE. NEUROLOGICAL: Generalized weakness. LABORATORY AND DIAGNOSTIC DATA: Sodium 132, potassium 4.3, BUN 12, creatinine 0.7. The patient's ABG was not recently. HOSPITAL COURSE: The patient came in altered mental status, sepsis, COVID pneumonia, and metabolic acidosis. The patient was initially admitted in step-down. ABG was done. Pulmonary consult and ID consult were obtained. The patient received IV antibiotics and also NPO and NG tube. The patient is currently more awake, alert, eating better. His fever subsided. Cultures are so far negative. The patient was also started on antihypertensive medication. The patient is going back to shelter with p.o. feeding. The patient was improved after 10 days of the hospital course. Cardiology, Pulmonary, and ID consult were obtained. DISCHARGE MEDICATIONS: See the list from the hospital. Fritz Roberts M.D. DR: ANDRES JOB#: [id number] CC:
--- NOTE | 2019-11-02 13:56 | Discharge Summary ---
Discharge Summary Discharge Summary _ DATE OF ADMISSION: 10/17/2019 DATE OF DISCHARGE: 11/01/2019 DISCHARGED BY: Dr. Roberts REASON FOR ADMISSION: 69 years old male, resident of [facility] facility , with past medical history of CHF, cardiomyopathy, hypertension, COPD, tobacco smoker, presented for evaluation due to fever, cough and shortness of breath for the last few days. Upon evaluation patient was febrile with temperature 103.5 , blood pressure was elevated 172/90. Laboratory work-up revealed leukocytosis WBC 11.6 ,hemoglobin 12.7 ,hematocrit 41.7 ,platelet count 303. Stable electrolytes. BUN 23, creatinine 0.9. Lactic acid 1.1. Glucose 117. AST 50, ALT 44, lipase 155. Troponin negative, pro BNP 121. Urinalysis revealed +2 protein ,no evidence of urinary tract infection. EKG revealed sinus rhythm no acute ischemic changes. Chest x-ray demonstrated slight hyperinflation , probably suggesting COPD. Possible pneumonia. In emergency department patient pancultured and admitted for further management . Patient was also swabbed for COVID-19. CONSULTANTS: pulmonary Dr. Aguilar ID specialist Dr. Octavio Solisdayron [facility] COURSE: Patient admitted to isolation room. Patient started on IV fluids and empiric antibiotics. Blood cultures were negative. Influenza swab was negative. SARS-CoV-2 by PCR on 10/16 was detected. Patient remained in isolation. Patient received Plaquenil . QT interval was closely monitored. Antibiotic provided for pneumonia as per ID specialist recommendation. Supplemental oxygen provided and titrated to keep pulse oximetry above 92%. Pulmonary toilet provided. Antitussive provided as needed. Urine culture was negative. Repeated SARS-CoV-2 2 by PCR on 10/25 and 10/27 was not detected. Fevers resolved. GI prophylaxis provided. SNF medication continued. Antiplatelet therapy with aspirin and statin provided. Blood pressure was managed with calcium channel mary and VIRI inhibitor. Patient clinically stabilized and was ready for transfer back to [facility] facility for continuation of care. FINAL DIAGNOSES: Sepsis Confirmed COVID-19 pneumonia COPD exacerbation Altered mental status CHF Hypertension History of smoking GERD Hypoxemia DISCHARGE MEDICATIONS: See Medication Reconciliation list. DISCHARGE INSTRUCTIONS: Patient was discharged to the [facility] facility. Follow up with medical doctor at the facility. 68 years old male I have been assigned to dictate discharge summary for this account. I was not involved in the patient's management. Crystal Diaz CHEMICAL RESEARCH ENGINEER November 02, 2019 13:56
--- NOTE | 2019-11-02 15:09 | NUR ---
INSURANCE discharge summary has been faxed to: [facility] ref# pending ph# [phone] fax# [phone] & [facility] ref# [id number] CM: Maryanne Mixon ext [phone] fax# [phone]
== END 2019-11-01 16:00 | DRG 720 ==
LOC: EDBD 17:59 → EMR 18:20 → 2E 18:36 → EDBEDREQ 10-18 12:49 → 2E 10-18 14:00 → 4E 10-21 01:50 → ICU 10-27 05:07 → 2W 10-27 05:33 → 4E 10-31 20:00
DX: A41.89 Other specified sepsis (principal); J44.1 Chronic obstructive pulmonary disease with (acute) exacerbation; E86.0 Dehydration; U07.1 COVID-19; J12.89 Other viral pneumonia; E87.6 Hypokalemia; R09.02 Hypoxemia; L89.154 Pressure ulcer of sacral region, stage 4; J20.9 Acute bronchitis, unspecified; Z68.20 Body mass index [BMI] 20.0-20.9, adult; N39.0 Urinary tract infection, site not specified; I11.0 Hypertensive heart disease with heart failure; I50.9 Heart failure, unspecified; Z87.891 Personal history of nicotine dependence; K21.9 Gastro-esophageal reflux disease without esophagitis; Z86.73 Personal history of transient ischemic attack (TIA), and cerebral infarction without residual deficits; E78.5 Hyperlipidemia, unspecified; G93.40 Encephalopathy, unspecified; E46 Unspecified protein-calorie malnutrition; R94.31 Abnormal electrocardiogram [ECG] [EKG]; F03.90 Unspecified dementia, unspecified severity, without behavioral disturbance, psychotic disturbance, mood disturbance, and anxiety
CPT/HCPCS: 36415; 36600; 71045; 80048; 80053; 81001; 81003; 82270; 82550; 82553; 82803; 82962; 83605; 83690; 83880; 84484; 85007; 85025; 86710; 87040; 87081; 87086; 87635; 93005; 94664; 96360; 99285; J7030; J8499